=== PATIENT | female | born 1955 | race Caucasian/White ===

== ENCOUNTER 2025-05-11 16:21 | Inpatient (IN) | payer MEDICARE, SELFPAY ==
--- OUTSIDE RECORDS SUMMARY | 2025-05-04 09:55 | XMS_ITS | Encounter Summary ---
Author Organization [facility] Address [address] [place] [address] Care Team Providers Care Spray Technician Name Role Phone Uziel Ford MD Unavailable [phone] Rowdy Sandra DO Primary Care Provider [phone] Reason for Referral * (Routine) - New Request Specialty Diagnoses / Procedures Referred By Meli jernigan Referred To Contact Procedures OT Evbrenda and Fredis Sommer MD [address] [place] [address] Phone: tel: fax: Referral ID Status Reason Start Date Expiration Date V isits Requested Visits Authorized [id number] New Request 05/09/2025 05/09/2026 1 1 * (Routine) - New Request Specialty Diagnoses / Procedures Referred By Meli jernigan Referred To Contact Procedures PT Fredis Leiva MD [address] [place] [address] Phone: tel: fax: Referral ID Status Reason Start Date Expiration Date V isits Requested Visits Authorized [id number] New Request 05/09/2025 05/09/2026 1 1 * Imaging (Emergency) - New Request Specialty Diagnoses / Procedures Referred By Contac t Referred To Contact RADIOLOGY Procedures CT ABD+PEL W IV CON ONLY Lucero Russ MD [address] [place] [address] Phone: tel: fax: Referral ID Status Reason Start Date Expiration Date V isits Requested Visits Authorized [id number] New Request 05/04/2025 05/04/2026 1 1 Reason for Visit * Reason Comments Abdominal Pain * Auth/Cert (Routine) Specialty Diagnoses / Procedures Referred By Contac t Referred To Contact Diagnoses Partial small bowel obstruction (CMS/HCC HHS/HCC) Small bowel obstruction, partial (CMS/HCC HHS/HCC) Procedures NONE Fredis Navarro MD [address] [place] [address] Phone: tel: fax: Referral ID Status Reason Start Date Expiration Date Visits Re quested Visits Authorized [id number] 1 1 Encounter Details Date Type Department Care Team (Latest Contact Info) Description 05/04/2025 9:55 AM CDT - 05/11/2025 3:02 PM CDT Hospital Encounter [address] [address] Lucero Russ MD [address] [place], [place] [id number] Fredis Navarro MD [address] [place], [place] [address] Mumtaz Lim MD [address] [place] [address] Abdominal Pain Discharge Disposition: Swing Bed Social History Tobacco Use Types Packs/Day Years Used Date Smoking Tobacco: Former Cigarettes 0.5 50 1 09/02/1968 - 07/03/2019 Smokeless Tobacco: Never Alcohol Use Standard Drinks/Week Comments No 0 (1 standard drink = 0.6 oz pure alcohol) history of alcohol use and abuse- quit in april of 2019 (would have a pint of liquor per day) [facility] Utilities Answer Date Recorded In the past 12 months has e [employer], gas, oil, or water [employer] threatened to shut off services in your home? No 05/04/2025 Humiliation, Afraid, Rape, and Kick questionnair e Answer Date Recorded Within the last year, have y ou been afraid of your partner or ex-partner? No 05/04/2025 Within the last year, have y ou been humiliated or emotionally abused in other ways by your partner or ex-partner? No Within the last year, have y ou been kicked, hit, slapped, or otherwise physically hurt by your partner or ex-partner? No 05/04/2025 Within the last year, have y ou been raped or forced to have any kind of sexual activity by your partner or ex-partner? No 05/04/2025 AUDIT-C Answer Date Recorded Frequency of Alcohol Consumption Never 07/30/2018 Average Number of Drinks Not on file 018 Frequency of Binge Drinking Not on file 07/18 Overall Financial Resource Strain (CARDIA) Answe r Date Recorded How hard is it for you to pa y for the very basics like food, housing, medical care, and heating? Not hard at all 05/04/2025 Hunger Vital Sign Answer Date Recorded Within the past 12 months, y ou worried that your food would run out before you got the money to buy more. Never true 05/04/20 25 Within the past 12 months, t he food you bought just didn't last and you didn't have money to get more. Never true 05/04/2025 PRAPARE - Transportation Answer Date Re corded In the past 12 months, has l ack of transportation kept you from medical appointments or from getting medications? Yes 04/18 In the past 12 months, has l ack of transportation kept you from meetings, work, or from getting things needed for daily living? Yes 05/04/2025 Housing Stability Vital Sign Answer Sina e Recorded In the last 12 months, was t here a time when you were not able to pay the mortgage or rent on time? No 08/11/2023 In the last 12 months, how many places have you lived? 1 08/11/2023 In the last 12 months, was t here a time when you did not have a steady place to sleep or slept in a chcf (including now)? No 08/11/2023 Housing Stability Vital Sign Answer Sina e Recorded In the last 12 months, was t here a time when you were not able to pay the mortgage or rent on time? No 05/04/2025 In the past 12 months, how m any times have you moved where you were living? 0 05/04/2025 At any time in the past 12 m [facility], were you homeless or living in a chcf (including now)? 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 Sexual Orientation Not on file Occupation Industry Job Start Date Job End Date disabled Not on file Not on file Not on file documented as of this encounter Last Filed Vital Signs Vital Sign Reading Time Taken Comments Blood Pressure 141/80 05/11/2025 11:18 AM CDT Pulse 80 05/11/2025 11:18 AM CDT Temperature 37.1 C (98.8 F) 05/11/2025 11:18 AM CDT Respiratory Rate 18 05/10/2025 10:02 PM CDT Oxygen Saturation 100% 05/11/2025 11:18 AM CDT Inhaled Oxygen Concentration - - Weight 60.9 kg (134 lb 4.2 oz) 05/04/2025 9:57 A M CDT Height 165.1 cm (5' 5) 05/04/2025 9:57 AM CDT Body Mass Index 22.34 05/04/2025 9:57 AM CDT documented in this encounter Functional Status * Question Answer Date of Assessment Author Status Do you have serious difficulty walking or climbing stairs? No 05/04/2025 3:53 PM CDT Leigh Ann Fairchild RN Activ e * Question Answer Date of Assessment Author Status Do you have difficulty dressing or bathing? No 05/04/2025 3:53 PM CDT Leigh Ann Fairchild RN A ctive Because of a physical, mental, or emotional condition, do you have difficulty doing errands alone such as visiting a doctor's office or shopping? No 05/04/2025 3:53 PM CDT Leigh Ann Fairchild RN Active * Are you deaf or do you have serious difficulty hearing Answer Date of Assessment Author Status No 05/04/2025 3:53 PM CDT Leigh Ann Fairchild RN Active * Are you blind or do you have serious difficulty seeing, even when wearing glasses? Answer Date of Assessment Author Status No 05/04/2025 3:53 PM LALITHAT Leigh Ann Fairchild RN Active * Do you have serious difficulty walking or climbing stairs? Answer Date of Assessment Author Status No 05/04/2025 3:53 PM LALITHAT Leigh Ann Fairchild RN Active * Do you have difficulty dressing or bathing? Answer Date of Assessment Author Status No 05/04/2025 3:53 PM CDT Leigh Ann Fairchild RN Active * Because of a physical, mental, or emotional condition, do you have difficulty doing errands alone such as visiting a doctor's office or shopping? Answer Date of Assessment Author Status No 05/04/2025 3:53 PM CDT Leigh Ann Fairchild RN Active * Question Answer Date of Assessment Author Status Are you deaf or do you have serious difficulty hearing No 05/04/2025 3:53 PM LALITHAT Leigh Ann Fairchild RN Active Are you blind or do you have serious difficulty seeing, even when wearing glasses? No 05/04/2025 3:53 PM CDT Leigh Ann Fairchild RN Active * Calculated C-SSRS Risk Score (Lifetime/Recent) Answer Date of Assessment Author Status No Risk Indicated 05/04/2025 9:59 AM CDT uJlia Sosa, Nurse Caputo II Active * [place] Suicide Severity Rating Scale (Screener/Recent Self-Report) Question Answer Date of Assessment Author Status 1. Wish to be (Past 1 Month) No 05/04/2025 9:59 AM CDT SheilaJulia, Nurs e Sea Captain II Active 2. Non-Specific Active Suicidal Thoughts (Past 1 Month) No 05/04/2025 9:59 AM CDT Julia Sosa, Nurs e Sea Captain II Active 6. Suicidal Behavior (Lifetime) No 05/04/2025 9:59 AM CDT Julia Sosa, Nurs e Sea Captain II Active documented as of this encounter Mental Status * Question Answer Entry Date Author Status Because of a physical, mental, or emotional condition, do you have serious difficulty concentrating, remembering, or making decisions? No 05/04/2025 3:53 PM CDT Leigh Ann Fairchild RN A ctive * Because of a physical, mental, or emotional condition, do you have serious difficulty concentrating, remembering, or making decisions? Answer Entry Date Author Status No 05/04/2025 3:53 PM CDT Leigh Ann Fairchild RN Active documented in this encounter Discharge Summaries * Mumtaz Lim MD - 05/11/2025 2:28 PM CDT Images from the original note were not included. Hospitalist Discharge Summary Patient ID: Leila Adorno [id number] 70-year-old 1955 Admit date: 05/04/2025 Expected Discharge Date: 05/11/2025 Primary care Physician: ROWDY SANDRA DO Admitting Physician: Fredis Navarro MD Discharge Physician: MUMTAZ LIM MD Admission Diagnoses: Partial small bowel obstruction ([facility]/HCC HHS/HCC) [K56.600] Small bowel obstruction, partial (CMS/HCC HHS/HCC) [K56.600] Discharge Diagnoses: Recurrent partial small bowel obstruction Parastomal hernia Chronic hypoxic respiratory failure COPD Hypertension Past Medical History Past Medical History[1] Brief Hospital Course: 70-year-old female with PMH of bowel obstruction s/p sigmoid colectomy and end colostomy (2018), recurrent partial bowel obstruction, HTN, CAD, COPD on 3 L supplemental oxygen, anxiety, depression, RLS, hypothyroidism, and chronic anemia, presented to ED via EMS with progressively worsening left lower quadrant abdominal pain and decreased colostomy output. CT abdomen/pelvis with interval progression of multifocal abdominal wall hernias, with 1 ventral abdominal hernia containing new loop of small bowel with no evidence of high-grade obstruction. PETER General Surgery was consulted. Surgery recommended conservative management. Her symptoms improved, tolerating diet well. Appreciated. Therapy recommended patient to be discharged to the swing bed, case management involved discharge planning. Patient tolerating diet prior to discharge Problem Based course: 1. Recurrent partial small bowel obstruction, partially reducible parastomal hernia - PETER General Surgery on consult, appreciate recommendations - Surgical intervention deferred to surgery. colostomy bag with stool. No acute surgical intervention required at this time. Lactic acid within normal range. Advance diet, tolerating well Continue analgesia 2. Advanced COPD, chronic hypoxic respiratory failure - 3L home oxygen at baseline, continue oxygen as needed to maintain SpO2 88-92% - DuoNebs as needed 3. HTN, anxiety, RLS, hypothyroidism, chronic microcytic anemia - Chronic, stable, add complexity to case Continue home regimen 4. Weakness Therapy recommending swing bed placement Consults: general surgery Procedures/Significant Diagnostic Studies: XR ABD KUB Final Result by User, [id number] (05/07 719) [place] [address]49 1 VIEW(s) OF THE ABDOMEN History: Obstruction Comparison:February 20, 2020 A single view of the abdomen demonstrates a grossly normal bowel gas pattern. No pathologic intra-abdominal calcifications are seen. A nonspecific catheter overlies the left lower quadrant of the abdomen. There is no indication of free intraperitoneal air IMPRESSION: No acute findings Ordered By: IQRA DE JESUS Interpreted By: David Delcid MD, 05/07/2025 7:17 AM XR CHEST PORTABLE Final Result by User, [id number] (05/05 2217) [address] [address] Examination: Chest x-ray 1 view Exam Date/Time: 05/05/2025 7:03 PM REASON FOR EXAM: 70 years-old Female with Confirmation of Gastric Tube Placement. Comparison: Chest x-ray 10/27/2024, CT chest, abdomen pelvis 12/03/2024 Technique: Single AP view of the chest was obtained. Findings: Enteric tube terminates in the region of the stomach. Heart size is within normal limits. Lungs are clear. There is no pleural effusion or pneumothorax. Dilated loops of bowel in the upper abdomen. No acute osseous lesions are seen. IMPRESSION: 1. Enteric tube terminates in the region of the stomach. 2. Nonspecific, dilated loops of bowel in the upper abdomen. 3. No acute cardiopulmonary findings. Referred By: Interpreted By: Rio Lance MD, 05/05/2025 10:[address] ABD+PEL W IV CON ONLY Final Result by User, [id number] (05/04 1205) [address] [address] EXAMINATION: CT ABDOMEN/PELVIS WITH CONTRAST INDICATION: Abdominal pain. Colostomy. Patient states pain is at her hernia site. COMPARISON: CT chest, abdomen, and pelvis with contrast on 12/03/2024 TECHNIQUE: Computed tomography of the abdomen, and pelvis was performed after administration of intravenous contrast, 100 of Isovue 370, without immediate complication, according to routine protocol. Radiation dose reduction technique(s) were used FINDINGS: Lower Chest: Scattered pulmonary cysts or emphysematous changes in the lung bases. There are also areas of subsegmental atelectasis. No cardiomegaly or pericardial effusion. Coronary artery calcification. Upper abdominal organs: The liver and spleen are within normal limits. There is mild prominence of the proximal pancreatic duct measuring up to about 4 mm, largely unchanged from November of this year and likely within normal limits for patient. No biliary duct dilatation. No definite cholelithiasis. The adrenal glands appear to be within normal limits. There is a large exophytic simple cyst arising from the superior pole the right kidney. There is also a simple cyst in the inferior pole the left kidney. Tiny stable hemorrhagic cyst of the left kidney. No specific imaging follow-up is recommended based on consensus guidelines. Vascular: The abdominal aorta is normal in caliber. Lymph nodes: No retroperitoneal, mesenteric, or inguinal lymphadenopathy. Gastrointestinal: Since November of this year there has been a significant interval increase in size of the patient's multifocal abdominal wall hernias. Small abdominal wall hernia anteriorly arising near the tip of the liver containing only fat appears stable (series 2 image 55). Directly below this location and another anterior abdominal wall hernia has increased in size from the prior examination and now has a single loop of small bowel (image 69). No evidence of obstruction or bowel wall thickening. No adjacent inflammatory stranding. The patient's parastomal hernia (image 92 is grade which also likely has a lateral ventricle (Spigelian component, image 81) has also increased in size from the prior examination with larger and multiple loops of bowel in the hernia sac. This appears to have both small bowel and large bowel. There is no evidence of obstruction at this time, bowel wall thickening, or fluid in the hernia sacs. There is notable fecalization of small bowel material suggestive of decreased transit times and low-grade/partial obstruction cannot be entirely excluded. The rectal stump appears intact and unremarkable. The appendix is not well-visualized though there are no secondary signs of appendicitis. Miscellaneous: No free intraperitoneal air or ascites. Pelvis: No free pelvic fluid. The urinary bladder is normal. The uterus is surgically absent. No evidence of an adnexal mass. MSK: Stable L3 compression fracture. Mild degenerative changes of the lumbar spine. IMPRESSION: 1. Interval progression of the patient's multifocal abdominal wall hernias, as described above. 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 One of the patient's ventral abdominal wall hernias also has a new loop of small bowel within. There is no evidence of high-grade obstruction at this time, bowel wall thickening, or fluid in the hernia sacs. There is notable fecalization of small bowel material consistent with decreased transit times and low-grade/partial obstruction cannot be entirely excluded. 2. Other chronic and nonemergent findings as above. Referred By: Interpreted By: Mike Mirza MD, 05/04/2025 11:46 AM Lab Results Component Value Date CHOL 175 08/09/2023 TRI 58 08/09/2023 HDL 55 08/09/2023 LDL 108 08/09/2023 NA 140 05/11/2025 K 3.9 05/11/2025 CL 104 05/11/2025 CO2 33.2 (H) 05/11/2025 BUN 10 05/11/2025 CR 0.49 (L) 05/11/2025 CA 8.3 (L) 05/11/2025 GLU 95 05/11/2025 AGAP 2.8 05/11/2025 TP 5.3 (L) 05/11/2025 ALB 2.8 (L) 05/11/2025 AST 10 (L) 05/11/2025 ALT 13 05/11/2025 WBC 6.83 05/11/2025 HGB 9.3 (L) 05/11/2025 PLT 198 05/11/2025 HGBA1C 4.9 08/09/2023 TSH 9.140 (H) 07/11/2024 INR Date Value Ref Range Status 08/08/2023 1.1 (H) 0.8 - 1.0 Final Discharged Condition: good Code Status: Full Code Discharge Exam: Patient was seen and examined on day of discharge, vitals were stable. Disposition: discharged to senior care facility Patient Instructions: Current Discharge Medication List START taking these medications Details polyethylene glycol (GLYCOLAX) packet Take 240 mLs (17 g total) by mouth daily for 30 days. Dissolve powder in 240 mL water Qty: 30 packet, Refills: 0 CONTINUE these medications which have NOT CHANGED Details albuterol sulfate HFA 108 (90 Base) MCG/ACT inhaler Inhale 2 puffs into the lungs every 6 (six) hours as needed for Wheezing. alendronate (FOSAMAX) 70 MG tablet Take 1 tablet (70 mg total) by mouth every 7 days. Pt takes every friday buprenorphine-naloxone (SUBOXONE) 8-[address] 1 Film inside cheek 2 (two) times daily. cloNIDine (CATAPRES) 0.2 MG tablet Take 1 tablet (0.2 mg total) by mouth 2 (two) times daily. ENULOSE 10 GM/15ML solution Take 15 mLs (10 g total) by mouth daily. escitalopram (LEXAPRO) 10 MG tablet Take 1 tablet (10 mg total) by mouth daily. hydrOXYzine (ATARAX) 25 MG tablet Take 1 tablet (25 mg total) by mouth 3 (three) times daily as needed. ipratropium-albuterol (COMBIVENT RESPIMAT) 20-100 MCG/ACT inhaler Inhale 1 puff into the lungs 4 (four) times daily. Please provide assembled. levothyroxine (SYNTHROID) 125 MCG tablet Take 1 tablet (125 mcg total) by mouth every morning. lisinopril-hydroCHLOROthiazide (ZESTORETIC) 20-12.5 MG tablet Take 1 tablet by mouth daily. magnesium hydroxide (MILK OF MAGNESIA) 400 MG/5ML suspension Take 30 mLs by mouth daily as needed. montelukast (SINGULAIR) 10 MG tablet Take 1 tablet (10 mg total) by mouth daily. multi vitamin/minerals tablet Take 1 tablet by mouth daily. ondansetron (ZOFRAN) 4 MG tablet Take 1 tablet (4 mg total) by mouth every 8 (eight) hours as needed. pantoprazole EC (PROTONIX) 40 MG tablet Take 1 tablet (40 mg total) by mouth daily. prazosin (MINIPRESS) 2 MG capsule Take 1 capsule (2 mg total) by mouth 3 (three) times daily. rOPINIRole (REQUIP) 0.5 MG tablet Take 1 tablet (0.5 mg total) by mouth nightly at bedtime. sucralfate (CARAFATE) 1 GM/10ML suspension Take 10 mLs (1 g total) by mouth 3 (three) times daily before meals. Activity & DME Activity as tolerated Diet Diet cardiac Wound Care: as directed Follow-[place]: [place] [address] [facility] [address] Follow up in 1 week(s) WITH CBC/BMP Oliver Rodriguez [facility] [address] [facility] [address] Follow up in 2 week(s) Total time spent on discharge was 31 minutes. Thank you for choosing [facility]. Please call [phone] if you have any questions or concerns. Signed: MUMTAZ LIM MD 05/11/2025 2:28 PM [1] Past Medical History: Diagnosis Date Addiction to drug ([facility]) Alcohol abuse 05/22/2019 By medical records history. Anxiety Arthritis Ascending aortic aneurysm Asthma ([facility]) CAD (coronary artery disease) COPD (chronic obstructive pulmonary disease) ([facility]) Depression Encounter for preventive health examination 09/27/2013 Encounter for rehabilitation 06/15/2018 Encounter for screening colonoscopy 06/15/2018 Fatty liver Hypertension Hypothyroidism Lung disease Migraines MVP (mitral valve prolapse) Neuropathy PTSD (post-traumatic stress disorder) Sleep apnea no CPAP documented in this encounter Discharge Instructions * Discharge Instructions* Leigh Ann Fairchild RN - 05/10/2025 10:21 AM CDT RETURN TO ED IF WORSENING SYMPTOMS * Attachments The following attachments cannot be sent through Care Everywhere. * Buprenorphine and Naloxone, ADULT (Eritrean) * Mechanical Bowel Obstruction Discharge Instructions (Eritrean) documented in this encounter Medications at Time of Discharge albuterol sulfate HFA 108 (90 Base) MCG/ACT inhaler Inhale 2 puffs into the lungs every 6 (six) hours as needed for Wheezing. alendronate (FOSAMAX) 70 MG tablet Take 1 tablet (70 mg total) by mouth every 7 days. Pt takes every friday01/12/2025 buprenorphine-na loxone (SUBOXONE) 8-[address] 1 Film inside cheek 2 (two) times daily. cloNIDine (CATAPRES) 0.2 MG tablet Take 1 tablet (0.2 mg total) by mouth 2 (two) times daily. ENULOSE 10 GM/15ML solution Take 15 mLs (10 g total) by mouth daily. 02/08/2025 escitalopram (LEXAPRO) 10 MG tablet Take 1 tablet (10 mg total) by mouth daily. hydrOXYzine (ATARAX) 25 MG tablet Take 1 tablet (25 mg total) by mouth 3 (three) times daily as needed. 03/11/2025 ipratropium-albu terol (COMBIVENT RESPIMAT) 20-100 MCG/ACT inhaler Inhale 1 puff into the lungs 4 (four) times daily. Please provide assembled. levothyroxine (SYNTHROID) 125 MCG tablet Take 1 tablet (125 mcg total) by mouth every morning. lisinopril-hydro CHLOROthiazide (ZESTORETIC) 20-12.5 MG tablet Take 1 tablet by mouth daily. magnesium hydroxide (MILK OF MAGNESIA) 400 MG/5ML suspension Take 30 mLs by mouth daily as needed. 03/11/2025 montelukast (SINGULAIR) 10 MG tablet Take 1 tablet (10 mg total) by mouth daily. 03/11/2025 multi vitamin/minerals tablet Take 1 tablet by mouth daily. ondansetron (ZOFRAN) 4 MG tablet Take 1 tablet (4 mg total) by mouth every 8 (eight) hours as needed. 04/22/2025 pantoprazole EC (PROTONIX) 40 MG tablet Take 1 tablet (40 mg total) by mouth daily. 03/11/2025 polyethylene glycol (GLYCOLAX) packet Take 240 mLs (17 g total) by mouth daily for 30 days. Dissolve powder in 240 mL water 30 packet 05/11/2025 06/10/2025 prazosin (MINIPRESS) 2 MG capsule Take 1 capsule (2 mg total) by mouth 3 (three) times daily. rOPINIRole (REQUIP) 0.5 MG tablet Take 1 tablet (0.5 mg total) by mouth nightly at bedtime. 03/11/2025 sucralfate (CARAFATE) 1 GM/10ML suspension Take 10 mLs (1 g total) by mouth 3 (three) times daily before meals. 03/11/2025 documented as of this encounter Progress Notes * Biju Conrad RN - 05/11/2025 2:00 PM CDT Facility: [facility] N2N: [phone] Fax orders:[phone] Facility Pharmacy:hospital pharm Transport:RST @[facility] Updated:updated Unit RN Updated:updated * Ondina Mckinley Head Of Operation And Logistics - 05/11/2025 11:50 AM CDT Swing Bed admission has been approved. Accepting facility: [facility] - swing bed Name of Person calling: [employer] Auth Number: [id number] Number of Days Approved: 7 (05/11 - 05/17/25) Next Review Date: 05/17/25 * Elizabeth Apodacaician - 05/11/2025 11:29 AM CDT Contacted by Biju Kwok to initiate Swing Bed authorization. Accepting facility: [facility] swing bed Initiated and submitted clinical for Swing Bed Authorization via [employer] Pending Auth# [id number] Requested the determination be called directly to Biju Kwok Awaiting determination for Swing Bed admission. * Florentin Aguilar LPN - 05/11/2025 11:14 AM CDT Problem: Activity Intolerance Goal: Improved activity tolerance Outcome: Progressing * Biuj Conrad RN - 05/11/2025 9:59 AM CDT Complex care conference today with hospitalist, charge nurse, pharmacist, and RNCM. Patient continues to require inpatient care for placement and insurance auth. At this time, the working discharge plan is sbu placement. Finalization of disposition is pending acceptance and auth completed. RNCM will continue to assess for needs and confirm the discharge plan as inpatient care progresses. [address] [place] [address] has accepted and auth started. Pt will take own ostomy supplies with her. * Graciela Farley RN - 05/10/2025 6:52 PM CDT Still requiring pain medication and weak when up. Requesting to go to a rehab unit. * Mumtaz Lim MD - 05/10/2025 4:25 PM CDT Images from the original note were not included. Hospitalist Daily Progress Note Chief Complain: Abdominal pain ASSESSMENT /PLAN: Leila Adorno is a 70-year-old female with PMH of bowel obstruction s/p sigmoid colectomy andend colostomy (2019), recurrent partial bowel obstruction, HTN, CAD, COPD on 3 L supplemental oxygen, anxiety, depression, RLS, hypothyroidism, and chronic anemia, presented to ED via EMS with progressively worsening left lower quadrant abdominal pain and decreased colostomy output. CT abdomen/pelvis with interval progression of multifocal abdominal wall hernias, with 1 ventral abdominal hernia containing new loop of small bowel with no evidence of high-grade obstruction. [facility] General Surgery was consulted from the ED. Hospitalist contacted for admission. In ED, patient received 1 L bolus NS, 4 mg IV Zofran, 4 mg IV morphine, 0.5 mg IV hydromorphone, and contrast for CT. 1. Recurrent partial small bowel obstruction, partially reducible parastomal hernia - PETER General Surgery on consult, appreciate recommendations - Surgical intervention deferred to surgery. colostomy bag with stool. No acute surgical intervention required at this time. Lactic acid within normal range. Advance diet, tolerating well Continue lisinopril analgesia avoid narcotics as much as possible 2. Advanced COPD, chronic hypoxic respiratory failure - 3L home oxygen at baseline, continue oxygen as needed to maintain SpO2 88-92% - DuoNebs as needed 3. HTN, anxiety, RLS, hypothyroidism, chronic microcytic anemia - Chronic, stable, add complexity to case Continue home regimen 4. Weakness - PT/OT eval Body mass index is 22.34 kg/m??. DVT Prophylaxis: Subcu enoxaparin Code Status: Full Code Barriers to discharge- Waiting on Placement/Auth. Therapy recommending swing bed. Case management will discharge planning discharge once placement secured SUBJECTIVE Patient seen and examined. Patient denies any complaints of nausea, vomiting tolerating diet. Patient is anxious, concerned about recurrence of her symptoms in the near future OBJECTIVE Blood pressure (!) 159/85, pulse 80, temperature 98.4 ??F (36.9 ??C), temperature source Oral, resp. rate 20, height 1.651 m (5' 5), weight 60.9 kg (134 lb 4.2 oz), SpO2 100%. Wt Readings from Last 3 Encounters: 09/17/25 60.9 kg (134 lb 4.2 oz) 12/03/24 57.2 kg (126 lb) 10/27/24 56.2 kg (124 lb) Review of Systems All other systems reviewed and are negative. Physical Exam Constitutional: Appearance: She is well-developed. HENT: Head: Normocephalic and atraumatic. Eyes: Pupils: Pupils are equal, round, and reactive to light. Cardiovascular: Rate and Rhythm: Normal rate and regular rhythm. Heart sounds: No murmur heard. No friction rub. Pulmonary: Effort: No respiratory distress. Breath sounds: No wheezing or rales. Chest: Chest wall: No tenderness. Abdominal: General: Bowel sounds are normal. Palpations: Abdomen is soft. Tenderness: There is no abdominal tenderness. There is no guarding or rebound. Comments: Ostomy present Musculoskeletal: General: Normal range of motion. Cervical back: Normal range of motion and neck supple. Skin: General: Skin is warm and dry. Findings: No rash. Neurological: Mental Status: She is alert and oriented to person, place, and time. LABS: Recent Labs 05/08/25 0555 05/09/25 0511 05/10/25 0537 WBC 5.24 6.92 7.88 HGB 10.1* 10.0* 8.9* HCT 31.8* 30.9* 28.0* MCV 93.8 93.4 96.6 PLT 262 286 205 RBC 3.39* 3.31* 2.90* Recent Labs 05/08/25 0555 05/09/25 0511 05/10/25 0537 CO2 33.0* 32.8* 34.1* CL 105 107 107 GLU 110* 84 95 K 3.3* 3.7 3.8 NA 142 142 143 BUN 4* 5* 11 Intake/Output Summary (Last 24 hours) at 05/10/2025 1625 Last data filed at 05/10/2025 1000 Gross per 24 hour Intake 250 ml Output -- Net 250 ml Microbiology Results (last 14 days) Procedure Component Value Units Date/Time Gastric PH [[id number]] Order Status: Sent Lab Status: No result Specimen: GASTRIC FLUID CULTURE URINE [[id number]] Collected: 05/04/25 1013 Order Status: Completed Lab Status: Final result Updated: 05/05/25 1201 Specimen: URINE, CLEAN CATCH SPEC DESCRIPTION URINE CLEAN CATCH SPECIAL REQUESTS NO SPECIAL REQUEST CULTURE RESULT NO GROWTH (< OR = 1,000 CFU/ML) Radiology MEDICATIONS Scheduled medications citalopram 40 mg Oral Daily cloNIDine 0.2 mg Oral BID enoxaparin 40 mg Subcutaneous Nightly (enoxaparin) levothyroxine 125 mcg Oral QAM normal saline 3-10 mL Intravenous Q8H pantoprazole 40 mg Intravenous Daily polyethylene glycol 1 packet Oral Daily rOPINIRole 0.5 mg Oral Nightly at bedtime Infusion PRN albuterol sulfate HFA, benzocaine 20 %, glucose, dextrose 10 % bolus, glucagon, hydrALAZINE, HYDROcodone-acetaminophen, influenza, ipratropium-albuterol, ketorolac, LORazepam, naLOXone, normal saline, ondansetron, saline enema adult MUMTAZ LIM MD 4:25 PM 05/10/2025 * Mallory Ge RD - 05/10/2025 4:14 PM CDT CLINICAL DIETITIAN ASSESSMENT NUTRITION ASSESSMENT Past Medical History[1] Initial History (05/10/2025): Remote Registered Dietitian (LYLA) completing an initial assessment secondary to low BMI. Patient is a 70-year-old female admitted secondary to Partial small bowel obstruction (CMS/HCC HHS/HCC) [K56.600] Small bowel obstruction, partial (CMS/HCC HHS/HCC) [K56.600]. Per H&P- pt presented with progressively worsening left lower quadrant abdominal pain and decreased colostomy output. Admitted with recurrent partial SBO, irreducible hernia. No acute surgical intervention planned, pt's diet has beenadvanced and surgery team signed off. Weight history (05/10/2025): Weight change noted in the last year, however pt currently stable at the same weight as last year. Wt Readings from Last 8 Encounters: 05/04/25 60.9 kg (134 lb 4.2 oz) 12/03/24 57.2 kg (126 lb) 10/27/24 56.2 kg (124 lb) 07/12/24 56.3 kg (124 lb 1.9 oz) 07/10/24 55.3 kg (122 lb) 05/01/24 61.1 kg (134 lb 11.2 oz) 01/05/24 59 kg (130 lb) 08/21/23 67 kg (147 lb 11.3 oz) Diet history (05/10/2025): RD working remotely. Unable to reach pt at time of assessment via phone call attempts, will re-try as able. Diet has been advanced to solids since 05/08, ordering adequate food at meal times, 100% PO intake when documented in dietary intake by nursing. No nutrition concernsat this time. Food allergies/intolerances: NKFA per EHR Cultural/Hoahaoism food preferences: None reported in EHR Food Insecurity: No Food Insecurity (05/04/2025) Hunger Vital Sign Worried About Running Out of Food in the Last Year: Never true Ran Out of Food in the Last Year: Never true Reviewed. Cardiorespiratory: on nasal cannula Neuro: WDL per EHR Edema: no edema noted per EHR GI: abdomen soft, non-tender, and non-distended with positive bowel sounds per talent partner; last BM documented on 05/09 (colostomy) Chewing/swallowing problems: None reported Skin: no nutrition-related concerns noted at this time Nutrition-focused physical findings: Unable to complete a physical exam at this time due to RD working remotely. Labs: Reviewed. No nutrition-related concerns requiring new intervention at this time. Recent Labs Lab 05/08/25 0612 05/08/25 2354 05/09/25 0540 05/09/25 1157 05/09/25 1416 05/10/25 0001 05/10/25 0603 GLUCOSEPOC 107 103 106 186* 112* 104 102 Recent Labs Lab 05/07/25 0459 05/08/25 0555 05/09/25 0511 05/10/25 0537 NA 139 142 142 143 K 3.0* 3.3* 3.7 3.8 MAGNESIUM 1.4* -- -- -- BUN 3* 4* 5* 11 CR 0.35* 0.32* 0.38* 0.47* GFREST >90 >90 >90 >90 GLU 121* 110* 84 95 HGB A1C Date Value Ref Range Status 08/09/2023 4.9 <5.7 % Final 12/15/2022 5.2 <5.7 % Final Meds: Reviewed. No nutrition-related concerns requiring intervention at this time. citalopram 40 mg Oral Daily cloNIDine 0.2 mg Oral BID enoxaparin 40 mg Subcutaneous Nightly (enoxaparin) levothyroxine 125 mcg Oral QAM normal saline 3-10 mL Intravenous Q8H pantoprazole 40 mg Intravenous Daily polyethylene glycol 1 packet Oral Daily rOPINIRole 0.5 mg Oral Nightly at bedtime Anthropometrics: Admission weight: 60.9 kg (Date: 05/10; Method: Bed) Last 5 Recorded Weights 05/04/25 0957 Weight: 60.9 kg (134 lb 4.2 oz) Weight status: No new weight since admission Height: 165.1 cm Actual Body Weight (ABW): 60.9 kg [place]it Body Weight (IBW): 56.8 kg (ABW is 107% of IBW) Dosing Weight (DW): 60.9 kg Body Mass Index (BMI): 22.34 kg/m?? (Underweight for age) Estimated Nutrient Needs: Calories: 9598-6959 kcal/day based on 25-30 kcal/kg, using ABW Protein: 73 gm/day based on 1.2 gm/kg, using ABW Fluid: 1500 mL/day based on minimum intake recommendation for older adults Current diet order: Diet general Appropriate Diet cardiac Current diet appropriate? Yes Current intake sufficient to meet nutritional needs? Yes; PO intake of meals has not been consistently reported in EHR. However, per review of [employer], patient has been ordering an average of 2354 kcal/day (over 100% of estimated needs) and 72 gm/day protein (99% of estimated needs) over the past 3 days. Fluid intake appears adequate for hydration. Pain affecting PO intake? N/A Nutrition Education: unable to assess education needs at this time NUTRITION DIAGNOSIS No acute nutrition diagnosis identified at this time. RD will continue to rescreen per clinical nutrition policy and will remain available for consult. Plan: Continue to provide basic nutrition services Discharge nutrition plan: Discharge needs assessed. Will provide/update discharge instructions as needed. MALLORY GE RD, LDN [1] Past Medical History: Diagnosis Date Addiction to drug ([facility]) Alcohol abuse 05/22/2019 By medical records history. Anxiety Arthritis Ascending aortic aneurysm Asthma ([facility]) CAD (coronary artery disease) COPD (chronic obstructive pulmonary disease) ([facility]) Depression Encounter for preventive health examination 09/27/2013 Encounter for rehabilitation 06/15/2018 Encounter for screening colonoscopy 06/15/2018 Fatty liver Hypertension Hypothyroidism Lung disease Migraines MVP (mitral valve prolapse) Neuropathy PTSD (post-traumatic stress disorder) Sleep apnea no CPAP * Kari Knight, PT - 05/10/2025 2:11 PM CDTSummary: PT Eval PT Initial Evaluation Discharge Recommendation: Swing bed unit DME equipment recommendation: Patient owns a walker - recommend use of device at all times Activity Recommendation for management professional: Up with CGA and 2 wh/walker; ambulate QID; up to chair for meals 05/10/25 1411 Therapy Visit Ordering Provider MD Melanie PT Evaluation Completed on 05/10/25 Subjective RN approved therapy session. Patient was in bed in room 1120A upon entering. Patient wasagreeable to therapy evaluations and willing to participate with mobility. Patient reports weaknessand fatigue, unsure if she can return home, but open to rehab placement at a swing bed if needed. Reason for admission Patient presented to ED with c/o progressively worsening LLQ abdominal pain, decreased colostomy output, elevated BP. Patient was admitted on with recurrent partial SBO, partially reducible parastomal hernia, partially reducible epigastric pain. PMH (including, but not limited to): bowel obstruction, sigmoid colectomy, end colostomy, HTN, CAD, COPD on 3L O2, anxiety/depression, RLS, hypothyroidism, anemia.......Orders: Eval and Treat........Activity: as tolerated Verified Two Patient Identifiers Yes Patient consents to therapy Yes Acute Inpatient PT Time Calculation PT Start Time 1349 PT Stop Time 1411 PT Time Calculation (min) 22 min Precautions General Precautions Bed Alarm;Chair Alarm;Fall Risk;Supplemental oxygen Skin Integrity Bruising to L hand (present prior to admit - hit hand on her bedpost a few days before admit) Other 3L O2; telemetry; colostomy; LUE IV access Prior Function PLOF Comments Patient lives with her son and his fiance in a 2 story home/duplex with 1 steps to enter, with handrail(s). Bathroom has a walk-in shower (no seat or grab bar), with standard toilet seat and vanity nearby for support. Patient owns a 2 wh/walker and commode. Patient uses the walker occasionally, states she uses the commode during the day when her son isn't home (so she will be safer, then ambulating to/from bathroom). Prior to admit patient was functionally independent with mobility. Patient was independent with ADL's and son and his fiance completed most IADL's. Patient reports no history of falls. Patient has assistance from her caregiver who comes 2 days/week for 2 hrs/day, to assist with any IADL's needed. Patient's son and fiance do work days, but can help in the evenings. Pain Pain Yes Pain Score 0-10 Scale Pain Level 9 Location hernia pain Interventions Re-direction Activity Tolerance Endurance Quality Fair Limiting Factors to Endurance Acute deconditioning;Fatigue;Pain;Weakness Activity Tolerance Comments Patient is limited by acute on chronic deconditioning, generalized weakness, unsteady balance, fatigue and pain, impairing activity tolerance and independence with mobility. Patient reports she typically only ambulates household distances, mostly using a walker, and often only when someone is home. Vision - Basic Assessment Current Vision Wears glasses all the time Vision - Complex Assessment Acuity Able to read clock/calendar on wall without difficulty;Able to read employee name badge without difficulty Additional Comments Patient reports no acute visual changes this admit. Cognition Overall Cognitive Status WFL Arousal/Alertness Appropriate responses to stimuli Attention Span Appears intact Memory Appears intact Orientation Level Oriented X4 Following Commands Follows multistep commands without difficulty Safety Judgment Good awareness of safety precautions Awareness of Errors Good awareness of errors made Deficits Fully aware of deficits Problem Solving Able to problem solve independently Comments Patient was alert, oriented, able to follow all commands. Patient demonstrates adequate safety with mobility, and compensates well throughout session. Patient is aware of her deficits, able to perform appropriate activity/rest techniques, stated understanding of functional deficits and incr eased fall risk concerns. Motor Planning Appears intact Perseveration Not present Initiation Appears intact Sensation Light Touch No apparent deficits Additional Comments Pt. reports mild numbness in bilateral fingertips at baseline, but gross light touch sensation intact Proprioception Proprioception No apparent deficits Overall Extremity Assessment Lower Extremity Gross AROM: WFL's......Gross MMT: 11/20 Bed Mobility Supine to Sit SBA/supervision Other (Comment) Exited bed towards L side TRANSFERS Sit to Stand Contact guard assist (2 wh/walker) Bed to Chair Contact guard assist (Patient exhibited LE shakiness throughout standpivot transfer, CGA provided for safety (no use of walker for this transfer)) Gait Gait Assistance Contact guard assist Assistive Device 2 Wheeled walker Distance Ambulated (ft) 90 ft Other (Comment) Patient ambulated hallway distance with 2 wh/walker, CGA throughout for safety. Patient presents with decreased gait speed, step length and foot clearance. Patient limited with distance due to LE weakness/fatigue, mild SOB and decreased endurance. Balance Sitting - Static Independent Sitting - Dynamic Independent Standing - Static SBA;Support of both upper extremities (2 wh/walker) Standing - Dynamic CGA;Support of both upper extremities (2 wh/walker) Other (Comment) No overt loss of balance or LE buckling in standing, but increased fall risk due toLE weakness, quick fatigue, required use of 2 wh/walker and CGA at all times for safety. Assessment Personal Factors/Comorbidities Impacting Care 3-4 personal factors/comorbidities Examination of Body Systems High (at least 4 Elements) Objectives of Body Systems Impaired bed mobility;Impaired transfers;Impaired ambulation;Impaired balance;Impaired stair negotiation;Decreased ADL status;Impaired respiratory function;Decreased LE strength;Decreased endurance;Decreased high-level ADLs;Pain with mobility Clinical Presentation of Patient Evolving and changing characteristics Complexity Level of Evaluation Moderate Prognosis Good PT Assess/Eval Other (Comment) Patient is a pleasant 70-year-old y/o female who was admitted with recurrent partial SBO and hernia. Patient was functionally independent at baseline, but deconditionedwith declining activity tolerance and strength, using a walker. Patient was scheduling HH therapy services to assess this week prior to admit. Patient currently presents with generalized weakness, fatigue, continued pain, unsteady balance and acute on chronic deconditioning compared to baseline mobility, resulting in functional mobility impairments, decreased independence, increased fall risk andsafety concerns. Patient required CGA for transfers and ambulation, only tolerance short gait distance trial of 90ft prior to LE weakness and fatigue. Patient noted to have LE shakiness throughout, instability in standing, SOB and increased need for activity/rest routines. Patient may benefit from continued physical therapy services during admit, and would recommend swing bed placement upon discharge to address the above deficits in strength, balance, gait and overall mobility. Patient/Family Training Other (Comment) Patient was educated on bed mobility, transfers, gait, use of walker, balance training, fall prevention, activity/rest routines, as well as therapy plan and discharge recommendations,importance of continued mobility throughout admit, getting up to chair daily and ambulating with nursing staff as appropriate. Discharge Recommendation PT Recommendation Swing bed unit PT Equipment Recommended 2 Wheeled walker Barriers to Community Discharge Lack of caregiver;Stairs (Patient has limited assistance available during the day) Plan PT Treatments/Interventions Gait Training;Therapeutic Exercises;Therapeutic Activities;Neuromuscular re-education;Patient/family training PT Frequency 5 times/week PT - Next Appointment 05/10/25 If this is the last treatment note,it will serve as the discharge summary Yes End of Session End of Session Safety Call light within reach;Nursing aware of session;Transfer status education;Chair alarm set/activated The below POC to be followed until 05/24/25 at that time POC will be re-assessed to ensure patient is making appropriate progression. Pt. will be able to perform supine to/from sitting at EOB with Independent to improve mobility. Pt. will be able to perform sit to/from standing with Modified Stigler using wheeled walker toimprove independence. Pt. will be able to ambulate 200-300 feet with Modified Stigler using wheeled walker to help improve strength and functional independence. Pt. will be able to maintain static sitting balance for less than 5 minutes with Independent to improve independence. Pt. will be able to maintain dynamic sitting balance on soft surface with Independent to improve functional mobility. Pt. will be able to maintain static standing balance less than 5 minutes with Modified Independenceusing wheeled walker to improve independence. Pt. will be able to maintain dynamic standing balance during side-stepping L/R and marching with Modified Stigler using wheeled walker to improve functional mobility. Pt. will be able to ascend/descend 3 steps with Modified Stigler using handrail(s) to increasestrength and to safely access home at D/C. Education: Primary Learners Name: Leila Adorno Primary Language of learner: Eritre[place] Patient was educated on transfers ADLs balance bed mobility equipment therapy plan gait safety energy conservation. Education was completed one to one verbal hands-on this date. Preference of learning new concepts one to one verbal hands-on Barriers to education this date were fatigue. Response to education this date verbalized understanding asks questions demos with verbal cues needs follow up needs assistance. 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 Pt now demonstrates with weakness, decreased endurance, decreased balance, and decreased activity tolerance impacting her ability to complete ADLs and functional mobility at baseline. Pt would benefit from continued inpt OT in order to address theabove stated deficits. At this time, recommending Pt go to short term rehab prior to returning home. 05/10/25 1416 Therapy Visit OT Received On 05/10/25 OT Evaluation Completed on 05/10/25 Reason for admission Patient presented to ED with c/o progressively worsening LLQ abdominal pain, decreased colostomy output, elevated BP. Patient was admitted on with recurrent partial SBO, partially reducible parastomal hernia, partially reducible epigastric pain. PMH (including, but not limited to): bowel obstruction, sigmoid colectomy, end colostomy, HTN, CAD, COPD on 3L O2, anxiety/depression, RLS, hypothyroidism, anemia.......Orders: Eval and Treat........Activity: as tolerated Ordering Provider MD Melanie Verified Two Patient Identifiers Yes Patient consents to therapy Yes Acute Inpatient OT Time Calculation OT Start Time 1348 OT Stop Time 1411 OT Time Calculation (min) 23 min Precautions General Precautions Bed Alarm;Chair Alarm;Fall Risk;Supplemental oxygen Skin Integrity Bruising to L hand (present prior to admit - hit hand on her bedpost a few days before admit) Other 3L O2; telemetry; colostomy; LUE IV access Subjective Subjective RN ok'd session. Pt reports she does not feel like she can return home and still feels weak. Prior Function PLOF Comments Patient lives with her son and his fiance in a 2 story home/duplex with 1 steps to enter, with handrail(s). Bathroom has a walk-in shower (no seat or grab bar), with standard toilet seat and vanity nearby for support. Patient owns a 2 wh/walker and commode. Patient uses the walker occasionally, states she uses the commode during the day when her son isn't home (so she will be safer, then ambulating to/from bathroom). Prior to admit patient was functionally independent with mobility. Patient was independent with ADL's and son and his fiance completed most IADL's. Patient reports no history of falls. Patient has assistance from her caregiver who comes 2 days/week for 2 hrs/day, to assist with any IADL's needed. Patient's son and fiance do work days, but can help in the evenings. Pain Pain Yes Pain Score 0-10 Scale Pain Level 9 Location hernia pain Interventions Re-direction;Re-positioning Objective Objective Pt received for OT session supinei n bed. Activity Tolerance Limiting Factors to Endurance Acute deconditioning;Fatigue;Pain;Weakness Vision - Basic Assessment Current Vision Wears glasses all the time Vision - Complex Assessment Acuity Able to read clock/calendar on wall without difficulty;Able to read employee name badge without difficulty Additional Comments Patient reports no acute visual changes this admit. Cognition Overall Cognitive Status WFL Arousal/Alertness Appropriate responses to stimuli Attention Span Appears intact Memory Appears intact Orientation Level Oriented X4 Following Commands Follows multistep commands without difficulty Safety Judgment Good awareness of safety precautions Awareness of Errors Assistance required to identify errors made Deficits Fully aware of deficits Problem Solving Able to problem solve independently Comments Min verbal cues for walker safety and proper body positioning. Appears aware of her current deficits. Overall Extremity Assessment Upper Extremity Husam UE AROM: WFL; MMT: 4+/5 Hand Function Hand Dominance Right Gross Grasp Right;Functional;Left;Impaired Coordination Impaired Hand Comment Pt with Lt hand bruising (injury a few days prior to coming to the hospital) and difficulty grasping with fine motor coordination tasks. Pt with difficulty flexing her Lt 2nd digit at the MCP, PIP, and DIP. MD notified in room. Sensation Light Touch No apparent deficits Additional Comments Pt. reports mild numbness in bilateral fingertips at baseline, but gross light touch sensation intact ADL Grooming Assistance CGA;Standing at sink Grooming Deficit Wash/dry hands;Standing with assistive device LE Dressing Assistance Stand by;Sitting in chair LE Dressing Deficit Don/doff R sock;Don/doff L sock Toileting Assistance CGA Toileting Deficit Clothing management up;Clothing management down;Perineal hygiene Toileting Comment CGA for gown management, SBA for kevin-area hygeine while seated Bed Mobility Supine to Sit SBA/supervision Other (Comment) HOB elevated Functional Transfers Sit to Stand Contact guard assist Bed to Chair Contact guard assist Toilet Transfers CGA;Grab bars Functional Mobility Pt performed functional transfers/mobility in room and hallway mocking short household distances using 2WW with CGA. Min verbal cues for walker safety and proper body positioning.Pt fatigues quickly and demonstrates Husam LE shakiness with mobility. Balance Sitting - Static Independent Sitting - Dynamic Independent Standing - Static SBA;Support of both upper extremities Standing - Dynamic CGA;Support of both upper extremities Other (Comment) No specific LOB, generally unsteady with quick fatigue. Assessment Occupational Profile and History Complexity Moderate (Expanded) Performance Skills Deficits Bathing/showering;Dressing;Functional mobility;Personal hygiene and grooming;Toileting Performance Deficit Level Moderate (3-5 deficits) Clinical Decision Making Moderate (min/mod modifications) Complexity Level of Evaluation Moderate Prognosis Good Discharge Recommendation OT Recommendation Swing bed unit Barriers to Community Discharge Lack of caregiver;Stairs (Patient has limited assistance available during the day) Plan OT Treatment/Intervention Self-care training;Therapeutic exercises;Therapeutic activities;Patient/family training;Functional activity;Safety OT Frequency 5 times/week OT - Next Appointment 05/10/25 If this is the last treatment note, it will serve as the discharge summary Yes End of Session End of Session Safety Chair alarm set/activated;Call light within reach;Nursing aware of session;Transfer status education The below POC to be followed until 05/24/25 at that time POC will be re-assessed to ensure patient is making appropriate progression. Pt will complete dressing with Modified Stigler sitting EOB or in chair to increase safety andindependence with ADLs. Pt will complete all grooming and self-feeding with Independent to increased safety and independence with ADLs. Pt will complete ADLs at sink with Modified Stigler to increase independence with ADLs. Pt will complete toileting hygiene and clothing management with Modified Stigler to increase safety and independence with ADLs. Pt to complete bathing with Modified Stigler seated in chair/EOB to increase independence withADLs. Pt will complete bed mobility with Independent with HOB flat to increase safety and independence with functional transfers. Pt will complete transfers all surfaces to/from all surfaces with Modified Stigler using wheeled walker to increase functional mobility and transfers. Pt will participate within skilled therapy services for 20-30 minutes with 2 rest breaks to increase independence with ADLs and functional transfers. Pt will increase dynamic standing balance standing at sink/dressing completing ADLs with Modified Stigler with wheeled walker for 20-30 minutes to increase safety and independence with ADLs and functional transfers. Pt to increase Husam UE MMT 5/5 to increase strength, safety and independence with ADLs and functional transfers. Pt will increase fine/gross motor coordination of Lt UE with completion of ADLS and motor control activities to increase safety and independence with ADLs and functional motor tasks. Education: Primary Learners Name: eLila Adorno Primary Language of learner: [place] Patient was educated on precautions transfers ADLs balance bed mobility equipment therapy plan safety. Education was completed one to one verbal hands-on this date. Preference of learning new concepts one to one verbal hands-on Barriers to education this date were fatigue emotional. Response to education this date verbalized understanding needs reinforcement needs follow up needs assistance. * Biju Conrad RN - 05/10/2025 10:50 AM CDT 05/10/25 1050 Forms Reinforcement Important Message from Medicare (Subsequent IMM) Signed Copy delivered * Biju Conrad RN - 05/10/2025 10:04 AM CDT 05/10/25 1004 Interdisciplinary Group Conference Team Members Present Physician;Case/Care management;Nursing Physician present for group conference Rangu Patient Current Status Paient current status Inpatient Barriers to Discharge Inpatient Review Barriers to Discharge Inpatient No Barrier- Medical Milestone in Process;Pending Therapy PT/OT (on protonix) Type of Consult Delay Surgery Patient expects to be discharged to Patient expects to be discharged to: Home with home health care ([facility]) Discharge needs Insurance Authorization needed No Does the patient need discharge transport arranged? Yes Type of transportation needed? Uber Has discharge transport been arranged? No IV Infusion at discharge No DME Needed at Discharge No 0720 met with patient no new needs still c/o being weak * Fredis Navarro MD - 05/09/2025 2:02 PM CDT Images from the original note were not included. Progress note CC:-Abdominal pain ASSESSMENT /PLAN Leila Adorno is a 70-year-old female with PMH of bowel obstruction s/p sigmoid colectomy andend colostomy (2019), recurrent partial bowel obstruction, HTN, CAD, COPD on 3 L supplemental oxygen, anxiety, depression, RLS, hypothyroidism, and chronic anemia, presented to ED via EMS with progressively worsening left lower quadrant abdominal pain and decreased colostomy output. CT abdomen/pelvis with interval progression of multifocal abdominal wall hernias, with 1 ventral abdominal hernia containing new loop of small bowel with no evidence of high-grade obstruction. [facility] General Surgery was consulted from the ED. Hospitalist contacted for admission. In ED, patient received 1 L bolus NS, 4 mg IV Zofran, 4 mg IV morphine, 0.5 mg IV hydromorphone, and contrast for CT. 1. Recurrent partial small bowel obstruction, partially reducible parastomal hernia - [facility] General Surgery on consult, appreciate recommendations - Surgical intervention deferred to surgery. - Tolerating clear liquid. Colostomy bag with stool. No acute surgical intervention required at this time. Lactic acid within normal range. - Continue with IV Toradol as needed monitor renal function. Avoid IV narcotics as able - VS every 4 hours 2. Advanced COPD, chronic hypoxic respiratory failure - 3L home oxygen at baseline, continue oxygen as needed to maintain SpO2 88-92% - DuoNebs as needed 3. HTN, anxiety, RLS, hypothyroidism, chronic microcytic anemia - Chronic, stable, add complexity to case - Added IV Ativan and IV hydralazine as needed given n.p.o. status - Resume home meds as able 4. Weakness - PT/OT eval SUBJECTIVE Patient seen and examined. Continues to complain of abdominal pain but states that it is better. Colostomy tube with stool. Reports feeling weak since admitted to the hospital. Has not been evaluatedby therapy yet. OBJECTIVE Wt Readings from Last 3 Encounters: 05/04/25 60.9 kg (134 lb 4.2 oz) 12/03/24 57.2 kg (126 lb) 10/27/24 56.2 kg (124 lb) Temp: 98.4 ??F (36.9 ??C) BP Readings from Last 3 Encounters: 05/09/25 (!) 145/83 12/04/24 (!) 151/86 10/27/24 99/70 Pulse Readings from Last 3 Encounters: 05/09/25 (!) 104 12/03/24 85 10/27/24 69 Review of Systems Gastrointestinal: Positive for abdominal pain. All other systems reviewed and are negative. PHYSICAL EXAMINATION: Physical Exam Constitutional: Appearance: Normal appearance. HENT: Head: Normocephalic and atraumatic. Right Ear: External ear normal. Left Ear: External ear normal. Mouth/Throat: Mouth: Mucous membranes are moist. Eyes: Extraocular Movements: Extraocular movements intact. Cardiovascular: Rate and Rhythm: Normal rate and regular rhythm. Pulmonary: Effort: Pulmonary effort is normal. Breath sounds: Normal breath sounds. Abdominal: General: Abdomen is flat. Palpations: Abdomen is soft. Tenderness: There is abdominal tenderness. Comments: Colostomy present, parastomal hernia Neurological: Mental Status: She is alert. LABS: Recent Labs 05/07/25 0459 05/08/25 0555 05/09/25 0511 WBC 5.17 5.24 6.92 HGB 10.2* 10.1* 10.0* HCT 32.0* 31.8* 30.9* MCV 92.8 93.8 93.4 PLT 250 262 286 RBC 3.45* 3.39* 3.31* Recent Labs 05/07/25 0459 05/08/25 0555 05/09/25 0511 CO2 33.0* 33.0* 32.8* CL 102 105 107 GLU 121* 110* 84 K 3.0* 3.3* 3.7 NA 139 142 142 BUN 3* 4* 5* Intake/Output Summary (Last 24 hours) at 05/09/2025 1402 Last data filed at 05/09/2025 1000 Gross per 24 hour Intake 6544 ml Output 250 ml Net 6294 ml Microbiology Results (last 14 days) Procedure Component Value Units Date/Time Gastric PH [[id number]] Order Status: Sent Lab Status: No result Specimen: GASTRIC FLUID CULTURE URINE [[id number]] Collected: 05/04/25 1013 Order Status: Completed Lab Status: Final result Updated: 05/05/25 1201 Specimen: URINE, CLEAN CATCH SPEC DESCRIPTION URINE CLEAN CATCH SPECIAL REQUESTS NO SPECIAL REQUEST CULTURE RESULT NO GROWTH (< OR = 1,000 CFU/ML) Radiology MEDICATIONS Scheduled medications citalopram 40 mg Oral Daily cloNIDine 0.2 mg Oral BID enoxaparin 40 mg Subcutaneous Nightly (enoxaparin) levothyroxine 125 mcg Oral QAM normal saline 3-10 mL Intravenous Q8H pantoprazole 40 mg Intravenous Daily polyethylene glycol 1 packet Oral Daily rOPINIRole 0.5 mg Oral Nightly at bedtime Infusion PRN albuterol sulfate HFA, benzocaine 20 %, glucose, dextrose 10 % bolus, glucagon, hydrALAZINE, HYDROcodone-acetaminophen, influenza, ipratropium-albuterol, ketorolac, LORazepam, naLOXone, normal saline, ondansetron, saline enema adult Fredis Navarro MD 2:02 PM 05/09/2025 * Biju Conrad RN - 05/09/2025 9:10 AM CDT 05/09/25 0910 Interdisciplinary Group Conference Team Members Present Physician;Case/Care management;Nursing Physician present for group conference Melanie Patient Current Status Paient current status Inpatient Barriers to Discharge Inpatient Review Barriers to Discharge Inpatient No Barrier- Medical Milestone in Process Type of Consult Delay Surgery Patient expects to be discharged to Patient expects to be discharged to: Home or Self care no new needs Discharge needs Insurance Authorization needed No Does the patient need discharge transport arranged? Yes Type of transportation needed? Uber Has discharge transport been arranged? No IV Infusion at discharge No DME Needed at Discharge No 0728 met with patient states she is still not feeling good * Adali Trinidad MD - 05/08/2025 8:54 PM CDT HOME MEDS NEEDS TO BE RESUMED IN MORNING * Fredis Navarro MD - 05/08/2025 2:07 PM CDT Images from the original note were not included. Progress note CC:-Abdominal pain ASSESSMENT /PLAN Leila Adorno is a 70-year-old female with PMH of bowel obstruction s/p sigmoid colectomy andend colostomy (2019), recurrent partial bowel obstruction, HTN, CAD, COPD on 3 L supplemental oxygen, anxiety, depression, RLS, hypothyroidism, and chronic anemia, presented to ED via EMS with progressively worsening left lower quadrant abdominal pain and decreased colostomy output. CT abdomen/pelvis with interval progression of multifocal abdominal wall hernias, with 1 ventral abdominal hernia containing new loop of small bowel with no evidence of high-grade obstruction. [facility] General Surgery was consulted from the ED. Hospitalist contacted for admission. In ED, patient received 1 L bolus NS, 4 mg IV Zofran, 4 mg IV morphine, 0.5 mg IV hydromorphone, and contrast for CT. 1. Recurrent partial small bowel obstruction, partially reducible parastomal hernia - [facility] General Surgery on consult, appreciate recommendations - Surgical intervention deferred to surgery. - Tolerating clear liquid. Colostomy bag with stool. No acute surgical intervention required at this time. Lactic acid within normal range. - Continue with IV morphine 4 mg every 3 hours as needed. Added IV Toradol as needed monitor renal function. - VS every 4 hours 2. Advanced COPD, chronic hypoxic respiratory failure - 3L home oxygen at baseline, continue oxygen as needed to maintain SpO2 88-92% - DuoNebs as needed 3. HTN, anxiety, RLS, hypothyroidism, chronic microcytic anemia - Chronic, stable, add complexity to case - Added IV Ativan and IV hydralazine as needed given n.p.o. status - Resume home meds as able SUBJECTIVE Patient seen and examined. Reports improvement in abdominal pain. Denies any nausea or vomiting. Istolerating clear liquid. OBJECTIVE Wt Readings from Last 3 Encounters: 05/04/25 60.9 kg (134 lb 4.2 oz) 12/03/24 57.2 kg (126 lb) 10/27/24 56.2 kg (124 lb) Temp: 97.7 ??F (36.5 ??C) BP Readings from Last 3 Encounters: 05/08/25 (!) 156/88 12/04/24 (!) 151/86 10/27/24 99/70 Pulse Readings from Last 3 Encounters: 05/08/25 91 12/03/24 85 10/27/24 69 Review of Systems Gastrointestinal: Positive for abdominal pain. All other systems reviewed and are negative. PHYSICAL EXAMINATION: Physical Exam Constitutional: Appearance: Normal appearance. HENT: Head: Normocephalic and atraumatic. Right Ear: External ear normal. Left Ear: External ear normal. Mouth/Throat: Mouth: Mucous membranes are moist. Eyes: Extraocular Movements: Extraocular movements intact. Cardiovascular: Rate and Rhythm: Normal rate and regular rhythm. Pulmonary: Effort: Pulmonary effort is normal. Breath sounds: Normal breath sounds. Abdominal: General: Abdomen is flat. Palpations: Abdomen is soft. Tenderness: There is abdominal tenderness. Comments: Colostomy present, parastomal hernia Neurological: Mental Status: She is alert. LABS: Recent Labs 05/06/25 0513 05/07/25 0459 05/08/25 0555 WBC 4.97 5.17 5.24 HGB 9.7* 10.2* 10.1* HCT 30.6* 32.0* 31.8* MCV 93.3 92.8 93.8 PLT 283 250 262 RBC 3.28* 3.45* 3.39* Recent Labs 05/07/2545805/08/25 0555 CO2 33.0* 33.0* CL 102 105 GLU 121* 110* K 3.0* 3.3* NA 139 142 BUN 3* 4* Intake/Output Summary (Last 24 hours) at 05/08/2025 1407 Last data filed at 05/08/2025 0049 Gross per 24 hour Intake 994.58 ml Output -- Net 994.58 ml Microbiology Results (last 14 days) Procedure Component Value Units Date/Time Gastric PH [[id number]] Order Status: Sent Lab Status: No result Specimen: GASTRIC FLUID CULTURE URINE [[id number]] Collected: 05/04/25 1013 Order Status: Completed Lab Status: Final result Updated: 05/05/25 1201 Specimen: URINE, CLEAN CATCH SPEC DESCRIPTION URINE CLEAN CATCH SPECIAL REQUESTS NO SPECIAL REQUEST CULTURE RESULT NO GROWTH (< OR = 1,000 CFU/ML) Radiology MEDICATIONS Scheduled medications enoxaparin 40 mg Subcutaneous Nightly (enoxaparin) normal saline 3-10 mL Intravenous Q8H pantoprazole 40 mg Intravenous Daily polyethylene glycol 1 packet Oral Daily Infusion Dextrose 5 % and 0.45 % NaCl with KCl 20 mEq 100 mL/hr at 05/08/25 0908 PRN benzocaine 20 %, tylqvxxmph-wucvehvhxruie-hhvykjzg, glucose, dextrose 10 % bolus, glucagon, hydrALAZINE, influenza, ipratropium-albuterol, ketorolac, LORazepam, morphine, naLOXone, normal saline, ondansetron, saline enema adult Fredis Navarro MD 2:07 PM 05/08/2025 * Danielle Oviedo RN - 05/08/2025 12:09 AM CDT Problem: Reduced risk for falls/injury Goal: Reduced Risk for Falls/Injury Outcome: Progressing Goal: Reduced Risk of Confusion (Acute vs Chronic) Outcome: Progressing Goal: Reduced Risk of Symptomatic Depression Outcome: Progressing Goal: Reduced Risk of Altered Elimination Outcome: Progressing Goal: Reduced Risk of Dizziness/Vertigo/Balance Outcome: Progressing Goal: Reduced Risk of Polypharmacy Outcome: Progressing Problem: Discharge Planning Goal: Knowledge of discharge instructions Outcome: Progressing Problem: Pain control/comfort Goal: Promote pain control/comfort Outcome: Progressing Problem: Skin integrity, Impaired-wound Goal: Absence of new skin breakdown Outcome: Progressing Goal: Evidence of wound healing Outcome: Progressing Problem: Skin integrity, Impaired-pressure injury/ulcer Goal: Absence of new skin breakdown Outcome: Progressing Goal: Evidence of pressure injury/ulcer healing Outcome: Progressing Problem: Skin integrity, at risk Goal: Absence of new skin breakdown Outcome: Progressing Problem: Moisture associated skin impairment Goal: Reduce moisture exposure Outcome: Progressing Goal: Evidence of wound healing Outcome: Progressing Goal: Evidence of pressure injury/ulcer healing Outcome: Progressing Goal: Absence of new skin breakdown Outcome: Progressing Problem: Pain Goal: Patient's pain/discomfort is manageable Description: Assess and monitor patient's pain using appropriate pain scale. Collaborate with interdisciplinary team and initiate plan and interventions as ordered. Re-assess patient's pain level 30 - 60 minutes after pain management intervention. Outcome: Progressing Problem: Safety Goal: Patient will be injury free during hospitalization Description: Assess and monitor vitals signs, neurological status including level of consciousness and orientation. Assess patient's risk for falls and implement fall prevention plan of care and interventions per hospital policy.Ensure arm band on, uncluttered walking paths in room, adequate room li ghting, call light and overbed table within reach, bed in low position, wheels locked, side rails up per policy, and non-skid footwear provided. Outcome: Progressing Problem: Daily Care Goal: Daily care needs are met Description: Assess and monitor ability to perform self care and identify potential discharge needs. Outcome: Progressing Problem: Psychosocial Needs Goal: Demonstrates ability to cope with hospitalization/illness Description: Assess and monitor patients ability to cope with his/her illness. Outcome: Progressing Goal: Collaborate with patient/family/caregiver to identify patient specific goals for this hospitalization Outcome: Progressing Problem: Discharge Barriers Goal: Patient's discharge needs are met Description: Collaborate with interdisciplinary team and initiate plans and interventions as needed. Outcome: Progressing Problem: Pain - Acute Goal: Achieve acceptable pain level Outcome: Progressing * Fredis Navarro MD - 05/07/2025 10:43 AM CDT Images from the original note were not included. Progress note CC:-Abdominal pain ASSESSMENT /PLAN Leila Adorno is a 70-year-old female with PMH of bowel obstruction s/p sigmoid colectomy andend colostomy (2019), recurrent partial bowel obstruction, HTN, CAD, COPD on 3 L supplemental oxygen, anxiety, depression, RLS, hypothyroidism, and chronic anemia, presented to ED via EMS with progressively worsening left lower quadrant abdominal pain and decreased colostomy output. CT abdomen/pelvis with interval progression of multifocal abdominal wall hernias, with 1 ventral abdominal hernia containing new loop of small bowel with no evidence of high-grade obstruction. [facility] General Surgery was consulted from the ED. Hospitalist contacted for admission. In ED, patient received 1 L bolus NS, 4 mg IV Zofran, 4 mg IV morphine, 0.5 mg IV hydromorphone, and contrast for CT. 1. Recurrent partial small bowel obstruction, partially reducible parastomal hernia - [facility] General Surgery on consult, appreciate recommendations - Surgical intervention deferred to surgery. - Noted clearance for starting clear liquid diet and p.o. bowel regimen. No acute surgical intervention required at this time. Lactic acid within normal range. - Continue with IV morphine 4 mg every 3 hours as needed. Added IV Toradol as needed monitor renal function. - VS every 4 hours 2. Advanced COPD, chronic hypoxic respiratory failure - 3L home oxygen at baseline, continue oxygen as needed to maintain SpO2 88-92% - DuoNebs as needed 3. HTN, anxiety, RLS, hypothyroidism, chronic microcytic anemia - Chronic, stable, add complexity to case - Added IV Ativan and IV hydralazine as needed given n.p.o. status - Resume home meds as able SUBJECTIVE Patient seen and examined. Continued complain of severe pain. Also reports being nauseated. Colostomy bag empty OBJECTIVE Wt Readings from Last 3 Encounters: 05/04/25 60.9 kg (134 lb 4.2 oz) 12/03/24 57.2 kg (126 lb) 10/27/24 56.2 kg (124 lb) Temp: 98.2 ??F (36.8 ??C) BP Readings from Last 3 Encounters: 05/07/25 (!) 159/91 12/04/24 (!) 151/86 10/27/24 99/70 Pulse Readings from Last 3 Encounters: 05/07/25 (!) 113 12/03/24 85 10/27/24 69 Review of Systems Gastrointestinal: Positive for abdominal pain and nausea. All other systems reviewed and are negative. PHYSICAL EXAMINATION: Physical Exam Constitutional: Appearance: Normal appearance. HENT: Head: Normocephalic and atraumatic. Right Ear: External ear normal. Left Ear: External ear normal. Mouth/Throat: Mouth: Mucous membranes are moist. Eyes: Extraocular Movements: Extraocular movements intact. Cardiovascular: Rate and Rhythm: Normal rate and regular rhythm. Pulmonary: Effort: Pulmonary effort is normal. Breath sounds: Normal breath sounds. Abdominal: General: Abdomen is flat. Palpations: Abdomen is soft. Tenderness: There is abdominal tenderness. Comments: Colostomy present, parastomal hernia Neurological: Mental Status: She is alert. LABS: Recent Labs 05/05/25 0512 05/06/25 0513 05/07/25 0459 WBC 4.42 4.97 5.17 HGB 10.6* 9.7* 10.2* HCT 33.3* 30.6* 32.0* MCV 94.6 93.3 92.8 PLT 267 283 250 RBC 3.52* 3.28* 3.45* Recent Labs 05/05/25 0512 05/07/25 0459 CO2 31.4 33.0* CL 102 102 GLU 97 121* K 3.4* 3.0* NA 140 139 BUN 5* 3* Intake/Output Summary (Last 24 hours) at 05/07/2025 1043 Last data filed at 05/07/2025 0201 Gross per 24 hour Intake 0 ml Output 300 ml Net -300 ml Microbiology Results (last 14 days) Procedure Component Value Units Date/Time Gastric PH [[id number]] Order Status: Sent Lab Status: No result Specimen: GASTRIC FLUID CULTURE URINE [[id number]] Collected: 05/04/25 1013 Order Status: Completed Lab Status: Final result Updated: 05/05/25 1201 Specimen: URINE, CLEAN CATCH SPEC DESCRIPTION URINE CLEAN CATCH SPECIAL REQUESTS NO SPECIAL REQUEST CULTURE RESULT NO GROWTH (< OR = 1,000 CFU/ML) Radiology MEDICATIONS Scheduled medications enoxaparin 40 mg Subcutaneous Nightly (enoxaparin) normal saline 3-10 mL Intravenous Q8H pantoprazole 40 mg Intravenous Daily potassium chloride 40 mEq Intravenous Once Infusion dextrose 5% lactated ringers 100 mL/hr at 05/07/25 0541 PRN benzocaine 20 %, teigmtxfbr-eyoudjnvlpikg-czkuhnnx, glucose, dextrose 10 % bolus, glucagon, hydrALAZINE, influenza, ipratropium-albuterol, ketorolac, LORazepam, morphine, naLOXone, normal saline, ondansetron, saline enema adult Fredis Navarro MD 10:43 AM 05/07/2025 * Ministerio Cabrales RN - 05/06/2025 10:00 PM CDT Problem: Reduced risk for falls/injury Goal: Reduced Risk for Falls/Injury Outcome: Progressing Problem: Pain control/comfort Goal: Promote pain control/comfort Outcome: Progressing Problem: Skin integrity, Impaired-wound Goal: Absence of new skin breakdown Outcome: Progressing Problem: Skin integrity, Impaired-pressure injury/ulcer Goal: Absence of new skin breakdown Outcome: Progressing Problem: Safety Goal: Patient will be injury free during hospitalization Description: Assess and monitor vitals signs, neurological status including level of consciousness and orientation. Assess patient's risk for falls and implement fall prevention plan of care and interventions per hospital policy.Ensure arm band on, uncluttered walking paths in room, adequate room li ghting, call light and overbed table within reach, bed in low position, wheels locked, side rails up per policy, and non-skid footwear provided. Outcome: Progressing Problem: Daily Care Goal: Daily care needs are met Description: Assess and monitor ability to perform self care and identify potential discharge needs. Outcome: Progressing Problem: Psychosocial Needs Goal: Demonstrates ability to cope with hospitalization/illness Description: Assess and monitor patients ability to cope with his/her illness. Outcome: Progressing Problem: Pain - Acute Goal: Achieve acceptable pain level Outcome: Progressing * Fredis Navarro MD - 05/06/2025 2:59 PM CDT Images from the original note were not included. Progress note CC:-Abdominal pain ASSESSMENT /PLAN Leila Adorno is a 70-year-old female with PMH of bowel obstruction s/p sigmoid colectomy andend colostomy (2019), recurrent partial bowel obstruction, HTN, CAD, COPD on 3 L supplemental oxygen, anxiety, depression, RLS, hypothyroidism, and chronic anemia, presented to ED via EMS with progressively worsening left lower quadrant abdominal pain and decreased colostomy output. CT abdomen/pelvis with interval progression of multifocal abdominal wall hernias, with 1 ventral abdominal hernia containing new loop of small bowel with no evidence of high-grade obstruction. [facility] General Surgery was consulted from the ED. Hospitalist contacted for admission. In ED, patient received 1 L bolus NS, 4 mg IV Zofran, 4 mg IV morphine, 0.5 mg IV hydromorphone, and contrast for CT. 1. Recurrent partial small bowel obstruction, irreducible hernia - NPO, IV fluids, pain control, antiemetic - [facility] General Surgery on consult, appreciate recommendations --recommending NG to LIS - VS every 4 hours 2. Advanced COPD, chronic hypoxic respiratory failure - 3L home oxygen at baseline, continue oxygen as needed to maintain SpO2 88-92% - DuoNebs as needed 3. HTN, anxiety, RLS, hypothyroidism, chronic microcytic anemia - Chronic, stable, add complexity to case - Added IV Ativan and IV hydralazine as needed given n.p.o. status - Resume home meds as able SUBJECTIVE Patient seen and examined. Continues to complain of abdominal pain. Self removed NG tube overnight.Also has headache denies any blurry vision. Intermittent numbness of the right side of the face OBJECTIVE Wt Readings from Last 3 Encounters: 05/04/25 60.9 kg (134 lb 4.2 oz) 12/03/24 57.2 kg (126 lb) 10/27/24 56.2 kg (124 lb) Temp: 98.6 ??F (37 ??C) BP Readings from Last 3 Encounters: 05/06/25 (!) 172/90 12/04/24 (!) 151/86 10/27/24 99/70 Pulse Readings from Last 3 Encounters: 05/06/25 79 12/03/24 85 10/27/24 69 Review of Systems Gastrointestinal: Positive for abdominal pain and nausea. All other systems reviewed and are negative. PHYSICAL EXAMINATION: Physical Exam Constitutional: Appearance: Normal appearance. HENT: Head: Normocephalic and atraumatic. Right Ear: External ear normal. Left Ear: External ear normal. Mouth/Throat: Mouth: Mucous membranes are moist. Eyes: Extraocular Movements: Extraocular movements intact. Cardiovascular: Rate and Rhythm: Normal rate and regular rhythm. Pulmonary: Effort: Pulmonary effort is normal. Breath sounds: Normal breath sounds. Abdominal: General: Abdomen is flat. Palpations: Abdomen is soft. Tenderness: There is abdominal tenderness. Comments: Colostomy present, parastomal hernia Neurological: Mental Status: She is alert. LABS: Recent Labs 05/04/25 1013 05/05/25 0512 05/06/25 0513 WBC 6.24 4.42 4.97 HGB 11.1* 10.6* 9.7* HCT 34.6* 33.3* 30.6* MCV 92.3 94.6 93.3 PLT 293 267 283 RBC 3.75* 3.52* 3.28* Recent Labs 05/04/25 1013 05/05/25 0512 ALT 20 -- AST 20 -- CO2 31.6 31.4 CL 100 102 GLU 104 97 K 3.6 3.4* NA 137 140 BUN 9 5* Intake/Output Summary (Last 24 hours) at 05/06/2025 1459 Last data filed at 05/06/2025 0810 Gross per 24 hour Intake 3765 ml Output -- Net 3765 ml Microbiology Results (last 14 days) Procedure Component Value Units Date/Time Gastric PH [[id number]] Order Status: Sent Lab Status: No result Specimen: GASTRIC FLUID CULTURE URINE [[id number]] Collected: 05/04/25 1013 Order Status: Completed Lab Status: Final result Updated: 05/05/25 1201 Specimen: URINE, CLEAN CATCH SPEC DESCRIPTION URINE CLEAN CATCH SPECIAL REQUESTS NO SPECIAL REQUEST CULTURE RESULT NO GROWTH (< OR = 1,000 CFU/ML) Radiology MEDICATIONS Scheduled medications enoxaparin 40 mg Subcutaneous Nightly (enoxaparin) ketorolac 15 mg Intravenous Once normal saline 3-10 mL Intravenous Q8H Infusion dextrose 5% lactated ringers 100 mL/hr at 05/06/25 0805 PRN benzocaine 20 %, mwxdbzujgn-qdelehlbykkiz-tcrfothm, glucose, dextrose 10 % bolus, glucagon, hydrALAZINE, influenza, ipratropium-albuterol, LORazepam, morphine, naLOXone, normal saline, ondansetron, saline enema adult Fredis Navarro MD 2:59 PM 05/06/2025 * Biju Conrad RN - 05/06/2025 9:20 AM CDT 05/06/25919 Interdisciplinary Group Conference Team Members Present Physician;Case/Care management;Nursing Physician present for group conference Melanie Patient Current Status Paient current status Inpatient Barriers to Discharge Inpatient Review Barriers to Discharge Inpatient No Barrier- Medical Milestone in Process (on IVF, gasatrograffin enema) Type of Consult Delay Surgery Patient expects to be discharged to Patient expects to be discharged to: Home or Self care no new needs Discharge needs Insurance Authorization needed No Does the patient need discharge transport arranged? Yes Has discharge transport been arranged? No IV Infusion at discharge No DME Needed at Discharge No 0721 met with patient no new needs * Oliver Rodriguez MD - 05/06/2025 8:14 AM CDTSummary: [facility] Progress Note [facility] Surgery Progress Note ID: Leila Adorno is a 70-year-old female : 1955 LOS: 2 ASSESSMENT & PLAN: Leila Adorno is a 70-year-old female with with past medical history significant for sigmoidectomy with end-colostomy ([address] Estrada) who presents for increased abdominal pain and elevatedblood pressure despite medication for the past few days. Labs are unremarkable with no evidence of leukocytosis. CT scan independently reviewed and demonstrated a parastomal hernia containing subcutaneous fat andbowel through a roughly 51 mm defect. An epigastric ventral hernia containing subcutaneous fat and bowel is also seen through an approximately 21 mm defect. No evidence of high-grade bowel obstruction. Fecalization noted in small bowel. 2019 - sigmoidectomy w/ end-colostomy #partially reducible parastomal hernia #recurrent partial small bowel obstruction #partially reducible epigastric ventral hernia - AF, HDS on 3LNC - recommend MMPR - serial abdominal exams - NGT placed yesterday, pulled out overnight. Will consider red rubber with enemas through stoma. - continue IVF - ok for DVT ppx - no acute surgical intervention required at this time - will consider GGC in the coming days - rest of care per primary #COPD #HTN #CAD #anxiety - recommend resuming home meds as able - rest of care per primary Staff: Dr. Rodriguez ======= ATTENDING ATTESTATION ====== I have personally seen and evaluated the patient and reviewed the subjective, objective, laboratory, and radiographic information contained in the chart. I agree with the assessment and plan as documented by the resident except for those items noted below. Red rubber placed by residents. No operative plans. If no n/v, okay to attempts clears if her NGT is out (either by order or accident). See comments from yesterday for additional details and explanations. Seen at: 2024 on 05/05 Oliver Rodriguez MD [facility] General Surgery SUBJECTIVE: NAEON. Ms. Adorno states she is still having some abdominal pain. Reports passing gas through the stoma, low stool output. She reports not remembering how the NG tube came out, doesn't recall pulling it out. OBJECTIVE: Medications: Current Facility-Administered Medications: benzocaine 20 % (HURRICAINE) mouth solution 1 spray, 1 spray, Mouth/Throat, 4x Daily PRN, Fredis Granados MD dzamycmqib-lfiwvefhysdea-xfzrloyz (ESGIC) tablet 1 tablet, 1 tablet, Tube, Q6H PRN, Fredis Navarro MD dextrose (GLUTOSE) 40 % oral gel 37.5-75 g, 15-30 g of dextrose, Oral, PRN, Fredis Navarro MD dextrose 10 % bolus infusion 125-250 mL, 125-250 mL, Intravenous, PRN, Fredis Navarro MD, Stopped at 05/05/252002 dextrose 5 % lactated ringers infusion, , Intravenous, Continuous, Adali Trinidad MD, Last Rate: 100 mL/hr at 05/06/25804, New Bag at 05/06/25804 enoxaparin (LOVENOX) 40 MG/0.4ML syringe 40 mg, 40 mg, Subcutaneous, Nightly (enoxaparin), 40 mg at09/18/25 2008 AND [COMPLETED] Moderate Risk for VTE, , , Once, Girish Dodson NP glucagon injection 1 mg, 1 mg, Intramuscular, Once PRN, Fredis Navarro MD hydrALAZINE (APRESOLINE) injection 10 mg, 10 mg, Intravenous, Q6H PRN, Fredis Navarro MD, 10 mg at 05/05/25 2216 influenza vaccine (FLUZONE) injection 0.5 mL, 0.5 mL, Intramuscular, Prior to discharge, Fredis Navarro MD ipratropium-albuterol (DUONEB) 0.5-2.5 (3) MG/3ML nebulizer solution 3 mL, 3 mL, Nebulization, Q6H PRN, Girish Dodson NP LORazepam (ATIVAN) injection 0.5 mg, 0.5 mg, Intravenous, Q4H PRN, Girish Dodson NP, 0.5 mg at 05/06/25 0625 morphine injection 4 mg, 4 mg, Intravenous, Q4H PRN, Fredis Navarro MD, 4 mg at 05/06/25 0626 naLOXone (NARCAN) injection 0.4 mg, 0.4 mg, Intravenous, PRN, Girish Dodson NP normal saline 0.9 % flush 3-10 mL, 3-10 mL, Intravenous, Q8H, Lucero Russ MD, 10 mL at 05/06/25 0300 normal saline 0.9 % flush 3-10 mL, 3-10 mL, Intravenous, PRN, Lucero Russ MD ondansetron (ZOFRAN) injection 4 mg, 4 mg, Intravenous, Q8H PRN, Girish Dodson NP Scheduled Meds: enoxaparin 40 mg Subcutaneous Nightly (enoxaparin) normal saline 3-10 mL Intravenous Q8H Continuous Infusions: dextrose 5% lactated ringers 100 mL/hr at 05/06/25 0805 PRN Meds: benzocaine 20 %, dsktxwsfxf-cgwcyzwfscxnk-spogkbhb, glucose, dextrose 10 % bolus, glucagon, hydrALAZINE, influenza, ipratropium-albuterol, LORazepam, morphine, naLOXone, normal saline, ondansetron Intake/Output last 3 shifts: I/O last 3 completed shifts: In: 250 [I.V.:250] Out: - Vital signs in the last 24 hours: Vitals: 05/06/25 0742 BP: (!) 172/90 Pulse: 79 Resp: Temp: 98.6 ??F (37 ??C) SpO2: 96% Physical Exam: Vital signs: Temp: [98.2 ??F (36.8 ??C)-98.6 ??F (37 ??C)] 98.6 ??F (37 ??C) Pulse: [79-92] 79 Resp: [16-18] 18 BP: (154-173)/(78-126) 172/90 GEN: Adult female sleeping comfortably in hospital bed, in moderate acute distress. MENTAL STATUS: Alert, cooperative. HEENT: Normocephalic, atraumatic. EOMI. NECK: Trachea midline. No JVD noted. CV: Regular rate, no tachycardia. Adequate peripheral perfusion. RESP: Airway grossly patent. No increased respiratory effort. Chest rise equal bilaterally. ABDOMEN: parastomal hernia and epigastric ventral hernia showing small bulges. Abdomen otherwise, soft, non-distended, appropriately tender. Stoma remains pink and viable with gas and minimal amount of stool present in ostomy bag. MSK: No joint swelling or erythema noted. Moves all 4 extremities. NEURO: AAOx3. CN II-XII grossly intact. SKIN: No rash or skin lesion noted. PSYCH: Cooperative, pleasant. Appropriate mood and affect. Diagnostic data: Recent Labs 05/04/25 1013 05/05/25 0512 05/06/25 0513 WBC 6.24 4.42 4.97 HGB 11.1* 10.6* 9.7* HCT 34.6* 33.3* 30.6* MCV 92.3 94.6 93.3 PLT 293 267 283 RBC 3.75* 3.52* 3.28* Recent Labs Lab 05/04/25 1013 05/05/25 0512 NA 137 140 K 3.6 3.4* CL 100 102 CO2 31.6 31.4 AGAP 5.4 6.6 BUN 9 5* CR 0.68 0.45* GLU 104 97 CA 9.3 9.1 TP 7.3 -- ALB 4.1 -- TBIL 0.3 -- ALKP 56 -- AST 20 -- ALT 20 -- No results for input(s): INR in the last 168 hours. * Kell Jacinto RN - 05/06/2025 3:05 AM CDT Problem: Reduced risk for falls/injury Goal: Reduced Risk for Falls/Injury Outcome: Progressing Goal: Reduced Risk of Confusion (Acute vs Chronic) Outcome: Progressing Goal: Reduced Risk of Symptomatic Depression Outcome: Progressing Goal: Reduced Risk of Altered Elimination Outcome: Progressing Goal: Reduced Risk of Dizziness/Vertigo/Balance Outcome: Progressing Goal: Reduced Risk of Polypharmacy Outcome: Progressing Problem: Discharge Planning Goal: Knowledge of discharge instructions Outcome: Progressing Problem: Pain control/comfort Goal: Promote pain control/comfort Outcome: Progressing Problem: Skin integrity, Impaired-wound Goal: Absence of new skin breakdown Outcome: Progressing Goal: Evidence of wound healing Outcome: Progressing Problem: Skin integrity, Impaired-pressure injury/ulcer Goal: Absence of new skin breakdown Outcome: Progressing Goal: Evidence of pressure injury/ulcer healing Outcome: Progressing Problem: Skin integrity, at risk Goal: Absence of new skin breakdown Outcome: Progressing Problem: Moisture associated skin impairment Goal: Reduce moisture exposure Outcome: Progressing Goal: Evidence of wound healing Outcome: Progressing Goal: Evidence of pressure injury/ulcer healing Outcome: Progressing Goal: Absence of new skin breakdown Outcome: Progressing Problem: Pain Goal: Patient's pain/discomfort is manageable Description: Assess and monitor patient's pain using appropriate pain scale. Collaborate with interdisciplinary team and initiate plan and interventions as ordered. Re-assess patient's pain level 30 - 60 minutes after pain management intervention. Outcome: Progressing Problem: Safety Goal: Patient will be injury free during hospitalization Description: Assess and monitor vitals signs, neurological status including level of consciousness and orientation. Assess patient's risk for falls and implement fall prevention plan of care and interventions per hospital policy.Ensure arm band on, uncluttered walking paths in room, adequate room li ghting, call light and overbed table within reach, bed in low position, wheels locked, side rails up per policy, and non-skid footwear provided. Outcome: Progressing Problem: Daily Care Goal: Daily care needs are met Description: Assess and monitor ability to perform self care and identify potential discharge needs. Outcome: Progressing Problem: Psychosocial Needs Goal: Demonstrates ability to cope with hospitalization/illness Description: Assess and monitor patients ability to cope with his/her illness. Outcome: Progressing Goal: Collaborate with patient/family/caregiver to identify patient specific goals for this hospitalization Outcome: Progressing Problem: Discharge Barriers Goal: Patient's discharge needs are met Description: Collaborate with interdisciplinary team and initiate plans and interventions as needed. Outcome: Progressing * Fredis Navarro MD - 05/05/2025 1:46 PM CDT Images from the original note were not included. Progress note CC:-Abdominal pain ASSESSMENT /PLAN Leila Adorno is a 70-year-old female with PMH of bowel obstruction s/p sigmoid colectomy andend colostomy (2019), recurrent partial bowel obstruction, HTN, CAD, COPD on 3 L supplemental oxygen, anxiety, depression, RLS, hypothyroidism, and chronic anemia, presented to ED via EMS with progressively worsening left lower quadrant abdominal pain and decreased colostomy output. CT abdomen/pelvis with interval progression of multifocal abdominal wall hernias, with 1 ventral abdominal hernia containing new loop of small bowel with no evidence of high-grade obstruction. [facility] General Surgery was consulted from the ED. Hospitalist contacted for admission. In ED, patient received 1 L bolus NS, 4 mg IV Zofran, 4 mg IV morphine, 0.5 mg IV hydromorphone, and contrast for CT. 1. Recurrent partial small bowel obstruction, irreducible hernia - NPO, IV fluids, pain control, antiemetic - [facility] General Surgery on consult, appreciate recommendations --recommending NG to LIS - VS every 4 hours 2. Advanced COPD, chronic hypoxic respiratory failure - 3L home oxygen at baseline, continue oxygen as needed to maintain SpO2 88-92% - DuoNebs as needed 3. HTN, anxiety, RLS, hypothyroidism, chronic microcytic anemia - Chronic, stable, add complexity to case - Added IV Ativan and IV hydralazine as needed given n.p.o. status - Resume home meds as able SUBJECTIVE Patient seen and examined. Continues to complain of abdominal pain. States she is nauseated. Has not vomited. Colostomy bag with mostly empty. OBJECTIVE Wt Readings from Last 3 Encounters: 05/04/25 60.9 kg (134 lb 4.2 oz) 12/03/24 57.2 kg (126 lb) 10/27/24 56.2 kg (124 lb) Temp: 98.4 ??F (36.9 ??C) BP Readings from Last 3 Encounters: 05/05/25 (!) 168/93 12/04/24 (!) 151/86 10/27/24 99/70 Pulse Readings from Last 3 Encounters: 05/04/25 85 12/03/24 85 10/27/24 69 Review of Systems Gastrointestinal: Positive for abdominal pain and nausea. All other systems reviewed and are negative. PHYSICAL EXAMINATION: Physical Exam Constitutional: Appearance: Normal appearance. HENT: Head: Normocephalic and atraumatic. Right Ear: External ear normal. Left Ear: External ear normal. Mouth/Throat: Mouth: Mucous membranes are moist. Eyes: Extraocular Movements: Extraocular movements intact. Cardiovascular: Rate and Rhythm: Normal rate and regular rhythm. Pulmonary: Effort: Pulmonary effort is normal. Breath sounds: Normal breath sounds. Abdominal: General: Abdomen is flat. Palpations: Abdomen is soft. Tenderness: There is abdominal tenderness. Comments: Colostomy present, parastomal hernia Neurological: Mental Status: She is alert. LABS: Recent Labs 05/04/25 1013 05/05/25 0512 WBC 6.24 4.42 HGB 11.1* 10.6* HCT 34.6* 33.3* MCV 92.3 94.6 PLT 293 267 RBC 3.75* 3.52* Recent Labs 05/04/25 1013 05/05/25 0512 ALT 20 -- AST 20 -- CO2 31.6 31.4 CL 100 102 GLU 104 97 K 3.6 3.4* NA 137 140 BUN 9 5* No intake or output data in the 24 hours ending 05/05/25 1346 Microbiology Results (last 14 days) Procedure Component Value Units Date/Time Gastric PH [[id number]] Order Status: Sent Lab Status: No result Specimen: GASTRIC FLUID CULTURE URINE [[id number]] Collected: 05/04/25 1013 Order Status: Completed Lab Status: Final result Updated: 05/05/25 1201 Specimen: URINE, CLEAN CATCH SPEC DESCRIPTION URINE CLEAN CATCH SPECIAL REQUESTS NO SPECIAL REQUEST CULTURE RESULT NO GROWTH (< OR = 1,000 CFU/ML) Radiology MEDICATIONS Scheduled medications enoxaparin 40 mg Subcutaneous Nightly (enoxaparin) normal saline 3-10 mL Intravenous Q8H Infusion sodium chloride 100 mL/hr at 05/05/25 1341 PRN benzocaine 20 %, gsqgtbmvfg-lqzbjjcrctlue-qzyzvrlc, hydrALAZINE, influenza, ipratropium-albuterol, LORazepam, morphine, naLOXone, normal saline, ondansetron Fredis Navarro MD 1:46 PM 05/05/2025 * Joseline Rivera RN - 05/05/2025 11:28 AM CDT 05/05/25 1126 Interdisciplinary Group Conference Team Members Present Case/Care management;Nursing;Physician Physician present for group conference Patient Current Status Paient current status Inpatient Barriers to Discharge Inpatient Review Barriers to Discharge Inpatient No Barrier- Medical Milestone in Process (Surgery following,currently no surgery planned. NPO,IV.) Patient expects to be discharged to Patient expects to be discharged to: Home or Self care no new needs Discharge needs Insurance Authorization needed No Does the patient need discharge transport arranged? No IV Infusion at discharge No DME Needed at Discharge No * Oliver Rodriguez MD - 05/05/2025 10:25 AM CDTSummilagrosy: [facility] Progress Note [facility] Surgery Progress Note ID: Leila Adorno is a 70-year-old female : 1955 LOS: 1 ASSESSMENT & PLAN: Leila Adorno is a 70-year-old female with with past medical history significant for sigmoidectomy with end-colostomy ([address] Estrada) who presents for increased abdominal pain and elevatedblood pressure despite medication for the past few days. Labs are unremarkable with no evidence of leukocytosis. CT scan independently reviewed and demonstrated a parastomal hernia containing subcutaneous fat andbowel through a roughly 51 mm defect. An epigastric ventral hernia containing subcutaneous fat and bowel is also seen through an approximately 21 mm defect. No evidence of high-grade bowel obstruction. Fecalization noted in small bowel. 2019 - sigmoidectomy w/ end-colostomy #partially reducible parastomal hernia #recurrent partial small bowel obstruction #partially reducible epigastric ventral hernia - AF, HDS on 3LNC - recommend MMPR - recommend starting bowel regimen - serial abdominal exams - patient refused NGT yesterday; strongly recommend NGT; continue NPO - continue IVF - ok for DVT ppx - no acute surgical intervention required at this time - will consider GG challenge in the coming days - rest of care per primary #COPD #HTN #CAD #anxiety - recommend resuming home meds as able - rest of care per primary Staff: Dr. Rodriguez ======= ATTENDING ATTESTATION ====== I have personally seen and evaluated the patient and reviewed the subjective, objective, laboratory, and radiographic information contained in the chart. I agree with the assessment and plan as documented by the resident except for those items noted below. NGT in and out. Hernias soft. Gas and stool in appliance. Tortuous colostomy. No plans for surgicalintervention during hospitalization unless convincing evidence of obstruction. Would do gastrograffin challenge if patient would keep NGT in. I doubt the patent's discomfort will be satisfactorally managed at discharge, but that is not an indication for urgent repair of reducible hernias. The complexity and high recurrence risk of combined ventral and parastomal hernia is best served with carefuloutpatient planning and presentation of the case at the advanced hernia center meeting. Seen at: 1131 on 05/05 Oliver Rodriguez MD [facility] General Surgery SUBJECTIVE: NAEON. Ms. Adorno states she is not doing too good this morning. She reports continued abdominal pain. Reports passing flatus through ostomy but no stool. OBJECTIVE: Medications: Current Facility-Administered Medications: benzocaine 20 % (HURRICAINE) mouth solution 1 spray, 1 spray, Mouth/Throat, 4x Daily PRN, Fredis Granados MD pvftpulubk-qzkmckwabawvl-bscxikgr (ESGIC) tablet 1 tablet, 1 tablet, Oral, Q6H PRN, Fredis Navarro MD, 1 tablet at 05/05/25 0846 enoxaparin (LOVENOX) 40 MG/0.4ML syringe 40 mg, 40 mg, Subcutaneous, Nightly (enoxaparin), 40 mg at05/04/255 AND [COMPLETED] Moderate Risk for VTE, , , Once, Girish Dodson NP hydrALAZINE (APRESOLINE) injection 5 mg, 5 mg, Intravenous, Q6H PRN, Girish Dodson NP influenza vaccine (FLUZONE) injection 0.5 mL, 0.5 mL, Intramuscular, Prior to discharge, Fredis Navarro MD ipratropium-albuterol (DUONEB) 0.5-2.5 (3) MG/3ML nebulizer solution 3 mL, 3 mL, Nebulization, Q6H PRN, Girish Dodson NP LORazepam (ATIVAN) injection 0.5 mg, 0.5 mg, Intravenous, Q4H PRN, Girish Dodson NP, 0.5 mg at 05/05/25 0432 morphine injection 4 mg, 4 mg, Intravenous, Q4H PRN, Fredis Navarro MD, 4 mg at 05/05/25 0947 naLOXone (NARCAN) injection 0.4 mg, 0.4 mg, Intravenous, PRN, Girish Dodson NP normal saline 0.9 % flush 3-10 mL, 3-10 mL, Intravenous, Q8H, Lucero Russ MD, 10 mL at 05/05/25 0848 normal saline 0.9 % flush 3-10 mL, 3-10 mL, Intravenous, PRN, Lucero Russ MD ondansetron (ZOFRAN) injection 4 mg, 4 mg, Intravenous, Q8H PRN, Girish Dodson NP potassium chloride 40 mEq in NS 500 mL IVPB, 40 mEq, Intravenous, Once, Fredis Navarro MD, Last Rate: 125 mL/hr at 05/05/25 0847, 40 mEq at 05/05/25 0847 sodium chloride 0.9% infusion, , Intravenous, Continuous, Girish Dodson NP, Last Rate: 100 mL/hrat 05/05/257, New Bag at 05/05/257 Scheduled Meds: enoxaparin 40 mg Subcutaneous Nightly (enoxaparin) normal saline 3-10 mL Intravenous Q8H potassium chloride 40 mEq Intravenous Once Continuous Infusions: sodium chloride 100 mL/hr at 05/05/25 0008 PRN Meds: benzocaine 20 %, ibghuokyju-maniltrglngpl-fkfzndto, hydrALAZINE, influenza, ipratropium-albuterol, LORazepam, morphine, naLOXone, normal saline, ondansetron Intake/Output last 3 shifts: No intake/output data recorded. Vital signs in the last 24 hours: Vitals: 05/05/25 0700 BP: (!) 168/93 Pulse: Resp: 18 Temp: SpO2: Physical Exam: Vital signs: Temp: [98.4 ??F (36.9 ??C)] 98.4 ??F (36.9 ??C) Pulse: [68-85] 85 Resp: [16-20] 18 BP: (156-178)/(75-101) 168/93 GEN: Adult female sleeping in hospital bed, in moderate acute distress. MENTAL STATUS: Alert, cooperative. HEENT: Normocephalic, atraumatic. EOMI. NECK: Trachea midline. No JVD noted. CV: Regular rate, no tachycardia. Adequate peripheral perfusion. RESP: Airway grossly patent. No increased respiratory effort. Chest rise equal bilaterally. ABDOMEN: parastomal hernia and epigastric ventral hernia smaller on appearance compared to yesterday, remains partially reducible. Abdomen otherwise, soft, appropriately tender. Stoma remains pink and viable with gas and small amount of stool present in ostomy bag. MSK: No joint swelling or erythema noted. NEURO: AAOx3. Grossly intact. Moves all 4 extremities. SKIN: No rash or skin lesion noted. PSYCH: Cooperative. Appropriate mood and affect. Diagnostic data: Recent Labs 05/04/25 1013 05/05/25 0512 WBC 6.24 4.42 HGB 11.1* 10.6* HCT 34.6* 33.3* MCV 92.3 94.6 PLT 293 267 RBC 3.75* 3.52* Recent Labs Lab 05/04/25 1013 05/05/25 0512 NA 137 140 K 3.6 3.4* CL 100 102 CO2 31.6 31.4 AGAP 5.4 6.6 BUN 9 5* CR 0.68 0.45* GLU 104 97 CA 9.3 9.1 TP 7.3 -- ALB 4.1 -- TBIL 0.3 -- ALKP 56 -- AST 20 -- ALT 20 -- No results for input(s): INR in the last 168 hours. * Kell Jacinto RN - 05/05/2025 2:56 AM CDT Problem: Reduced risk for falls/injury Goal: Reduced Risk for Falls/Injury Outcome: Progressing Goal: Reduced Risk of Confusion (Acute vs Chronic) Outcome: Progressing Goal: Reduced Risk of Symptomatic Depression Outcome: Progressing Goal: Reduced Risk of Altered Elimination Outcome: Progressing Goal: Reduced Risk of Dizziness/Vertigo/Balance Outcome: Progressing Goal: Reduced Risk of Polypharmacy Outcome: Progressing Problem: Discharge Planning Goal: Knowledge of discharge instructions Outcome: Progressing Problem: Pain control/comfort Goal: Promote pain control/comfort Outcome: Progressing Problem: Skin integrity, Impaired-wound Goal: Absence of new skin breakdown Outcome: Progressing Goal: Evidence of wound healing Outcome: Progressing Problem: Skin integrity, Impaired-pressure injury/ulcer Goal: Absence of new skin breakdown Outcome: Progressing Goal: Evidence of pressure injury/ulcer healing Outcome: Progressing Problem: Skin integrity, at risk Goal: Absence of new skin breakdown Outcome: Progressing Problem: Moisture associated skin impairment Goal: Reduce moisture exposure Outcome: Progressing Goal: Evidence of wound healing Outcome: Progressing Goal: Evidence of pressure injury/ulcer healing Outcome: Progressing Goal: Absence of new skin breakdown Outcome: Progressing Problem: Pain Goal: Patient's pain/discomfort is manageable Description: Assess and monitor patient's pain using appropriate pain scale. Collaborate with interdisciplinary team and initiate plan and interventions as ordered. Re-assess patient's pain level 30 - 60 minutes after pain management intervention. Outcome: Progressing Problem: Safety Goal: Patient will be injury free during hospitalization Description: Assess and monitor vitals signs, neurological status including level of consciousness and orientation. Assess patient's risk for falls and implement fall prevention plan of care and interventions per hospital policy.Ensure arm band on, uncluttered walking paths in room, adequate room li ghting, call light and overbed table within reach, bed in low position, wheels locked, side rails up per policy, and non-skid footwear provided. Outcome: Progressing Problem: Daily Care Goal: Daily care needs are met Description: Assess and monitor ability to perform self care and identify potential discharge needs. Outcome: Progressing Problem: Psychosocial Needs Goal: Demonstrates ability to cope with hospitalization/illness Description: Assess and monitor patients ability to cope with his/her illness. Outcome: Progressing Goal: Collaborate with patient/family/caregiver to identify patient specific goals for this hospitalization Outcome: Progressing Problem: Discharge Barriers Goal: Patient's discharge needs are met Description: Collaborate with interdisciplinary team and initiate plans and interventions as needed. Outcome: Progressing * Lucero Zamudio RN - 05/04/2025 7:54 PM CDT Remote CM spoke with patient over the phone and explained scope of case management services. Patient lives with her son and his girlfriend at their home in [place] [facility]. [facility] has a colostomy, and uses a four wheel walker. She states that she's homebound, mostly staying in her bedroom due to ambulatory issues, and requires assistance with bathing and meals. Patient states that this is the third hospital admission this month for the same concerns and she has become increasingly weaker. She was to begin outpatient PT at [facility] tomorrow, but is asking that home health nursing and PT be considered for discharge due to being homebound and having increasing ambulatory concerns. She has used [facility] in the past and would again appreciate their services. Confirmed PCP and preferred pharmacy. Patient denies SDOH concerns. CM team will assist with discharge planning as needed based on care team recommendations, treatment plan, and patient preferences. DC Plan: Anticipate home with home health, pending evaluation and recommendations Transportation: Patient will need transportation assistance as son and girlfriend are working/unavailable PCP: Rowdy Sandra DO Pharmacy: [facility] in [place] [facility] Readmission risk score: 05/04/25 1934 Asssesment Completed Type of Case Management assessment completed Adult Referral Data Source of Information Patient Patient Information Primary Caregiver Self;Family (Son cooks meals, has assistance with bathing for safety) Current living Situation Family members (Lives with son and his girlfriend) Type of Residence Private residence Support System Immediate family Are you employed? Retired Recent Hospitalization Recent Hospitalization within 30 days Yes ([facility] on 04/25 and [facility] after that) Legal Information Power of [facility] [employer] [facility] Status Information given (2019 PO names Becky Ivey) Baseline ADL's Functional Status Minimum assistance (Requires assistance with meals and bathing) Active DME Oxygen;Four wheel walker (3L oxygen at baseline, supplied by [facility], has colostomy) Behavior Cooperative Communication Talks;Understands speaking;Understands Eritrean Current Services Being Provided Outpt therapy Physical therapy (Was scheduled to start OP PT at [facility] tomorrow) Psychosocial Need Indicator Mental health concerns No Diagnosis/prognosis resulting in poor adjustment or coping with illness No Diagnosis/prognosis with anticipated outcome of major lifestyle changes, including change in oysterman living environment No Complex Family concerns No Abuse and/or neglect of elder, adult or child No Psychiatric and/or substance abuse issues affecting current hospitalization No Homelessness with lack of safe discharge environment No Need for guardianship petition No Involuntary patient No DC screening tool This is a screening tool it does not take the place of a physical or occupational therapy evaluation. The screening is to screen the patient for what services and destination would be beneficial for patient for next level of care Conversation with the patient/family Will the patient be returning to prior living situation with no new identified needs? (Pending care team recommendations and treatment outcome) Based on the screening the DC plan for consideration is: Patient expects to be discharged to: Home with home health care (Patient would like to return home with services in place) Adequate Resources Available Adequate Resources Yes documented in this encounter H&P Notes * Girish Dodson NP - 05/04/2025 1:16 PM CDT Images from the original note were not included. [facility] Hospital[facility] History & Physical Attending Provider: Fredis Navarro MD PCP: ROWDY SANDRA DO Reason for Admission: Partial small bowel obstruction, irreducible hernia Assessment / Plan: Leila Adorno is a 70-year-old female with PMH of bowel obstruction s/p sigmoid colectomy andend colostomy (2019), recurrent partial bowel obstruction, HTN, CAD, COPD on 3 L supplemental oxygen, anxiety, depression, RLS, hypothyroidism, and chronic anemia, presented to ED via EMS with progressively worsening left lower quadrant abdominal pain and decreased colostomy output. CT abdomen/pelvis with interval progression of multifocal abdominal wall hernias, with 1 ventral abdominal hernia containing new loop of small bowel with no evidence of high-grade obstruction. [facility] General Surgery was consulted from the ED. Hospitalist contacted for admission. In ED, patient received 1 L bolus NS, 4 mg IV Zofran, 4 mg IV morphine, 0.5 mg IV hydromorphone, and contrast for CT. 1. Recurrent partial small bowel obstruction, irreducible hernia - NPO, IV fluids, pain control - [facility]ER General Surgery on consult, appreciate recommendations -- NG to LIS - VS every 4 hours 2. Advanced COPD, chronic hypoxic respiratory failure - 3L home oxygen at baseline, continue oxygen as needed to maintain SpO2 88-92% - DuoNebs as needed 3. HTN, anxiety, RLS, hypothyroidism, chronic microcytic anemia - Chronic, stable, add complexity to case - Added IV Ativan and IV hydralazine as needed given n.p.o. status - Resume home meds as able Body mass index is 22.34 kg/m??. DVT prophylaxis: Lovenox CODE STATUS: Full code I spent a total of 40 minutes [id number] with the patient, reviewing the patient's chart, clinical decision making, and documentation of patient's care. HPI: Leila Adorno is a 70-year-old female with PMH of bowel obstruction s/p sigmoid colectomy andend colostomy (2019), recurrent partial bowel obstruction, HTN, CAD, COPD on 3 L supplemental oxygen, anxiety, depression, RLS, hypothyroidism, and chronic anemia, presented to ED via EMS with progressively worsening left lower quadrant abdominal pain and decreased colostomy output. CT abdomen/pelvis with interval progression of multifocal abdominal wall hernias, with 1 ventral abdominal hernia containing new loop of small bowel with no evidence of high-grade obstruction. [facility] General Surgery was consulted from the ED. Hospitalist contacted for admission. Patient seen in ED, very anxious and tearful. Patient reports she has been miserable for approximately 1 week with reports of high blood pressure at home, advised to present to ED via EMS from her primary care provider. Patient complains of intractable nausea and worsening heartburn along with rectal pressure, currently rates LLQ abdominal pain 10/10 intensity. Denies vomiting. Reports compliance with bowel regimen at home including occasional lactulose. Patient reports she had an EGD approximately 3 weeks ago, esophagus was stretched and she has another appointment next month. Denies recent fever, chills, or sweats. Denies worsening shortness of breath, verifies 3 L oxygen at baseline. Verified allergy list. Full code. Labs are relatively unremarkable, Hgb stable 11.1. No leukocytosis, differential unremarkable. Normal lactic. Normal UA. Normal renal function. Normal lipase. CT abdomen/pelvis with IV contrast demonstrating interval progression multifocal abdominal wall hernias, with largest hernia parastomal, increased in size from prior exam, now with more/larger loops of small bowel and large bowel in the hernia sac as well as a new loop of small bowel within one of the patient's ventral wall hernias. No evidence of high-grade obstruction, bowel wall thickening, orfluid in the hernia sacs. Notable fecalization of small bowel material consistent with decreased transit times and low-grade/partial obstruction not entirely excluded. Past Medical History[1] Past Surgical History[2] Allergies Allergen Reactions Cefaclor Rash and Swelling Tramadol Seizure Cyanoacrylate Rash PAPER TAPE Darvon [Propoxyphene] Rash Paper Tape [Tape] Rash Social History Tobacco Use Smoking status: Former Current packs/day: 0.00 Average packs/day: 0.5 packs/day for 50.0 years (25.0 ttl pk-yrs) Types: Cigarettes Start date: 07/03/1969 Quit date: 07/03/2019 Years since quittin.8 Smokeless tobacco: Never Substance Use Topics Alcohol use: No Comment: history of alcohol use and abuse- quit in april of 2019 (would have a pint of liquor per day) Family History[3] No current facility-administered medications on file prior to encounter. Current Outpatient Medications on File Prior to Encounter Medication Sig albuterol sulfate HFA 108 (90 Base) MCG/ACT inhaler Inhale 2 puffs into the lungs every 6 (six) hours as needed for Wheezing. buprenorphine-naloxone (SUBOXONE) 8-[address] 1 Film inside cheek daily. cloNIDine (CATAPRES) 0.2 MG tablet Take 1 tablet (0.2 mg total) by mouth 2 (two) times daily. escitalopram (LEXAPRO) 10 MG tablet Take 1 tablet (10 mg total) by mouth daily. ipratropium-albuterol (COMBIVENT RESPIMAT) 20-100 MCG/ACT inhaler Inhale 1 puff into the lungs 4 (four) times daily. Please provide assembled. levothyroxine (SYNTHROID) 125 MCG tablet Take 1 tablet (125 mcg total) by mouth every morning. lisinopril-hydroCHLOROthiazide (ZESTORETIC) 20-12.5 MG tablet Take 1 tablet by mouth daily. multi vitamin/minerals tablet Take 1 tablet by mouth daily. prazosin (MINIPRESS) 2 MG capsule Take 1 capsule (2 mg total) by mouth 3 (three) times daily. Blood pressure (!) 169/96, pulse 81, temperature 97.9 ??F (36.6 ??C), temperature source Oral, resp. rate 19, height 1.651 m (5' 5), weight 60.9 kg (134 lb 4.2 oz), SpO2 98%. Physical Exam Vitals and nursing note reviewed. Constitutional: General: She is not in acute distress. Appearance: Normal appearance. She is normal weight. She is ill-appearing. She is not toxic-appearing or diaphoretic. Interventions: Nasal cannula in place. HENT: Head: Normocephalic and atraumatic. Mouth/Throat: Mouth: Mucous membranes are moist. Eyes: General: No scleral icterus. Extraocular Movements: Extraocular movements intact. Conjunctiva/sclera: Conjunctivae normal. Pupils: Pupils are equal, round, and reactive to light. Cardiovascular: Rate and Rhythm: Normal rate and regular rhythm. Pulses: Normal pulses. Heart sounds: Normal heart sounds. No murmur heard. No gallop. Pulmonary: Effort: Pulmonary effort is normal. No respiratory distress. Breath sounds: Normal breath sounds. No wheezing or rales. Abdominal: General: Abdomen is protuberant. The ostomy site is clean. Bowel sounds are normal. There is distension. Palpations: Abdomen is soft. Tenderness: There is no abdominal tenderness. There is no guarding. Hernia: A hernia is present. Comments: LLQ colostomy in place with gas, small brown liquid output Musculoskeletal: General: Normal range of motion. Cervical back: Normal range of motion and neck supple. No rigidity or tenderness. Right lower leg: No edema. Left lower leg: No edema. Skin: General: Skin is warm and dry. Capillary Refill: Capillary refill takes less than 2 seconds. Coloration: Skin is not jaundiced. Neurological: General: No focal deficit present. Mental Status: She is alert and oriented to person, place, and time. Mental status is at baseline. Psychiatric: Attention and Perception: Attention normal. Mood and Affect: Mood is anxious. Affect is tearful. Speech: Speech normal. Behavior: Behavior normal. Thought Content: Thought content normal. Judgment: Judgment normal. Recent Labs 05/04/25 1013 WBC 6.24 HGB 11.1* HCT 34.6* MCV 92.3 PLT 293 RBC 3.75* Recent Labs Lab 05/04/25 1013 NA 137 K 3.6 CL 100 CO2 31.6 AGAP 5.4 BUN 9 CR 0.68 GLU 104 CA 9.3 TP 7.3 ALB 4.1 TBIL 0.3 ALKP 56 AST 20 ALT 20 No results for input(s): INR in the last 168 hours. No results found for this visit on 05/04/25. CT ABD+PEL W IV CON ONLY Result Date: 05/04/2025 IMPRESSION: 1. Interval progression of the patient's multifocal abdominal wall hernias, as described above. 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 One of the patient's ventral abdominal wall hernias also has a new loop of small bowel within. There is no evidence of high-grade obstruction at this time, bowel wall thickening, or fluid in the hernia sacs. There is notable fecalization of small bowel material consistent with decreased transit times and low-grade/partial obstruction cannot be entirely excluded. 2. Other chronic and nonemergent findings as above. Referred By: Interpreted By: Mike Mirza MD, 05/04/2025 11:46 AM GIRISH DODSON NP 05/04/2025 [1] Past Medical History: Diagnosis Date Addiction to drug ([facility]) Alcohol abuse 05/22/2019 By medical records history. Anxiety Arthritis Ascending aortic aneurysm Asthma ([facility]) CAD (coronary artery disease) COPD (chronic obstructive pulmonary disease) ([facility]) Depression Encounter for preventive health examination 09/27/2013 Encounter for rehabilitation 06/15/2018 Encounter for screening colonoscopy 06/15/2018 Fatty liver Hypertension Hypothyroidism Lung disease Migraines MVP (mitral valve prolapse) Neuropathy PTSD (post-traumatic stress disorder) Sleep apnea no CPAP [2] Past Surgical History: Procedure Laterality Date CARDIAC CATHETERIZATION X3;S/P stent placement CARDIAC CATHETERIZATION 12/19/2022 CARPAL TUNNEL RELEASE COLECTOMY TOTAL COLONOSCOPY FLX DX W/COLLJ SPEC WHEN PFRMD 08/03/2018 COLOSTOMY HEMORROIDECTOMY HYSTERECTOMY OTHER PROCEDURE adhesions removed [3] Family History Problem Relation Name Age of Onset CHF Mother COPD Mother Other (abdominal aortic aneurysm) Mother CHF Father Heart Attack Father Open Heart Father Stent Cardiac Father Stroke Father Lung Cancer Brother COPD Daughter Alcohol Abuse Son Obesity Son Cosigned by Fredis Navarro MD at 05/04/2025 3:07 PM CDT Associated attestation - Fredis Navarro MD - 05/04/2025 3:07 PM CDT I, Fredis Navarro MD, participated in the care of this patient today and discussed the plan of care with Girish Dodson NP , who shared in this visit. I have reviewed the SHELLEY's documentation andagree with the findings except as I have documented. I personally spent 10 minutes, caring for thispatient. Patient with history of bowel obstruction status post sigmoid colectomy and end colostomy, recurrent partial bowel obstruction presented to the emergency department complaining of progressively worsening left lower quadrant pain. Also reports decreased output from the colostomy. CT scan of the abdomen/pelvis showed interval progression of multifocal abdominal wall hernia with 1 ventral abdominal hernia containing loop of small bowel. General surgery consulted from the ER with concern for recurrent partial small bowel obstruction, a reducible hernia. Keep patient n.p.o. Continue with IV fluid hydration. As needed pain control, antiemetics. NG tube if nauseated. Fredis Navarro MD documented in this encounter Consult Notes * Oliver Rodriguez MD - 05/04/2025 2:37 PM CDTAssociated Order(s): IP CONSULT TO GENERAL SURGERY Summary: [facility] Consult Note [facility] Consult Note Attending Provider: Fredis Navarro MD PCP: ROWDY SANDRA DO Assessment and Plan: Leila Adorno is an 70-year-old female with past medical history significant for sigmoidectomy with end-colostomy ([address] Estrada) who presents for increased abdominal pain and elevated blood pressure despite medication for the past few days. Labs are unremarkable with no evidence of leukocytosis. CT scan independently reviewed and demonstrated a parastomal hernia containing subcutaneous fat andbowel through a roughly 51 mm defect. An epigastric ventral hernia containing subcutaneous fat and bowel is also seen through an approximately 21 mm defect. No evidence of high-grade bowel obstruction. Fecalization noted in small bowel. 2019 - sigmoidectomy w/ end-colostomy #partially reducible parastomal hernia #recurrent partial small bowel obstruction #partially reducible epigastric ventral hernia - AF, HDS on 3LNC - no acute surgical intervention required at this time - recommend MMPR - recommend holding home bowel regimen - serial abdominal exams - recommend NPO - recommend NGT to LIWS - continue IVF - ok for DVT ppx - no acute surgical intervention recommended at this time - General Surgery will continue to follow - rest of care per primary #COPD #HTN #CAD #anxiety - recommend resuming home meds as able - rest of care per primary Staff: Dr. Rodriguez ======= ATTENDING ATTESTATION ====== I have personally seen and evaluated the patient and reviewed the subjective, objective, laboratory, and radiographic information contained in the chart. I agree with the assessment and plan as documented by the resident except for those items noted below. Hernias soft. Air and ostomy in appliance. Denies nausea and emesis. Hernias cause pain. In absenceof obstruction, pain in not an indication for non-elective intervention. Due to combined ventral and parastomal hernias, surgical planning and optimization important. Patient did not tolerate attempted NGT placement. Will see how she progresses in terms of obstruction versus simply pain. Seen at: 1810 on 05/04 Oliver Rodriguez MD [facility] General Surgery HPI: Leila Adorno is an 70-year-old female with past medical history significant for HTN, COPD on3L O2 at home, CAD and h/o sigmoidectomy with end- colostomy ([address] Estrada) who presents for increased abdominal pain and elevated blood pressure despite medication for the past few days. She states she has had hernias of similar nature but denies them ever causing this much pain or being thisbig. She reports nausea, but denies vomiting. Reports continuing to pass gas through her stoma and pass stool, though in decreased amounts despite taking her medications as prescribed. She also states she had some pressure in her rectum similar to having the urge to have a bowel movement. PMH: Past Medical History[1] PSH: Past Surgical History[2] Allergies: Allergies Allergen Reactions Cefaclor Rash and Swelling Tramadol Seizure Gabapentin Shakiness Involuntary jerking movements Pregabalin Shakiness Involuntary jerking movements Cyanoacrylate Rash PAPER TAPE Darvon [Propoxyphene] Rash Paper Tape [Tape] Rash SH: Social History Tobacco Use Smoking status: Former Current packs/day: 0.00 Average packs/day: 0.5 packs/day for 50.0 years (25.0 ttl pk-yrs) Types: Cigarettes Start date: 07/03/1969 Quit date: 07/03/2019 Years since quittin.8 Smokeless tobacco: Never Substance Use Topics Alcohol use: No Comment: history of alcohol use and abuse- quit in april of 2019 (would have a pint of liquor per day) FH: Family History[3] Home Meds: Prior to Admission medications Medication Sig Start Date End Date Taking? Authorizing Provider albuterol sulfate HFA 108 (90 Base) MCG/ACT inhaler Inhale 2 puffs into the lungs every 6 (six) hours as needed for Wheezing. Yes Default History Genericprovider buprenorphine-naloxone (SUBOXONE) 8-[address] 1 Film inside cheek daily. Yes Default History Genericprovider cloNIDine (CATAPRES) 0.2 MG tablet Take 1 tablet (0.2 mg total) by mouth 2 (two) times daily. Yes Default History Genericprovider escitalopram (LEXAPRO) 10 MG tablet Take 1 tablet (10 mg total) by mouth daily. Yes Default HistoryGenericprovider ipratropium-albuterol (COMBIVENT RESPIMAT) 20-100 MCG/ACT inhaler Inhale 1 puff into the lungs 4 (four) times daily. Please provide assembled. Yes Default History Genericprovider levothyroxine (SYNTHROID) 125 MCG tablet Take 1 tablet (125 mcg total) by mouth every morning. YesDefault History Genericprovider lisinopril-hydroCHLOROthiazide (ZESTORETIC) 20-12.5 MG tablet Take 1 tablet by mouth daily. Yes Default History Genericprovider multi vitamin/minerals tablet Take 1 tablet by mouth daily. Yes Doc [facility] Abstract prazosin (MINIPRESS) 2 MG capsule Take 1 capsule (2 mg total) by mouth 3 (three) times daily. Yes Default History Genericprovider Review of Systems: GEN: No fevers, chills. HEENT: No scleral icterus. No change in vision or hearing. CV: No chest pain or palpitations. LUNGS: No dyspnea or cough. GI: Reports abdominal pain and nausea. Denies emesis. Reports decreased stool output through stoma.Continues to pass flatus. No melena or hematochezia. : No dysuria or frequency. ENDO: No heat or cold intolerance. HEME: No easy bruising or bleeding. NEURO: No new numbness, tingling. No new headaches. MSK: No new joint pain or swelling. PSYCH: Currently anxious and in pain. Physical Exam: Vital signs: Temp: [97.9 ??F (36.6 ??C)] 97.9 ??F (36.6 ??C) Pulse: [68-95] 68 Resp: [16-20] 19 BP: (157-178)/(85-97) 178/85 GEN: Pleasant adult female lying in hospital bed, in moderate acute distress. MENTAL STATUS: Alert, cooperative. HEENT: Normocephalic, atraumatic. EOMI. NECK: Supple, trachea midline. No JVD noted. CV: Regular rate, no tachycardia. Adequate peripheral perfusion. RESP: Airway grossly patent. No increased respiratory effort. Chest rise equal bilaterally. ABDOMEN: parastomal hernia and epigastric ventral hernia noted. Both hernias are partially reducible with no palpable release felt. Abdomen otherwise, soft, tender to deep palpation of hernias with +guarding. Stoma is pink and viable. MSK: No joint swelling or erythema noted. NEURO: AAOx3. Grossly intact. Moves all 4 extremities. SKIN: No rash or skin lesion noted. PSYCH: Anxious. Diagnostic Data: BMP: Lab Results Component Value Date NA 137 05/04/2025 K 3.6 05/04/2025 CL 100 05/04/2025 CO2 31.6 05/04/2025 BUN 9 05/04/2025 CR 0.68 05/04/2025 GLU 104 05/04/2025 LFTs: Lab Results Component Value Date AST 20 05/04/2025 ALT 20 05/04/2025 TBIL 0.3 05/04/2025 LIPASE 24 05/04/2025 ALKP 56 05/04/2025 Magnesium: Lab Results Component Value Date MAGNESIUM 1.9 07/15/2024 Phosphorus: Lab Results Component Value Date PHOS 3.6 07/15/2024 CBC: Lab Results Component Value Date HGB 11.1 (L) 05/04/2025 HCT 34.6 (L) 05/04/2025 WBC 6.24 05/04/2025 PLT 293 05/04/2025 COAGs: Lab Results Component Value Date PTT 32.7 08/08/2023 INR 1.1 (H) 08/08/2023 Cardiac Markers: Lab Results Component Value Date TROP 29 12/03/2024 TROP 44 06/25/2021 ABG: No components found for: PHA, EXS9HPM, PO2ART, SUNSHINE Radiology: Radiology Results (Last 30 days) 05/04/[address] ABD+PEL W IV CON ONLY Final result Impression: IMPRESSION: 1. Interval progression of the patient's multifocal abdominal wall hernias, as described above. 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 One of the patient's ventral abdominal wall hernias also has a new loop of small bowel within. There is no evidence of high-grade obstruction at this time, bowel wall thickening, or fluid in the hernia sacs. There is notable fecalization of small bowel material consistent with decreased transit times and low-grade/partial obstruction cannot be entirely excluded. 2. Other chronic and nonemergent findings as above. Referred By: Interpreted By: Mike Mirza MD, 05/04/2025 11:46 AM Iqra De Jesus DO 05/04/2025 [1] Past Medical History: Diagnosis Date Addiction to drug ([facility]) Alcohol abuse 05/22/2019 By medical records history. Anxiety Arthritis Ascending aortic aneurysm Asthma ([facility]) CAD (coronary artery disease) COPD (chronic obstructive pulmonary disease) ([facility]) Depression Encounter for preventive health examination 09/27/2013 Encounter for rehabilitation 06/15/2018 Encounter for screening colonoscopy 06/15/2018 Fatty liver Hypertension Hypothyroidism Lung disease Migraines MVP (mitral valve prolapse) Neuropathy PTSD (post-traumatic stress disorder) Sleep apnea no CPAP [2] Past Surgical History: Procedure Laterality Date CARDIAC CATHETERIZATION X3;S/P stent placement CARDIAC CATHETERIZATION 12/19/2022 CARPAL TUNNEL RELEASE COLECTOMY TOTAL COLONOSCOPY FLX DX W/COLLJ SPEC WHEN PFRMD 08/03/2018 COLOSTOMY HEMORROIDECTOMY HYSTERECTOMY OTHER PROCEDURE adhesions removed [3] Family History Problem Relation Name Age of Onset CHF Mother COPD Mother Other (abdominal aortic aneurysm) Mother CHF Father Heart Attack Father Open Heart Father Stent Cardiac Father Stroke Father Lung Cancer Brother COPD Daughter Alcohol Abuse Son Obesity Son documented in this encounter Nursing Notes * Florentin Aguilar LPN - 05/11/2025 2:37 PM CDTSummary: nursing N2N called at [phone] * Kell Jacinto RN - 05/07/2025 2:11 AM CDT - 01:00am- took over the care the charge nurse. - alert and oriented but forgetful. - not in respiratory distress, on O2 at 3LPM via nasal cannula, baseline - compaints of abdominal pain, not new, managed with prn iv pain medication - ambulatory; not steady; standby 1-assist - has LLQ colostomy bag; liquid brown output. - 02:11am- responded to bed alarm; reinforced to her on fall precautions; she is impulsive; re-educate her to call the nurse if needs assistance; provided her yellow socks; assisted her in going and back to bed safely; activated bed alarm at all times. Placed bed locks and lowest position. - 05:40am- repeat TF=594/77mmHg from 172/86mmHg, after prn anti HTN med given. * Kell Jacinto RN - 05/05/2025 7:49 PM CDT - 19:48pm- BSL=55mg/dL, low, on npo, activated hypoglycemia protocol, dextrose 10% 250mls iv given. - will repeat BSL post correction - suggested to [employer] gas combustion engineer to shift iv to dextrose 5% maintenance instead of normal saline. - 20:05pm- repeat YIB=334xv/dL, increase. - 22:18pm-ZG=059/86mmHg, high, no complaint of dizziness and headache; prn anti HTN given as ordered; will recheck. - 23:30pm- NGT was accidentally pulled out; informed [employer] gas combustion engineer. Will reinsert. - 01:00am- BSL=76mg/dL, baseline. On D5% LR at 100mls/hr as ordered. * Leigh Ann Fairchild RN - 05/04/2025 6:12 PM CDT Attempted to place NGT; pt is very anxious and pulling away yelling stop, stop! Pt is tearful andapologizing stating Im sorry I just can't do it. Will attempt at a later time as patient allows. documented in this encounter ED Notes * Yoli Ramirez RN - 05/04/2025 3:31 PM CDT Attempt for NG tube x1 unsuccessful, patient requesting to take a break and try again later. Dr. Navarro notified via doc halo/hurricane spray requested for second attempt, 11 charge aware * Yoli Ramirez RN - 05/04/2025 3:04 PM CDT ED Handoff to Inpatient Note Triage chief complaint: Abdominal Pain Mental Status: A/Ox4 ED Overview: Patient to ED with complaint of abdominal pain and N/V, found to have a small bowel obstruction. Patient has an ostomy. Will attempt NG x1 in ED. Patient endorsing abdominal pain despitemultiple doses of pain medication, ativan administered as well O2 demands: 3 L via NC Vitals: Blood pressure (!) 178/85, pulse 68, temperature 97.9 ??F (36.6 ??C), temperature source Oral, resp. rate 19, height 1.651 m (5' 5), weight 60.9 kg (134 lb 4.2 oz), SpO2 98%. Critical lab results: See CT Lines/Drains/Airways: PIV x2 Pending Results: NA Special equipment needed: NA Mobility: requires assist of 1 Fall risk: Yes Sitter: No Family/social needs: NA Patient Belongings: Isolation: No active isolations Any held meds and reasons: NA Consults: IP CONSULT TO PHARMACY IP CONSULT TO GENERAL SURGERY If any critical questions, call Yoli at [phone] ED Provider Diagnosis: Clinical Impression Partial small bowel obstruction ([facility]/HCC [facility]) (Primary) Admitting Provider: No admitting provider for patient encounter. Medical History: Past Medical History[1] Current Facility-Administered Medications Medication Dose Route Frequency Provider Last Rate Last Admin enoxaparin (LOVENOX) 40 MG/0.4ML syringe 40 mg 40 mg Subcutaneous Nightly (enoxaparin) Girish Dodson NP hydrALAZINE (APRESOLINE) injection 5 mg 5 mg Intravenous Q6H PRN Girish Dodson NP ipratropium-albuterol (DUONEB) 0.5-2.5 (3) MG/3ML nebulizer solution 3 mL 3 mL Nebulization Q6H PRNGedil Dodson NP LORazepam (ATIVAN) injection 0.5 mg 0.5 mg Intravenous Q4H PRN Girish Dodson NP morphine injection 4 mg 4 mg Intravenous Q4H PRN Girish Dodson NP naLOXone (NARCAN) injection 0.4 mg 0.4 mg Intravenous PRN Girish Dodson NP normal saline 0.9 % flush 3-10 mL 3-10 mL Intravenous Q8H Lucero Russ MD 10 mL at 05/04/25 1031 normal saline 0.9 % flush 3-10 mL 3-10 mL Intravenous PRN Lucero Russ MD ondansetron (ZOFRAN) injection 4 mg 4 mg Intravenous Q8H PRN Girish Dodson NP sodium chloride 0.9% infusion Intravenous Continuous Girish Dodson NP 100 mL/hr at 05/04/25 1343New Bag at 05/04/25 1343 Current Outpatient Medications Medication Sig Dispense Refill albuterol sulfate HFA 108 (90 Base) MCG/ACT inhaler Inhale 2 puffs into the lungs every 6 (six) hours as needed for Wheezing. buprenorphine-naloxone (SUBOXONE) 8-[address] 1 Film inside cheek daily. cloNIDine (CATAPRES) 0.2 MG tablet Take 1 tablet (0.2 mg total) by mouth 2 (two) times daily. escitalopram (LEXAPRO) 10 MG tablet Take 1 tablet (10 mg total) by mouth daily. ipratropium-albuterol (COMBIVENT RESPIMAT) 20-100 MCG/ACT inhaler Inhale 1 puff into the lungs 4 (four) times daily. Please provide assembled. levothyroxine (SYNTHROID) 125 MCG tablet Take 1 tablet (125 mcg total) by mouth every morning. lisinopril-hydroCHLOROthiazide (ZESTORETIC) 20-12.5 MG tablet Take 1 tablet by mouth daily. multi vitamin/minerals tablet Take 1 tablet by mouth daily. prazosin (MINIPRESS) 2 MG capsule Take 1 capsule (2 mg total) by mouth 3 (three) times daily. [1] Past Medical History: Diagnosis Date Addiction to drug ([facility]) Alcohol abuse 05/22/2019 By medical records history. Anxiety Arthritis Ascending aortic aneurysm Asthma ([facility]) CAD (coronary artery disease) COPD (chronic obstructive pulmonary disease) ([facility]) Depression Encounter for preventive health examination 09/27/2013 Encounter for rehabilitation 06/15/2018 Encounter for screening colonoscopy 06/15/2018 Fatty liver Hypertension Hypothyroidism Lung disease Migraines MVP (mitral valve prolapse) Neuropathy PTSD (post-traumatic stress disorder) Sleep apnea no CPAP * Lucero Russ MD - 05/04/2025 10:01 AM CDT Chief Complaint Chief Complaint Patient presents with Abdominal Pain History of Present Illness Patient is a 70-year-old female history of COPD on baseline 3 L, colostomy, hernias, bowel obstructions, who presents with worsening abdominal pain. Notes some nausea. States that she is burping morerecently. Notes some pressure in her rectum but denies any stools from rectum. States that pain hasbeen ongoing since last night. Nothing makes symptoms better or worse Medical History ALLERGIES: Review of patient's allergies indicates: Allergen Reactions Cefaclor Rash and Swelling Tramadol Seizure Cyanoacrylate Rash PAPER TAPE Darvon [Propoxyphene] Rash Paper Tape [Tape] Rash MEDICATIONS: Prior to Admission medications Medication Sig Start Date End Date Taking? Authorizing Provider albuterol sulfate HFA 108 (90 Base) MCG/ACT inhaler Inhale 2 puffs into the lungs every 6 (six) hours as needed for Wheezing. Yes Default History Genericprovider buprenorphine-naloxone (SUBOXONE) 8-[address] 1 Film inside cheek daily. Yes Default History Genericprovider cloNIDine (CATAPRES) 0.2 MG tablet Take 1 tablet (0.2 mg total) by mouth 2 (two) times daily. Yes Default History Genericprovider escitalopram (LEXAPRO) 10 MG tablet Take 1 tablet (10 mg total) by mouth daily. Yes Default HistoryGenericprovider ipratropium-albuterol (COMBIVENT RESPIMAT) 20-100 MCG/ACT inhaler Inhale 1 puff into the lungs 4 (four) times daily. Please provide assembled. Yes Default History Genericprovider levothyroxine (SYNTHROID) 125 MCG tablet Take 1 tablet (125 mcg total) by mouth every morning. Yes Default History Genericprovider lisinopril-hydroCHLOROthiazide (ZESTORETIC) 20-12.5 MG tablet Take 1 tablet by mouth daily. Yes Default History Genericprovider multi vitamin/minerals tablet Take 1 tablet by mouth daily. Yes Doc [facility] prazosin (MINIPRESS) 2 MG capsule Take 1 capsule (2 mg total) by mouth 3 (three) times daily. Yes Default History Genericprovider PAST MEDICAL HISTORY: Past Medical History[1] PAST SURGICAL HISTORY: Past Surgical History[2] FAMILY HISTORY: Family History[3] SOCIAL HISTORY: Social History[4] Review of Systems Review of Systems Constitutional: Negative for chills and fever. HENT: Negative for congestion and sore throat. Respiratory: Negative for cough and shortness of breath. Cardiovascular: Negative for chest pain and palpitations. Gastrointestinal: Positive for abdominal pain, constipation, nausea, rectal pain and vomiting. Negative for diarrhea. Genitourinary: Negative for difficulty urinating and dysuria. Musculoskeletal: Negative for back pain and joint swelling. Skin: Negative for rash and wound. Neurological: Negative for weakness, light-headedness and headaches. Hematological: Negative for adenopathy. Does not bruise/bleed easily. Psychiatric/Behavioral: Negative for agitation and confusion. All other systems reviewed and are negative. Physical Exam Filed Vitals: 05/04/25 1100 05/04/25 1135 05/04/25 1200 05/04/25 1241 BP: (!) 157/97 (!) 166/89 (!) 159/90 (!) 169/96 Pulse: 83 83 76 81 Resp: 20 16 19 Temp: TempSrc: SpO2: 99% 100% 99% 98% Weight: Height: Physical Exam Vitals and nursing note reviewed. Constitutional: General: She is in acute distress. Appearance: Normal appearance. She is well-developed. HENT: Head: Normocephalic and atraumatic. Eyes: Pupils: Pupils are equal, round, and reactive to light. Cardiovascular: Rate and Rhythm: Normal rate and regular rhythm. Heart sounds: Normal heart sounds. No murmur heard. No friction rub. No gallop. Pulmonary: Effort: Pulmonary effort is normal. No respiratory distress. Breath sounds: Normal breath sounds. No wheezing or rales. Abdominal: General: Bowel sounds are normal. There is no distension. Palpations: Abdomen is soft. Tenderness: There is no abdominal tenderness. Comments: Diffuse tenderness Musculoskeletal: General: No tenderness or deformity. Normal range of motion. Cervical back: Normal range of motion and neck supple. Skin: General: Skin is warm and dry. Capillary Refill: Capillary refill takes less than 2 seconds. Neurological: Mental Status: She is alert and oriented to person, place, and time. Psychiatric: Behavior: Behavior normal. Diagnostic Studies / Procedures ELECTROCARDIOGRAMS: No results found for this visit on 05/04/25. LABORATORY STUDIES: Results for orders placed or performed during the hospital encounter of 05/04/25 CBC W/DIFF AUTOMATED Result Value Ref Range WBC 6.24 4.00 - 10.80 x10'3/uL RBC 3.75 (L) 4.10 - 5.40 x10'6/uL HGB 11.1 (L) 12.0 - 16.0 G/DL HCT 34.6 (L) 36.0 - 47.0 % MCV 92.3 78.0 - 100.0 FL MCH 29.6 27.0 - 31.0 PG MCHC 32.1 (L) 33.0 - 36.0 G/DL RDW 13.9 11.5 - 14.5 % PLT 293 150 - 350 x10'3/uL MPV 9.5 7.4 - 10.4 FL DIFFERENTIAL TYPE AUTOMATED DIFFERENTIAL SEG NEUTROPHILS 73.8 % LYMPHOCYTES 13.5 % MONOCYTES 8.2 % EOSINOPHILS 3.7 % BASOPHILS 0.6 % IMMATURE GRANS % 0.2 % ABS. NEUTROPHILS 4.61 1.60 - 8.30 x10'3/uL ABS. LYMPHOCYTES 0.84 0.80 - 4.70 x10'3/uL ABS. MONOCYTES 0.51 0.00 - 1.50 x10'3/uL ABS. EOSINOPHILS 0.23 0.00 - 0.40 x10'3/uL ABS. BASOPHILS 0.04 0.00 - 0.20 x10'3/uL ABS. IMMATURE GRANULOCYTES 0.01 0.00 - 0.03 x10'3/uL ABS. NUCLEATED RBC'S 0.00 0.00 - 0.01 x10'3/uL NRBC % 0.0 % COMPREHENSIVE METABOLIC PANEL Result Value Ref Range SODIUM S/P/B 137 136 - 145 MMOL/L POTASSIUM S/P/B 3.6 3.5 - 5.1 MMOL/L CHLORIDE S/P/B 100 97 - 115 MMOL/L CO2 31.6 21.0 - 32.0 MMOL/L GLUCOSE 104 74 - 106 MG/DL BUN 9 7 - 18 MG/DL CREATININE S/P/B 0.68 0.55 - 1.02 MG/DL CALCIUM S/P/B 9.3 8.5 - 10.1 MG/DL BILIRUBIN TOTAL S/P/B 0.3 0.2 - 1.0 MG/DL ALKALINE PHOSPHATASE S/P/B 56 55 - 142 U/L AST 20 15 - 37 U/L ALT 20 13 - 56 U/L TOTAL PROTEIN S/P/B 7.3 6.4 - 8.2 G/DL ALBUMIN S/P/B 4.1 3.4 - 5.0 G/DL ANION GAP 5.4 2.0 - 10.0 MMOL/L OSMOLALITY (CALC) 283 MOSM/KG GFR ESTIMATE >90 >90 ML/MIN/1.73 M2 GFR NOTES GFR REFERENCES: LIPASE Result Value Ref Range LIPASE 24 13 - 75 UNITS/L URINALYSIS Result Value Ref Range COLOR (U) COLORLESS TRANSPARENCY CLEAR SPECIFIC GRAVITY (U) 1.006 1.002 - 1.035 U PH 6.0 5 - 8 PROTEIN RANDOM (U) NEGATIVE NEGATIVE GLUCOSE (U) NEGATIVE NEGATIVE MG/DL KETONES MG/DL (U) NEGATIVE NEGATIVE BILIRUBIN (U) NEGATIVE NEGATIVE BLOOD (U) NEGATIVE NEGATIVE NITRITES NEGATIVE NEGATIVE UROBILINOGEN NORMAL 0 - 1 EU/DL LEUKOCYTES (U) NEGATIVE NEGATIVE RBC/HPF <1 0 - 3 /HPF WBC/HPF NONE 0 - 6 /HPF BACTERIA (U) NONE /HPF LACTIC ACID W REFLEX (SEPSIS) Result Value Ref Range LACTIC ACID VENOUS 0.8 0.4 - 2.0 MMOL/L IMAGING STUDIES CT ABD+PEL W IV CON ONLY Final Result by User, [id number] (05/04 1205) [address] [address] EXAMINATION: CT ABDOMEN/PELVIS WITH CONTRAST INDICATION: Abdominal pain. Colostomy. Patient states pain is at her hernia site. COMPARISON: CT chest, abdomen, and pelvis with contrast on 12/03/2024 TECHNIQUE: Computed tomography of the abdomen, and pelvis was performed after administration of intravenous contrast, 100 of Isovue 370, without immediate complication, according to routine protocol. Radiation dose reduction technique(s) were used FINDINGS: Lower Chest: Scattered pulmonary cysts or emphysematous changes in the lung bases. There are also areas of subsegmental atelectasis. No cardiomegaly or pericardial effusion. Coronary artery calcification. Upper abdominal organs: The liver and spleen are within normal limits. There is mild prominence of the proximal pancreatic duct measuring up to about 4 mm, largely unchanged from November of this year and likely within normal limits for patient. No biliary duct dilatation. No definite cholelithiasis. The adrenal glands appear to be within normal limits. There is a large exophytic simple cyst arising from the superior pole the right kidney. There is also a simple cyst in the inferior pole the left kidney. Tiny stable hemorrhagic cyst of the left kidney. No specific imaging follow-up is recommended based on consensus guidelines. Vascular: The abdominal aorta is normal in caliber. Lymph nodes: No retroperitoneal, mesenteric, or inguinal lymphadenopathy. Gastrointestinal: Since November of this year there has been a significant interval increase in size of the patient's multifocal abdominal wall hernias. Small abdominal wall hernia anteriorly arising near the tip of the liver containing only fat appears stable (series 2 image 55). Directly below this location and another anterior abdominal wall hernia has increased in size from the prior examination and now has a single loop of small bowel (image 69). No evidence of obstruction or bowel wall thickening. No adjacent inflammatory stranding. The patient's parastomal hernia (image 92 is grade which also likely has a lateral ventricle (Spigelian component, image 81) has also increased in size from the prior examination with larger and multiple loops of bowel in the hernia sac. This appears to have both small bowel and large bowel. There is no evidence of obstruction at this time, bowel wall thickening, or fluid in the hernia sacs. There is notable fecalization of small bowel material suggestive of decreased transit times and low-grade/partial obstruction cannot be entirely excluded. The rectal stump appears intact and unremarkable. The appendix is not well-visualized though there are no secondary signs of appendicitis. Miscellaneous: No free intraperitoneal air or ascites. Pelvis: No free pelvic fluid. The urinary bladder is normal. The uterus is surgically absent. No evidence of an adnexal mass. MSK: Stable L3 compression fracture. Mild degenerative changes of the lumbar spine. IMPRESSION: 1. Interval progression of the patient's multifocal abdominal wall hernias, as described above. 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 One of the patient's ventral abdominal wall hernias also has a new loop of small bowel within. There is no evidence of high-grade obstruction at this time, bowel wall thickening, or fluid in the hernia sacs. There is notable fecalization of small bowel material consistent with decreased transit times and low-grade/partial obstruction cannot be entirely excluded. 2. Other chronic and nonemergent findings as above. Referred By: Interpreted By: Mike Mirza MD, 05/04/2025 11:46 AM XR CHEST PORTABLE (Results Pending) ED Course / Medical Decision Making Medical Decision Making Patient is a 70-year-old female who presents with abdominal pain. Differential includes bowel obstruction versus bowel perforation versus gastritis versus incarcerated hernia versus gastroparesis versus pancreatitis among other critical diagnoses. Hernias on my examination appear reducible, but patient is notably tender. Patient is otherwise hemodynamically stable. Will obtain CBC, CMP, lipase, lactic acid, urinalysis, CT abdomen pelvis with IV contrast. Will give 1 L normal saline, IV morphine and IV Zofran. Amount and/or Complexity of Data Reviewed Labs: ordered. Radiology: ordered. Risk Decision regarding hospitalization. ED Course as of 05/04/25 1308 FriMay 04, 2025 1302 Attempted parastomal hernia reduction at bedside but unsuccessful. Concern for partial bowel obstruction.Discussed with Dr Rodriguez. Recommends NG tube, general surgery resident to see, and hospitalist admission. discussed with Dr Navarro who will admit. [SI] ED Course User Index [SI] Lucero Russ MD Clinical Impression Partial small bowel obstruction (CMS/HCC HHS/HCC) (Primary) Disposition: Admit [1] Past Medical History: Diagnosis Date Addiction to drug (CMS/HCC HHS/HCC) Alcohol abuse 05/22/2019 By medical records history. Anxiety Arthritis Ascending aortic aneurysm Asthma (HHS/HCC) CAD (coronary artery disease) COPD (chronic obstructive pulmonary disease) ([facility]/HCC HHS/HCC) Depression Encounter for preventive health examination 09/27/2013 Encounter for rehabilitation 06/15/2018 Encounter for screening colonoscopy 06/15/2018 Fatty liver Hypertension Hypothyroidism Lung disease Migraines MVP (mitral valve prolapse) Neuropathy PTSD (post-traumatic stress disorder) Sleep apnea no CPAP [2] Past Surgical History: Procedure Laterality Date CARDIAC CATHETERIZATION X3;S/P stent placement CARDIAC CATHETERIZATION 12/19/2022 CARPAL TUNNEL RELEASE COLECTOMY TOTAL COLONOSCOPY FLX DX W/COLLJ SPEC WHEN PFRMD 08/03/2018 COLOSTOMY HEMORROIDECTOMY HYSTERECTOMY OTHER PROCEDURE adhesions removed [3] Family History Problem Relation Name Age of Onset CHF Mother COPD Mother Other (abdominal aortic aneurysm) Mother CHF Father Heart Attack Father Open Heart Father Stent Cardiac Father Stroke Father Lung Cancer Brother COPD Daughter Alcohol Abuse Son Obesity Son [4] Social History Tobacco Use Smoking status: Former Current packs/day: 0.00 Average packs/day: 0.5 packs/day for 50.0 years (25.0 ttl pk-yrs) Types: Cigarettes Start date: 07/03/1969 Quit date: 07/03/2019 Years since quittin.8 Smokeless tobacco: Never Vaping Use Vaping status: Never Used Substance Use Topics Alcohol use: No Comment: history of alcohol use and abuse- quit in april of 2019 (would have a pint of liquor per day) Drug use: No Lucero Russ MD 05/04/25 1308 * John Ayala RN - 05/04/2025 9:55 AM CDT Bed: E Expected date: Expected time: Means of arrival: Comments: [id number]-liy/hernia documented in this encounter Plan of Treatment Scheduled Orders Name Type Priority Associated Diagnoses Orde r Schedule Gastric PH Microbiology STAT STAT for 1 O ccurrences starting 05/04/2025 until 05/04/2025 Oxygen Therapy Nasal Cannula Oxygen; greater than 89% Respiratory Care Routine Continuous unti l discontinued starting 05/04/2025 documented as of this encounter Goals Goal Patient Goal Type Associated Problems Recent Progress Patient-Stated? Author Safety Patient/family will have appropriate support at home upon discharge Lifestyle No Anjana Masters RN Safety Patient/family will have appropriate support at home upon discharge Lifestyle No Dina Casper RN Family - family caregiver with be involved in care transitions and discharge planning Lifestyle No Lucero Camacho RN Safety Patient/family will have appropriate support at home upon discharge Lifestyle No Lucero Camacho RN documented as of this encounter Procedures Procedure Name Priority Date/Time Associated Diagnosis Comments COMPREHENSIVE METABOLIC PANEL Routine 05/11/2025 5:58 AM CDT CBC W/DIFF AUTOMATED Routine 05/11/2025 5:58 AM CDT PHOSPHORUS, INORGANIC PHOSPHATE Routine 05/11/2025 5:58 AM CDT MAGNESIUM Routine 05/11/2025 5:58 AM CDT POCT GLUCOSE - DOCKED DEVICE Routine 05/10/2025 6:03 AM CDT BASIC METABOLIC PANEL Routine 05/10/2025 5:37 AM CDT CBC W/DIFF AUTOMATED Routine 05/10/2025 5:37 AM CDT POCT GLUCOSE - DOCKED DEVICE Routine 05/10/2025 12:01 AM CDT POCT GLUCOSE - DOCKED DEVICE Routine 05/09/2025 2:16 PM CDT POCT GLUCOSE - DOCKED DEVICE Routine 05/09/2025 11:57 AM CDT POCT GLUCOSE - DOCKED DEVICE Routine 05/09/2025 5:40 AM CDT BASIC METABOLIC PANEL Routine 05/09/2025 5:11 AM CDT CBC W/DIFF AUTOMATED Routine 05/09/2025 5:11 AM CDT POCT GLUCOSE - DOCKED DEVICE Routine 05/08/2025 11:54 PM CDT POCT GLUCOSE - DOCKED DEVICE Routine 05/08/2025 6:12 AM CDT BASIC METABOLIC PANEL Routine 05/08/2025 5:55 AM CDT CBC W/DIFF AUTOMATED Routine 05/08/2025 5:55 AM CDT POCT GLUCOSE - DOCKED DEVICE Routine 05/08/2025 12:00 AM CDT POCT GLUCOSE - DOCKED DEVICE Routine 05/07/2025 12:06 PM CDT LACTIC ACID W REFLEX (SEPSIS) STAT 05/07/2025 9:40 AM CDT POCT GLUCOSE - DOCKED DEVICE Routine 05/07/2025 6:17 AM CDT XR ABD KUB Routine 05/07/2025 6:08 AM CDT BLOOD GAS, VENOUS Routine 05/07/2025 4:5 9 AM CDT BASIC METABOLIC PANEL Routine 05/07/2025 4:59 AM CDT CBC W/DIFF AUTOMATED Routine 05/07/2025 4:59 AM CDT MAGNESIUM Routine 05/07/2025 4:59 AM CDT POCT GLUCOSE - DOCKED DEVICE Routine 05/07/2025 12:20 AM CDT POCT GLUCOSE - DOCKED DEVICE Routine 05/06/2025 4:52 PM CDT POCT GLUCOSE - DOCKED DEVICE Routine 05/06/2025 12:11 PM CDT POCT GLUCOSE - DOCKED DEVICE Routine 05/06/2025 6:16 AM CDT CBC W/DIFF AUTOMATED Routine 05/06/2025 5:13 AM CDT POCT GLUCOSE - DOCKED DEVICE Routine 05/06/2025 4:48 AM CDT POCT GLUCOSE - DOCKED DEVICE Routine 05/06/2025 1:00 AM CDT POCT GLUCOSE - DOCKED DEVICE Routine 05/06/2025 12:39 AM CDT POCT GLUCOSE - DOCKED DEVICE Routine 05/05/2025 8:04 PM CDT POCT GLUCOSE - DOCKED DEVICE Routine 05/05/2025 7:38 PM CDT XR CHEST PORTABLE Routine 05/05/2025 7:1 0 PM CDT POCT GLUCOSE - DOCKED DEVICE Routine 05/05/2025 6:37 AM CDT BASIC METABOLIC PANEL Routine 05/05/2025 5:12 AM CDT CBC W/DIFF AUTOMATED Routine 05/05/2025 5:12 AM CDT POCT GLUCOSE - DOCKED DEVICE Routine 05/05/2025 1:[address] ABD+PEL W CON STAT 05/04/2025 11:2 8 AM CDT LACTIC ACID W REFLEX (SEPSIS) STAT 05/04/2025 10:13 AM CDT HC URINALYSIS AUTO W/MICRO Nurse Collected Priority 05/04/2025 10:13 AM CDT URINE BACTERIA CULTURE Nurse Collected Priority 05/04/2025 10:13 AM CDT COMPREHENSIVE METABOLIC PANEL STAT 05/04/2025 10:13 AM CDT CBC W/DIFF AUTOMATED STAT 05/04/2025 10:13 AM CDT LIPASE STAT 05/04/2025 10:13 AM CDT documented in this encounter Results * PHOSPHORUS, INORGANIC PHOSPHATE (05/11/2025 5:58 AM CDT) PHOSPHORUS 3.4 2.5 - 4.9 MG/DL 05/11/2025 8:06 AM CDT [facility] 05/11/2025 5:58 AM CDT us Mumtaz Lim MD LABORATORY Final Result Performing Organization Address [facility] Co de Phone Number [facility] [address] [place] [address], [id number] * MAGNESIUM (05/11/2025 5:58 AM CDT) MAGNESIUM 1.8 1.6 - 2.6 MG/DL 05/11/2025 8:06 AM CDT [facility] 05/11/2025 5:58 AM CDT us Mumtaz Lim MD LABORATORY Final Result Performing Organization Address City/[facility]/ZIP Co de Phone Number [facility] [address] [place] [address], [phone] * (ABNORMAL) COMPREHENSIVE METABOLIC PANEL (05/11/2025 5:58 AM CDT) SODIUM S/P/B 140 136 - 145 MMOL/L 05/11/2025 8:06 AM CDT [facility] POTASSIUM S/P/B 3.9 3.5 - 5.1 MMOL/L 05/11/2025 8:06 AM CDT [facility] CHLORIDE S/P/B 104 97 - 115 MMOL/L 05/11/2025 8:[address] [facility] CO2 33.2(H) 21.0 - 32.0 MMOL/L 05/11/2025 8:[address] [facility] GLUCOSE 95 74 - 106 MG/DL 05/11/2025 8:06 AM T [facility] BUN 10 7 - 18 MG/DL 05/11/2025 8:[address] [facility] CREATININE S/P/B 0.49(L) 0.55 - 1.02 MG/DL 05/11/2025 8:[address] [facility] CALCIUM S/P/B 8.3(L) 8.5 - 10.1 MG/DL 05/11/2025 8:[address] [facility] BILIRUBIN TOTAL S/P/B 0.4 0.2 - 1.0 MG/DL 05/11/2025 8:[address] [facility] ALKALINE PHOSPHATASE S/P/B 41(L) 55 - 142 U/L 05/11/2025 8:[address] [facility] AST 10(L) 15 - 37 U/L 05/11/2025 8:[address] [facility] ALT 13 13 - 56 U/L 05/11/2025 8:[address] [facility] TOTAL PROTEIN S/P/B 5.3(L) 6.4 - 8.2 G/DL 05/11/2025 8:[address] [facility] ALBUMIN S/P/B 2.8(L) 3.4 - 5.0 G/DL 05/11/2025 8:[address] [facility] ANION GAP 2.8 2.0 - 10.0 MMOL/L 05/11/2025 8:[address] [facility] OSMOLALITY (CALC) 289 MOSM/KG 09/24/2 025 8:06 AM CDT [facility] Comment:REFERENCE RANGE NOT ESTABLISHED GFR ESTIMATE >90 >90 ML/MIN/1. 73 M2 05/11/2025 8:06 AM CDT [facility] GFR NOTES GFR REFERENCE S: 05/11/2025 8:06 AM CDT [facility] Comment: THE ESTIMATED GFR IS CALCULATED USING THE 2020 CKD-EPI EQUATION. THE FOLLOWING CATEGORIES FOR GRADING RENAL FUNCTION ARE RECOMMENDED BY THE INTERNATIONAL SOCIETY OF NEPHROLOGY (KDIGO 2012 CLINICAL PRACTICE GUIDELINE). G1,NORMAL OR HIGH: >89 ml/min/1.73 m2 G2,MILDLY DECREASED: 60-89 ml/min/1.73 m2 G3A,MILDLY TO MODERATELY DECREASED: 45-59 ml/min/1.73 m2 G3B,MODERATELY TO SEVERELY DECREASED: 30-44 ml/min/1.73 m2 G4,SEVERELY DECREASED: 15-29 ml/min/1.73 m2 G5,KIDNEY FAILURE: <15 ml/min/1.73 m2 05/11/2025 5:58 AM CDT us Mumtaz Lim MD LABORATORY Final Result [facility] [address] [place] [address], [id number] * (ABNORMAL) CBC W/DIFF AUTOMATED (05/11/2025 5:58 AM CDT) WBC 6.83 4.00 - 10.80 x10'3/uL 05/11/2025 6:28 AM CDT [facility] RBC 3.10(L) 4.10 - 5.40 x10'6/uL 05/11/2025 6:28 AM CDT [facility] HGB 9.3(L) 12.0 - 16.0 G/DL 05/11/2025 6:28 AM CDT [facility] HCT 29.6(L) 36.0 - 47.0 % 05/11/2025 6:28 AM CDT [facility] MCV 95.5 78.0 - 100.0 FL 05/11/2025 6:28 AM CDT [facility] MCH 30.0 27.0 - 31.0 PG 05/11/2025 6:28 AM CDT [facility] MCHC 31.4(L) 33.0 - 36.0 G/DL 05/11/2025 6:28 AM CDT [facility] RDW 14.5 11.5 - 14.5 % 05/11/2025 6:28 AM CDT [facility] PLT 198 150 - 350 x10'3/uL 05/11/2025 6:28 AM CDT [facility] MPV 9.7 7.4 - 10.4 FL 05/11/2025 6:28 AM CDT [facility] DIFFERENTIAL TYPE AUTOMATED DIFFERENTIAL 05/11/2025 6:28 AM CDT [facility] SEG NEUTROPHILS 67.7 % 6:28 AM CDT [facility] LYMPHOCYTES 16.3 % 05/11/2025 6:28 AM CDT [facility] MONOCYTES 9.2 % 05/11/2025 6:28 AM CDT [facility] EOSINOPHILS 5.9 % 05/11/2025 6:28 AM CDT [facility] BASOPHILS 0.6 % 05/11/2025 6:28 AM CDT [facility] IMMATURE GRANS % 0.3 % 05/11/20 6:28 AM CDT [facility] ABS. NEUTROPHILS 4.63 1.60 - 8.30 x10'3/uL 05/11/2025 6:28 AM CDT [facility] ABS. LYMPHOCYTES 1.11 0.80 - 4.70 x10'3/uL 05/11/2025 6:28 AM CDT [facility] ABS. MONOCYTES 0.63 0.00 - 1.50 x10'3/uL 05/11/2025 6:28 AM CDT [facility] ABS. EOSINOPHILS 0.40 0.00 - 0.40 x10'3/uL 05/11/2025 6:28 AM CDT [facility] ABS. BASOPHILS 0.04 0.00 - 0.20 x10'3/uL 05/11/2025 6:28 AM CDT [facility] ABS. IMMATURE GRANULOCYTES 0.02 0.00 - 0.03 x10'3/uL 05/11/2025 6:28 AM CDT [facility] ABS. NUCLEATED RBC'S 0.00 0.00 - 0.01 x10'3/uL 05/11/2025 6:28 AM CDT [facility] NRBC % 0.0 % 05/11/2025 6:28 AM CDT [facility] 05/11/2025 5:58 AM CDT Mumtaz Lim MD LABORATORY Final Result Performing Organization Address City/[facility]/ZIP Co de Phone Number [facility] [address] [place] [address], [id number] * POCT glucose (05/10/2025 6:03 AM CDT) GLUCOSE POC 102 70 - 109 05/10/2025 6:35 AM CDT [facility] Comment:RN Notified 05/10/2025 6:03 AM CDT Fredis Navarro MD POCT ORDERABLES - DEVICE Fin al Result Performing Organization Address [facility]/ZIP Co de Phone Number [facility] [address] [place] [address], [id number] * (ABNORMAL) BASIC METABOLIC PANEL (05/10/2025 5:37 AM CDT) SODIUM S/P/B 143 136 - 145 MMOL/L 05/10/2025 6:02 AM T [facility] POTASSIUM S/P/B 3.8 3.5 - 5.1 MMOL/L 05/10/2025 6:[address] [facility] CHLORIDE S/P/B 107 97 - 115 MMOL/L 05/10/2025 6:[address] [facility] CO2 34.1(H) 21.0 - 32.0 MMOL/L 05/10/2025 6:[address] [facility] GLUCOSE 95 74 - 106 MG/DL 05/10/2025 6:[address] [facility] BUN 11 7 - 18 MG/DL 05/10/2025 6:[address] [facility] CREATININE S/P/B 0.47(L) 0.55 - 1.02 MG/DL 05/10/2025 6:[address] [facility] CALCIUM S/P/B 8.3(L) 8.5 - 10.1 MG/DL 05/10/2025 6:[address] [facility] ANION GAP 1.9(L) 2.0 - 10.0 MMOL/L 05/10/2025 6:[address] [facility] OSMOLALITY (CALC) 295 MOSM/KG 025 6:[address] [facility] Comment:REFERENCE RANGE NOT ESTABLISHED GFR ESTIMATE >90 >90 ML/MIN/1. 73 M2 05/10/2025 6:[address] [facility] GFR NOTES GFR REFERENCE S: 05/10/2025 6:[address] [facility] Comment: THE ESTIMATED GFR IS CALCULATED USING THE 2020 CKD-EPI EQUATION. THE FOLLOWING CATEGORIES FOR GRADING RENAL FUNCTION ARE RECOMMENDED BY THE INTERNATIONAL SOCIETY OF NEPHROLOGY (KDIGO 2012 CLINICAL PRACTICE GUIDELINE). G1,NORMAL OR HIGH: >89 ml/min/1.73 m2 G2,MILDLY DECREASED: 60-89 ml/min/1.73 m2 G3A,MILDLY TO MODERATELY DECREASED: 45-59 ml/min/1.73 m2 G3B,MODERATELY TO SEVERELY DECREASED: 30-44 ml/min/1.73 m2 G4,SEVERELY DECREASED: 15-29 ml/min/1.73 m2 G5,KIDNEY FAILURE: <15 ml/min/1.73 m2 05/10/2025 5:37 AM CDT Fredis Navarro MD LABORATORY Final Result [facility] [address] [place] [address], [id number] * (ABNORMAL) CBC W/DIFF AUTOMATED (05/10/2025 5:37 AM CDT) WBC 7.88 4.00 - 10.80 x10'3/uL 05/10/2025 5:53 AM CDT [facility] RBC 2.90(L) 4.10 - 5.40 x10'6/uL 05/10/2025 5:53 AM CDT [facility] HGB 8.9(L) 12.0 - 16.0 G/DL 05/10/2025 5:53 AM CDT [facility] HCT 28.0(L) 36.0 - 47.0 % 05/10/2025 5:53 AM CDT [facility] MCV 96.6 78.0 - 100.0 FL 05/10/2025 5:53 AM CDT [facility] MCH 30.7 27.0 - 31.0 PG 05/10/2025 5:53 AM CDT [facility] MCHC 31.8(L) 33.0 - 36.0 G/DL 05/10/2025 5:53 AM CDT [facility] RDW 14.4 11.5 - 14.5 % 05/10/2025 5:53 AM CDT [facility] PLT 205 150 - 350 x10'3/uL 05/10/2025 5:53 AM CDT [facility] MPV 9.4 7.4 - 10.4 FL 05/10/2025 5:53 AM CDT [facility] DIFFERENTIAL TYPE AUTOMATED DIFFERENTIAL 05/10/2025 5:53 AM CDT [facility] SEG NEUTROPHILS 65.3 % 5:53 AM CDT [facility] LYMPHOCYTES 17.6 % 05/10/2025 5:53 AM CDT [facility] MONOCYTES 9.9 % 05/10/2025 5:53 AM CDT [facility] EOSINOPHILS 5.8 % 05/10/2025 5:53 AM CDT [facility] BASOPHILS 0.9 % 05/10/2025 5:53 AM CDT [facility] IMMATURE GRANS % 0.5 % 05/10/20 5:53 AM CDT [facility] ABS. NEUTROPHILS 5.14 1.60 - 8.30 x10'3/uL 05/10/2025 5:53 AM CDT [facility] ABS. LYMPHOCYTES 1.39 0.80 - 4.70 x10'3/uL 05/10/2025 5:53 AM CDT [facility] ABS. MONOCYTES 0.78 0.00 - 1.50 x10'3/uL 05/10/2025 5:53 AM CDT [facility] ABS. EOSINOPHILS 0.46(H) 0.00 - 0.40 x10'3/uL 05/10/2025 5:53 AM CDT [facility] ABS. BASOPHILS 0.07 0.00 - 0.20 x10'3/uL 05/10/2025 5:53 AM CDT [facility] ABS. IMMATURE GRANULOCYTES 0.04(H) 0.00 - 0.03 x10'3/uL 05/10/2025 5:53 AM CDT [facility] ABS. NUCLEATED RBC'S 0.00 0.00 - 0.01 x10'3/uL 05/10/2025 5:53 AM CDT [facility] NRBC % 0.0 % 05/10/2025 5:53 AM CDT [facility] 05/10/2025 5:37 AM CDT us Fredis Navarro MD LABORATORY Final Result Performing Organization Address City/[facility]/ZIP Co de Phone Number [facility] [address] [place] [address], [place] [phone] * POCT glucose (05/10/2025 12:01 AM CDT) GLUCOSE POC 104 70 - 109 05/10/2025 12:05 AM CDT [facility] 05/10/2025 12:0 1 AM CDT us Fredis Navarro MD POCT ORDERABLES - DEVICE Fin al Result Performing Organization Address [facility] de Phone Number [facility] [address] [place] [address], [phone] * (ABNORMAL) POCT glucose (05/09/2025 2:16 PM CDT) GLUCOSE POC 112(H) 70 - 109 05/09/2025 4:42 PM CDT [facility] 05/09/2025 2:16 PM CDT us Fredis Navarro MD POCT ORDERABLES - DEVICE Fin al Result Performing Organization Address [facility] Co de Phone Number [facility] [address] [place] [address], [place] [phone] * (ABNORMAL) POCT glucose (05/09/2025 11:57 AM CDT) GLUCOSE POC 186(H) 70 - 109 05/09/2025 12:06 PM CDT [facility] 05/09/2025 11:5 7 AM CDT us Fredis Navarro MD POCT ORDERABLES - DEVICE Fin al Result Performing Organization Address [facility]/ZIP Co de Phone Number [facility] [address] [place] [address], [phone] * POCT glucose (05/09/2025 5:40 AM CDT) GLUCOSE POC 106 70 - 109 05/09/2025 5:42 AM CDT [facility] 05/09/2025 5:40 AM CDT us Fredis Navarro MD POCT ORDERABLES - DEVICE Fin al Result Performing Organization Address [facility] de Phone Number [facility] [address] [place] [address], [phone] * (ABNORMAL) BASIC METABOLIC PANEL (05/09/2025 5:11 AM CDT) SODIUM S/P/B 142 136 - 145 MMOL/L 05/09/2025 5:55 AM CDT [facility] POTASSIUM S/P/B 3.7 3.5 - 5.1 MMOL/L 05/09/2025 5:55 AM CDT [facility] CHLORIDE S/P/B 107 97 - 115 MMOL/L 05/09/2025 5:55 AM CDT [facility] CO2 32.8(H) 21.0 - 32.0 MMOL/L 05/09/2025 5:55 AM CDT [facility] GLUCOSE 84 74 - 106 MG/DL 05/09/2025 5:55 AM CDT [facility] BUN 5(L) 7 - 18 MG/DL 05/09/2025 5:55 AM CDT [facility] CREATININE S/P/B 0.38(L) 0.55 - 1.02 MG/DL 05/09/2025 5:55 AM CDT [facility] CALCIUM S/P/B 8.5 8.5 - 10.1 MG/DL 05/09/2025 5:55 AM CDT [facility] ANION GAP 2.2 2.0 - 10.0 MMOL/L 05/09/2025 5:55 AM CDT [facility] OSMOLALITY (CALC) 290 MOSM/KG 025 5:55 AM CDT [facility] Comment:REFERENCE RANGE NOT ESTABLISHED GFR ESTIMATE >90 >90 ML/MIN/1. 73 M2 05/09/2025 5:55 AM CDT [facility] GFR NOTES GFR REFERENCE S: 05/09/2025 5:55 AM CDT [facility] Comment: THE ESTIMATED GFR IS CALCULATED USING THE 2020 CKD-EPI EQUATION. THE FOLLOWING CATEGORIES FOR GRADING RENAL FUNCTION ARE RECOMMENDED BY THE INTERNATIONAL SOCIETY OF NEPHROLOGY (KDIGO 2012 CLINICAL PRACTICE GUIDELINE). G1,NORMAL OR HIGH: >89 ml/min/1.73 m2 G2,MILDLY DECREASED: 60-89 ml/min/1.73 m2 G3A,MILDLY TO MODERATELY DECREASED: 45-59 ml/min/1.73 m2 G3B,MODERATELY TO SEVERELY DECREASED: 30-44 ml/min/1.73 m2 G4,SEVERELY DECREASED: 15-29 ml/min/1.73 m2 G5,KIDNEY FAILURE: <15 ml/min/1.73 m2 05/09/2025 5:11 AM CDT us Fredis Navarro MD LABORATORY Final Result [facility] [address] [place] [address], [id number] * (ABNORMAL) CBC W/DIFF AUTOMATED (05/09/2025 5:11 AM CDT) [facility] WBC 6.92 4.00 - 10.80 x10'3/uL 05/09/2025 5:30 AM CDT [facility] RBC 3.31(L) 4.10 - 5.40 x10'6/uL 05/09/2025 5:30 AM CDT [facility] HGB 10.0(L) 12.0 - 16.0 G/DL 05/09/2025 5:30 AM CDT [facility] HCT 30.9(L) 36.0 - 47.0 % 05/09/2025 5:30 AM CDT [facility] MCV 93.4 78.0 - 100.0 FL 05/09/2025 5:30 AM CDT [facility] MCH 30.2 27.0 - 31.0 PG 05/09/2025 5:30 AM CDT [facility] MCHC 32.4(L) 33.0 - 36.0 G/DL 05/09/2025 5:30 AM CDT [facility] RDW 14.4 11.5 - 14.5 % 05/09/2025 5:30 AM CDT [facility] PLT 286 150 - 350 x10'3/uL 05/09/2025 5:30 AM CDT [facility] MPV 9.8 7.4 - 10.4 FL 05/09/2025 5:30 AM CDT [facility] DIFFERENTIAL TYPE AUTOMATED DIFFERENTIAL 05/09/2025 5:30 AM CDT [facility] SEG NEUTROPHILS 58.4 % 5:30 AM CDT [facility] LYMPHOCYTES 25.4 % 05/09/2025 5:30 AM CDT [facility] MONOCYTES 9.4 % 05/09/2025 5:30 AM CDT [facility] EOSINOPHILS 5.5 % 05/09/2025 5:30 AM CDT [facility] BASOPHILS 0.9 % 05/09/2025 5:30 AM CDT [facility] IMMATURE GRANS % 0.4 % 05/09/20 5:30 AM CDT [facility] ABS. NEUTROPHILS 4.04 1.60 - 8.30 x10'3/uL 05/09/2025 5:30 AM CDT [facility] ABS. LYMPHOCYTES 1.76 0.80 - 4.70 x10'3/uL 05/09/2025 5:30 AM CDT [facility] ABS. MONOCYTES 0.65 0.00 - 1.50 x10'3/uL 05/09/2025 5:30 AM CDT [facility] ABS. EOSINOPHILS 0.38 0.00 - 0.40 x10'3/uL 05/09/2025 5:30 AM CDT [facility] ABS. BASOPHILS 0.06 0.00 - 0.20 x10'3/uL 05/09/2025 5:30 AM CDT [facility] ABS. IMMATURE GRANULOCYTES 0.03 0.00 - 0.03 x10'3/uL 05/09/2025 5:30 AM CDT [facility] ABS. NUCLEATED RBC'S 0.00 0.00 - 0.01 x10'3/uL 05/09/2025 5:30 AM CDT [facility] NRBC % 0.0 % 05/09/2025 5:30 AM CDT [facility] 05/09/2025 5:11 AM CDT us Fredis Navarro MD LABORATORY Final Result [facility] [address] [place] [address], [id number] * POCT glucose (05/08/2025 11:54 PM CDT) GLUCOSE POC 103 70 - 109 05/08/2025 11:56 PM CDT [facility] 05/08/2025 11:5 4 PM CDT us Fredis Navarro MD POCT ORDERABLES - DEVICE Fin al Result Performing Organization Address [facility] Co de Phone Number [facility] [address] [place] [address], [phone] * POCT glucose (05/08/2025 6:12 AM CDT) GLUCOSE POC 107 70 - 109 05/08/2025 6:14 AM CDT [facility] 05/08/2025 6:12 AM CDT us Fredis Navarro MD POCT ORDERABLES - DEVICE Fin al Result Performing Organization Address [facility] Co de Phone Number [facility] [address] [place] [address], [place] [phone] * (ABNORMAL) BASIC METABOLIC PANEL (05/08/2025 5:55 AM CDT) SODIUM S/P/B 142 136 - 145 MMOL/L 05/08/2025 7:02 AM CDT [facility] POTASSIUM S/P/B 3.3(L) 3.5 - 5.1 MMOL/L 05/08/2025 7:02 AM CDT [facility] CHLORIDE S/P/B 105 97 - 115 MMOL/L 05/08/2025 7:02 AM CDT [facility] CO2 33.0(H) 21.0 - 32.0 MMOL/L 05/08/2025 7:02 AM CDT [facility] GLUCOSE 110(H) 74 - 106 MG/DL 05/08/2025 7:02 AM CDT [facility] BUN 4(L) 7 - 18 MG/DL 05/08/2025 7:02 AM CDT [facility] CREATININE S/P/B 0.32(L) 0.55 - 1.02 MG/DL 05/08/2025 7:02 AM CDT [facility] CALCIUM S/P/B 8.6 8.5 - 10.1 MG/DL 05/08/2025 7:02 AM CDT [facility] ANION GAP 4.0 2.0 - 10.0 MMOL/L 05/08/2025 7:02 AM CDT [facility] OSMOLALITY (CALC) 292 MOSM/KG 025 7:02 AM CDT [facility] Comment:REFERENCE RANGE NOT ESTABLISHED GFR ESTIMATE >90 >90 ML/MIN/1. 73 M2 05/08/2025 7:02 AM CDT [facility] GFR NOTES GFR REFERENCE S: 05/08/2025 7:02 AM T [facility] Comment: THE ESTIMATED GFR IS CALCULATED USING THE 2020 CKD-EPI EQUATION. THE FOLLOWING CATEGORIES FOR GRADING RENAL FUNCTION ARE RECOMMENDED BY THE [employer]NATIONAL SOCIETY OF NEPHROLOGY (KDIGO 2012 CLINICAL PRACTICE GUIDELINE). G1,NORMAL OR HIGH: >89 ml/min/1.73 m2 G2,MILDLY DECREASED: 60-89 ml/min/1.73 m2 G3A,MILDLY TO MODERATELY DECREASED: 45-59 ml/min/1.73 m2 G3B,MODERATELY TO SEVERELY DECREASED: 30-44 ml/min/1.73 m2 G4,SEVERELY DECREASED: 15-29 ml/min/1.73 m2 G5,KIDNEY FAILURE: <15 ml/min/1.73 m2 05/08/2025 5:55 AM CDT us Fredis Navarro MD LABORATORY Final Result [facility] [address] [place] [address], [id number] * (ABNORMAL) CBC W/DIFF AUTOMATED (05/08/2025 5:55 AM CDT) [facility] WBC 5.24 4.00 - 10.80 x10'3/uL 05/08/2025 6:31 AM CDT [facility] RBC 3.39(L) 4.10 - 5.40 x10'6/uL 05/08/2025 6:31 AM CDT [facility] HGB 10.1(L) 12.0 - 16.0 G/DL 05/08/2025 6:31 AM CDT [facility] HCT 31.8(L) 36.0 - 47.0 % 05/08/2025 6:31 AM CDT [facility] MCV 93.8 78.0 - 100.0 FL 05/08/2025 6:31 AM CDT [facility] MCH 29.8 27.0 - 31.0 PG 05/08/2025 6:31 AM CDT [facility] MCHC 31.8(L) 33.0 - 36.0 G/DL 05/08/2025 6:31 AM CDT [facility] RDW 13.8 11.5 - 14.5 % 05/08/2025 6:31 AM CDT [facility] PLT 262 150 - 350 x10'3/uL 05/08/2025 6:31 AM CDT [facility] MPV 9.3 7.4 - 10.4 FL 05/08/2025 6:31 AM CDT [facility] DIFFERENTIAL TYPE AUTOMATED DIFFERENTIAL 05/08/2025 6:31 AM CDT [facility] SEG NEUTROPHILS 65.6 % 6:31 AM CDT [facility] LYMPHOCYTES 18.5 % 05/08/2025 6:31 AM CDT [facility] MONOCYTES 10.7 % 05/08/2025 6:31 AM CDT [facility] EOSINOPHILS 3.8 % 05/08/2025 6:31 AM CDT [facility] BASOPHILS 1.0 % 05/08/2025 6:31 AM CDT [facility] IMMATURE GRANS % 0.4 % 05/08/20 6:31 AM CDT [facility] ABS. NEUTROPHILS 3.44 1.60 - 8.30 x10'3/uL 05/08/2025 6:31 AM CDT [facility] ABS. LYMPHOCYTES 0.97 0.80 - 4.70 x10'3/uL 05/08/2025 6:31 AM CDT [facility] ABS. MONOCYTES 0.56 0.00 - 1.50 x10'3/uL 05/08/2025 6:31 AM CDT [facility] ABS. EOSINOPHILS 0.20 0.00 - 0.40 x10'3/uL 05/08/2025 6:31 AM CDT [facility] ABS. BASOPHILS 0.05 0.00 - 0.20 x10'3/uL 05/08/2025 6:31 AM CDT [facility] ABS. IMMATURE GRANULOCYTES 0.02 0.00 - 0.03 x10'3/uL 05/08/2025 6:31 AM CDT [facility] ABS. NUCLEATED RBC'S 0.00 0.00 - 0.01 x10'3/uL 05/08/2025 6:31 AM CDT [facility] NRBC % 0.0 % 05/08/2025 6:31 AM CDT [facility] 05/08/2025 5:55 AM CDT us Fredis Navarro MD LABORATORY Final Result [facility] [address] [place] [address], [id number] * (ABNORMAL) POCT glucose (05/08/2025 12:00 AM CDT) GLUCOSE POC 115(H) 70 - 109 05/08/2025 2:29 AM CDT [facility] 05/08/2025 us Fredis Navarro MD POCT ORDERABLES - DEVICE Fin al Result Performing Organization Address [facility] Co de Phone Number [facility] [address] [place] [address], [phone] * (ABNORMAL) POCT glucose (05/07/2025 12:06 PM CDT) GLUCOSE POC 118(H) 70 - 109 05/07/2025 12:13 PM CDT [facility] 05/07/2025 12:0 6 PM CDT us Fredis Navarro MD POCT ORDERABLES - DEVICE Fin al Result Performing Organization Address [facility] de Phone Number [facility] [address] [place] [address], [id number] * LACTIC ACID W REFLEX (SEPSIS) (05/07/2025 9:40 AM CDT) LACTIC ACID VENOUS 0.8 0.4 - 2.0 MMOL/L 05/07/2025 10:22 AM CDT [facility] 05/07/2025 9:40 AM CDT us Fredis Navarro MD LABORATORY Final Result Performing Organization Address [facility] de Phone Number [facility] [address] [place] [address], [id number] * (ABNORMAL) POCT glucose (05/07/2025 6:17 AM CDT) GLUCOSE POC 110(H) 70 - 109 05/07/2025 6:38 AM CDT [facility] 05/07/2025 6:17 AM CDT us Fredis Navarro MD POCT ORDERABLES - DEVICE Fin al Result [facility] [address] [place] [address], [id number] * XR ABD KUB (05/07/2025 6:08 AM CDT) Anatomical Region Laterality Modality Abdomen Radiographic Rhoda ging 05/07/2025 7:17 AM CDT Impressions 05/07/2025 7:18 AM CDT IMPRESSION: No acute findings Ordered By: IQRA DE JESUS Interpreted By: David Delcid MD, 05/07/2025 7:17 AM Narrative 05/07/2025 7:18 AM CDT [address] [address] 1 VIEW(s) OF THE ABDOMEN History: Obstruction Comparison:February 20, 2020 A single view of the abdomen demonstrates a grossly normal bowel gas pattern. No pathologic intra-abdominal calcifications are seen. A nonspecific catheter overlies the left lower quadrant of the abdomen. There is no indication of free intraperitoneal air Procedure Note David Delcid MD - 05/07/[address] [address] 1 VIEW(s) OF THE ABDOMEN History: Obstruction Comparison:February 20, 2020 A single view of the abdomen demonstrates a grossly normal bowel gaspattern. No pathologic intra-abdominal calcifications are seen. Anonspecific catheter overlies the left lower quadrant of the abdomen.There is no indication of free intraperitoneal air IMPRESSION: No acute findings Ordered By: IQRA DE JESUS Interpreted By: David Delcid MD, 05/07/2025 7:17 AM Iqra De Jesus DO GENERAL IMAGING Final Result * (ABNORMAL) MAGNESIUM (05/07/2025 4:59 AM CDT) MAGNESIUM 1.4(L) 1.6 - 2.6 MG/DL 05/07/2025 11:34 AM CDT [facility] 05/07/2025 4:59 AM CDT Fredis Navarro MD LABORATORY Final Result [facility] [address] [place] [address], [id number] * (ABNORMAL) Blood gas, venous (05/07/2025 4:59 AM CDT) Pathologist [facility] PH VENOUS 7.35 7.32 - 7.43 05/07/2025 5:44 AM CDT [facility] PCO2 VENOUS 66.0 MMHG 05/07/2025 5:44 AM CDT [facility] Comment:NO REFERENCE RANGE H BEEN ESTABLISHED PO2 VENOUS 69.0 MM HG 05/07/2025 5:44 AM CDT [facility] Comment:NO REFERENCE RANGE H BEEN ESTABLISHED TOTAL CO2 VENOUS 38.4(H) 22.0 - 26.0 MMOL/L 05/07/2025 5:44 AM CDT [facility] BASE EXCESS VENOUS 8.3 MMOL/L 05/07/2025 5:44 AM CDT [facility] Comment:NO REFERENCE RANGE H BEEN ESTABLISHED O2 SAT VENOUS 93 % 05/07/2025 5:44 AM CDT [facility] Comment:NO REFERENCE RANGE H BEEN ESTABLISHED BICARB VENOUS 36.4(H) 22.0 - 29.0 MMOL/L 05/07/2025 5:44 AM CDT [facility] OXYGEN STATUS yes 05/07/2025 4:59 AM CDT [facility] 05/07/2025 4:59 AM CDT Fredis Navarro MD LABORATORY Final Result [facility] [address] [place] [address], [id number] * (ABNORMAL) BASIC METABOLIC PANEL (05/07/2025 4:59 AM CDT) SODIUM S/P/B 139 136 - 145 MMOL/L 05/07/2025 6:03 AM CDT [facility] POTASSIUM S/P/B 3.0(L) 3.5 - 5.1 MMOL/L 05/07/2025 6:03 AM CDT [facility] CHLORIDE S/P/B 102 97 - 115 MMOL/L 05/07/2025 6:03 AM CDT [facility] CO2 33.0(H) 21.0 - 32.0 MMOL/L 05/07/2025 6:03 AM CDT [facility] GLUCOSE 121(H) 74 - 106 MG/DL 05/07/2025 6:03 AM CDT [facility] BUN 3(L) 7 - 18 MG/DL 05/07/2025 6:03 AM CDT [facility] CREATININE S/P/B 0.35(L) 0.55 - 1.02 MG/DL 05/07/2025 6:03 AM CDT [facility] CALCIUM S/P/B 8.8 8.5 - 10.1 MG/DL 05/07/2025 6:03 AM CDT [facility] ANION GAP 4.0 2.0 - 10.0 MMOL/L 05/07/2025 6:03 AM CDT [facility] OSMOLALITY (CALC) 286 MOSM/KG 025 6:03 AM CDT [facility] Comment:REFERENCE RANGE NOT ESTABLISHED GFR ESTIMATE >90 >90 ML/MIN/1. 73 M2 05/07/2025 6:03 AM CDT [facility] GFR NOTES GFR REFERENCE S: 05/07/2025 6:03 AM CDT [facility] Comment: THE ESTIMATED GFR IS CALCULATED USING THE 2020 CKD-EPI EQUATION. THE FOLLOWING CATEGORIES FOR GRADING RENAL FUNCTION ARE RECOMMENDED BY THE INTERNATIONAL SOCIETY OF NEPHROLOGY (KDIGO 2012 CLINICAL PRACTICE GUIDELINE). G1,NORMAL OR HIGH: >89 ml/min/1.73 m2 G2,MILDLY DECREASED: 60-89 ml/min/1.73 m2 G3A,MILDLY TO MODERATELY DECREASED: 45-59 ml/min/1.73 m2 G3B,MODERATELY TO SEVERELY DECREASED: 30-44 ml/min/1.73 m2 G4,SEVERELY DECREASED: 15-29 ml/min/1.73 m2 G5,KIDNEY FAILURE: <15 ml/min/1.73 m2 05/07/2025 4:59 AM CDT us Fredis Navarro MD LABORATORY Final Result [facility] [address] [place] [address], [id number] * (ABNORMAL) CBC W/DIFF AUTOMATED (05/07/2025 4:59 AM CDT) WBC 5.17 4.00 - 10.80 x10'3/uL 05/07/2025 5:27 AM CDT [facility] RBC 3.45(L) 4.10 - 5.40 x10'6/uL 05/07/2025 5:27 AM CDT [facility] HGB 10.2(L) 12.0 - 16.0 G/DL 05/07/2025 5:27 AM CDT [facility] HCT 32.0(L) 36.0 - 47.0 % 05/07/2025 5:27 AM CDT [facility] MCV 92.8 78.0 - 100.0 FL 05/07/2025 5:27 AM CDT [facility] MCH 29.6 27.0 - 31.0 PG 05/07/2025 5:27 AM CDT [facility] MCHC 31.9(L) 33.0 - 36.0 G/DL 05/07/2025 5:27 AM CDT [facility] RDW 13.6 11.5 - 14.5 % 05/07/2025 5:27 AM CDT [facility] PLT 250 150 - 350 x10'3/uL 05/07/2025 5:27 AM CDT [facility] MPV 9.2 7.4 - 10.4 FL 05/07/2025 5:27 AM CDT [facility] DIFFERENTIAL TYPE AUTOMATED DIFFERENTIAL 05/07/2025 5:27 AM CDT [facility] SEG NEUTROPHILS 59.5 % 5:27 AM CDT [facility] LYMPHOCYTES 21.1 % 05/07/2025 5:27 AM CDT [facility] MONOCYTES 13.2 % 05/07/2025 5:27 AM CDT [facility] EOSINOPHILS 5.0 % 05/07/2025 5:27 AM CDT [facility] BASOPHILS 0.8 % 05/07/2025 5:27 AM CDT [facility] IMMATURE GRANS % 0.4 % 05/07/20 5:27 AM CDT [facility] ABS. NEUTROPHILS 3.08 1.60 - 8.30 x10'3/uL 05/07/2025 5:27 AM CDT [facility] ABS. LYMPHOCYTES 1.09 0.80 - 4.70 x10'3/uL 05/07/2025 5:27 AM CDT [facility] ABS. MONOCYTES 0.68 0.00 - 1.50 x10'3/uL 05/07/2025 5:27 AM CDT [facility] ABS. EOSINOPHILS 0.26 0.00 - 0.40 x10'3/uL 05/07/2025 5:27 AM CDT [facility] ABS. BASOPHILS 0.04 0.00 - 0.20 x10'3/uL 05/07/2025 5:27 AM CDT [facility] ABS. IMMATURE GRANULOCYTES 0.02 0.00 - 0.03 x10'3/uL 05/07/2025 5:27 AM CDT [facility] ABS. NUCLEATED RBC'S 0.00 0.00 - 0.01 x10'3/uL 05/07/2025 5:27 AM CDT [facility] NRBC % 0.0 % 05/07/2025 5:27 AM CDT [facility] 05/07/2025 4:59 AM CDT Girish Dodson [facility] LABORAT[facility] Final Result Performing Organization Address City/[facility]/ZIP Co de Phone Number [facility] [address] [place] [address], [id number] * (ABNORMAL) POCT glucose (05/07/2025 12:20 AM CDT) GLUCOSE POC 113(H) 70 - 109 05/07/2025 12:25 AM CDT [facility] 05/07/2025 12:2 0 AM CDT Fredis Navarro MD POCT ORDERABLES - DEVICE Fin al Result Performing Organization Address City/[facility]/ZIP Co de Phone Number [facility] [address] [place] [address], [phone] * (ABNORMAL) POCT glucose (05/06/2025 4:52 PM CDT) GLUCOSE POC 125(H) 70 - 109 05/06/2025 4:55 PM CDT [facility] 05/06/2025 4:52 PM CDT us Fredis Navarro MD POCT ORDERABLES - DEVICE Fin al Result Performing Organization Address [facility]/ZIP Co de Phone Number [facility] [address] [place] [address], [id number] * (ABNORMAL) POCT glucose (05/06/2025 12:11 PM CDT) GLUCOSE POC 129(H) 70 - 109 05/06/2025 12:19 PM CDT [facility] 05/06/2025 12:1 1 PM CDT us Fredis Navarro MD POCT ORDERABLES - DEVICE Fin al Result Performing Organization Address [facility] de Phone Number [facility] [address] [place] [address], [id number] * POCT glucose (05/06/2025 6:16 AM CDT) GLUCOSE POC 97 70 - 109 05/06/2025 6:18 AM CDT [facility] 05/06/2025 6:16 AM CDT us Fredis Navarro MD POCT ORDERABLES - DEVICE Fin al Result Performing Organization Address [facility] Co de Phone Number [facility] [address] [place] [address], [id number] * (ABNORMAL) CBC W/DIFF AUTOMATED (05/06/2025 5:13 AM CDT) WBC 4.97 4.00 - 10.80 x10'3/uL 05/06/2025 5:22 AM CDT [facility] RBC 3.28(L) 4.10 - 5.40 x10'6/uL 05/06/2025 5:22 AM CDT [facility] HGB 9.7(L) 12.0 - 16.0 G/DL 05/06/2025 5:22 AM CDT [facility] HCT 30.6(L) 36.0 - 47.0 % 05/06/2025 5:22 AM CDT [facility] MCV 93.3 78.0 - 100.0 FL 05/06/2025 5:22 AM CDT [facility] MCH 29.6 27.0 - 31.0 PG 05/06/2025 5:22 AM CDT [facility] MCHC 31.7(L) 33.0 - 36.0 G/DL 05/06/2025 5:22 AM CDT [facility] RDW 14.0 11.5 - 14.5 % 05/06/2025 5:22 AM CDT [facility] PLT 283 150 - 350 x10'3/uL 05/06/2025 5:22 AM CDT [facility] MPV 9.1 7.4 - 10.4 FL 05/06/2025 5:22 AM CDT [facility] DIFFERENTIAL TYPE AUTOMATED DIFFERENTIAL 05/06/2025 5:22 AM CDT [facility] SEG NEUTROPHILS 61.0 % 5:22 AM CDT [facility] LYMPHOCYTES 18.5 % 05/06/2025 5:22 AM CDT [facility] MONOCYTES 13.3 % 05/06/2025 5:22 AM CDT [facility] EOSINOPHILS 6.0 % 05/06/2025 5:22 AM CDT [facility] BASOPHILS 0.8 % 05/06/2025 5:22 AM CDT [facility] IMMATURE GRANS % 0.4 % 05/06/20 5:22 AM CDT [facility] ABS. NEUTROPHILS 3.03 1.60 - 8.30 x10'3/uL 05/06/2025 5:22 AM CDT [facility] ABS. LYMPHOCYTES 0.92 0.80 - 4.70 x10'3/uL 05/06/2025 5:22 AM CDT [facility] ABS. MONOCYTES 0.66 0.00 - 1.50 x10'3/uL 05/06/2025 5:22 AM CDT [facility] ABS. EOSINOPHILS 0.30 0.00 - 0.40 x10'3/uL 05/06/2025 5:22 AM CDT [facility] ABS. BASOPHILS 0.04 0.00 - 0.20 x10'3/uL 05/06/2025 5:22 AM CDT [facility] ABS. IMMATURE GRANULOCYTES 0.02 0.00 - 0.03 x10'3/uL 05/06/2025 5:22 AM CDT [facility] ABS. NUCLEATED RBC'S 0.00 0.00 - 0.01 x10'3/uL 05/06/2025 5:22 AM CDT [facility] NRBC % 0.0 % 05/06/2025 5:22 AM CDT [facility] 05/06/2025 5:13 AM CDT us Girish Dodson NP LABORATORY Final Result [facility] [address] [place] [address], [id number] * (ABNORMAL) POCT glucose (05/06/2025 4:48 AM CDT) GLUCOSE POC 114(H) 70 - 109 05/06/2025 4:50 AM CDT [facility] 05/06/2025 4:48 AM CDT us Fredis Navarro MD POCT ORDERABLES - DEVICE Fin al Result Performing Organization Address [facility] Co de Phone Number [facility] [address] [place] [address], [place] [phone] * POCT glucose (05/06/2025 1:00 AM CDT) GLUCOSE POC 76 70 - 109 05/06/2025 1:02 AM CDT [facility] 05/06/2025 1:00 AM CDT us Fredis Navarro MD POCT ORDERABLES - DEVICE Fin al Result Performing Organization Address [facility] Co de Phone Number [facility] [address] [place] [address], [place] [phone] * POCT glucose (05/06/2025 12:39 AM CDT) GLUCOSE POC 76 70 - 109 05/06/2025 12:50 AM CDT [facility] 05/06/2025 12:3 9 AM CDT us Fredis Navarro MD POCT ORDERABLES - DEVICE Fin al Result Performing Organization Address [facility] Co de Phone Number [facility] [address] [place] [address], [place] [phone] * (ABNORMAL) POCT glucose (05/05/2025 8:04 PM CDT) GLUCOSE POC 198(H) 70 - 109 05/05/2025 10:32 PM CDT [facility] 05/05/2025 8:04 PM CDT us Fredis Navarro MD POCT ORDERABLES - DEVICE Fin al Result [facility] [address] [place] [address], [place] [phone] * (ABNORMAL) POCT glucose (05/05/2025 7:38 PM CDT) [facility] GLUCOSE POC 55(L) 70 - 109 05/05/2025 8:23 PM CDT [facility] 05/05/2025 7:38 PM CDT us Fredis Navarro MD POCT ORDERABLES - DEVICE Fin al Result Performing Organization Address [facility] Co de Phone Number [facility] [address] [place] [address], [place] [phone] * XR CHEST PORTABLE (05/05/2025 7:10 PM CDT) Anatomical Region Laterality Modality Chest Radiographic Rhoda ging 05/05/2025 10:1 3 PM CDT Impressions 05/05/2025 10:15 PM CDT IMPRESSION: 1. Enteric tube terminates in the region of the stomach. 2. Nonspecific, dilated loops of bowel in the upper abdomen. 3. No acute cardiopulmonary findings. Referred By: Interpreted By: Rio Lance MD, 05/05/2025 10:13 PM Narrative 05/05/2025 10:15 PM CDT [facility] [address] [place], [place] [address] Examination: Chest x-ray 1 view Exam Date/Time: 05/05/2025 7:03 PM REASON FOR EXAM: 70 years-old Female with Confirmation of Gastric Tube Placement. Comparison: Chest x-ray 10/27/2024, CT chest, abdomen pelvis 12/03/2024 Technique: Single AP view of the chest was obtained. Findings: Enteric tube terminates in the region of the stomach. Heart size is within normal limits. Lungs are clear. There is no pleural effusion or pneumothorax. Dilated loops of bowel in the upper abdomen. No acute osseous lesions are seen. Procedure Note Rio Lance MD - 05/05/[address] [address] Examination: Chest x-ray 1 view Exam Date/Time: 05/05/2025 7:03 PM REASON FOR EXAM: 70 years-old Female with Confirmation of Gastric TubePlacement. Comparison: Chest x-ray 10/27/2024, CT chest, abdomen pelvis 12/03/2024 Technique: Single AP view of the chest was obtained. Findings: Enteric tube terminates in the region of the stomach. Heart size is within normal limits. Lungs are clear. There is no pleural effusion or pneumothorax. Dilated loops of bowel in the upper abdomen. No acute osseous lesions are seen. IMPRESSION: 1. Enteric tube terminates in the region of the stomach. 2. Nonspecific, dilated loops of bowel in the upper abdomen. 3. No acute cardiopulmonary findings. Referred By: Interpreted By: Rio Lance MD, 05/05/2025 10:13 PM Iqra De Jesus DO GENERAL IMAGING Final Result * POCT glucose (05/05/2025 6:37 AM CDT) Pathologist [facility] GLUCOSE POC 84 70 - 109 05/05/2025 6:43 AM CDT [facility] 05/05/2025 6:37 AM CDT Fredis Navarro MD POCT ORDERABLES - DEVICE Fin al Result [facility] [address] [place] [address], [place] [phone] * (ABNORMAL) BASIC METABOLIC PANEL (05/05/2025 5:12 AM CDT) SODIUM S/P/B 140 136 - 145 MMOL/L 05/05/2025 6:30 AM CDT [facility] POTASSIUM S/P/B 3.4(L) 3.5 - 5.1 MMOL/L 05/05/2025 6:30 AM CDT [facility] CHLORIDE S/P/B 102 97 - 115 MMOL/L 05/05/2025 6:30 AM T [facility] CO2 31.4 21.0 - 32.0 MMOL/L 05/05/2025 6:30 AM T [facility] GLUCOSE 97 74 - 106 MG/DL 05/05/2025 6:30 AM T [facility] BUN 5(L) 7 - 18 MG/DL 05/05/2025 6:30 AM T [facility] CREATININE S/P/B 0.45(L) 0.55 - 1.02 MG/DL 05/05/2025 6:30 AM T [facility] CALCIUM S/P/B 9.1 8.5 - 10.1 MG/DL 05/05/2025 6:30 AM T [facility] ANION GAP 6.6 2.0 - 10.0 MMOL/L 05/05/2025 6:30 AM T [facility] OSMOLALITY (CALC) 287 MOSM/KG 025 6:30 AM T [facility] Comment:REFERENCE RANGE NOT ESTABLISHED GFR ESTIMATE >90 >90 ML/MIN/1. 73 M2 05/05/2025 6:30 AM T [facility] GFR NOTES GFR REFERENCE S: 05/05/2025 6:30 AM T [facility] Comment: THE ESTIMATED GFR IS CALCULATED USING THE 2020 CKD-EPI EQUATION. THE FOLLOWING CATEGORIES FOR GRADING RENAL FUNCTION ARE RECOMMENDED BY THE INTERNATIONAL SOCIETY OF NEPHROLOGY (KDIGO 2012 CLINICAL PRACTICE GUIDELINE). G1,NORMAL OR HIGH: >89 ml/min/1.73 m2 G2,MILDLY DECREASED: 60-89 ml/min/1.73 m2 G3A,MILDLY TO MODERATELY DECREASED: 45-59 ml/min/1.73 m2 G3B,MODERATELY TO SEVERELY DECREASED: 30-44 ml/min/1.73 m2 G4,SEVERELY DECREASED: 15-29 ml/min/1.73 m2 G5,KIDNEY FAILURE: <15 ml/min/1.73 m2 05/05/2025 5:12 AM CDT Girish Dodson NP LABORATORY Final Result [facility] [address] [place] [address], [id number] * (ABNORMAL) CBC W/DIFF AUTOMATED (05/05/2025 5:12 AM CDT) WBC 4.42 4.00 - 10.80 x10'3/uL 05/05/2025 5:51 AM CDT [facility] RBC 3.52(L) 4.10 - 5.40 x10'6/uL 05/05/2025 5:51 AM CDT [facility] HGB 10.6(L) 12.0 - 16.0 G/DL 05/05/2025 5:51 AM CDT [facility] HCT 33.3(L) 36.0 - 47.0 % 05/05/2025 5:51 AM CDT [facility] MCV 94.6 78.0 - 100.0 FL 05/05/2025 5:51 AM CDT [facility] MCH 30.1 27.0 - 31.0 PG 05/05/2025 5:51 AM CDT [facility] MCHC 31.8(L) 33.0 - 36.0 G/DL 05/05/2025 5:51 AM CDT [facility] RDW 14.0 11.5 - 14.5 % 05/05/2025 5:51 AM CDT [facility] PLT 267 150 - 350 x10'3/uL 05/05/2025 5:51 AM CDT [facility] MPV 9.5 7.4 - 10.4 FL 05/05/2025 5:51 AM CDT [facility] DIFFERENTIAL TYPE AUTOMATED DIFFERENTIAL 05/05/2025 5:51 AM CDT [facility] SEG NEUTROPHILS 85.5 % 5:51 AM CDT [facility] LYMPHOCYTES 10.6 % 05/05/2025 5:51 AM CDT [facility] MONOCYTES 2.9 % 05/05/2025 5:51 AM CDT [facility] EOSINOPHILS 0.0 % 05/05/2025 5:51 AM CDT [facility] BASOPHILS 0.5 % 05/05/2025 5:51 AM CDT [facility] IMMATURE GRANS % 0.5 % 05/05/20 5:51 AM CDT [facility] ABS. NEUTROPHILS 3.78 1.60 - 8.30 x10'3/uL 05/05/2025 5:51 AM CDT [facility] ABS. LYMPHOCYTES 0.47(L) 0.80 - 4.70 x10'3/uL 05/05/2025 5:51 AM CDT [facility] ABS. MONOCYTES 0.13 0.00 - 1.50 x10'3/uL 05/05/2025 5:51 AM CDT [facility] ABS. EOSINOPHILS 0.00 0.00 - 0.40 x10'3/uL 05/05/2025 5:51 AM CDT [facility] ABS. BASOPHILS 0.02 0.00 - 0.20 x10'3/uL 05/05/2025 5:51 AM CDT [facility] ABS. IMMATURE GRANULOCYTES 0.02 0.00 - 0.03 x10'3/uL 05/05/2025 5:51 AM CDT [facility] ABS. NUCLEATED RBC'S 0.00 0.00 - 0.01 x10'3/uL 05/05/2025 5:51 AM CDT [facility] NRBC % 0.0 % 05/05/2025 5:51 AM CDT [facility] 05/05/2025 5:12 AM CDT Girish Dodson [facility] Final Result Performing Organization Address [facility]/ZIP Co de Phone Number [facility] [address] [place] [address], [phone] * POCT glucose (05/05/2025 1:14 AM CDT) [facility] GLUCOSE POC 92 70 - 109 05/05/2025 1:16 AM CDT [facility] 05/05/2025 1:14 AM CDT Fredis Navarro MD POCT ORDERABLES - DEVICE Fin al Result Performing Organization Address [facility] Co de Phone Number [facility] [address] [place] [address], [phone] * CT ABD+PEL W IV CON ONLY (05/04/2025 11:28 AM CDT) Anatomical Region Laterality Modality Abdomen Computed Tomogra phy 05/04/2025 11:4 6 AM CDT Impressions 05/04/2025 12:04 PM CDT IMPRESSION: 1. Interval progression of the patient's multifocal abdominal wall hernias, as described above. 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 One of the patient's ventral abdominal wall hernias also has a new loop of small bowel within. There is no evidence of high-grade obstruction at this time, bowel wall thickening, or fluid in the hernia sacs. There is notable fecalization of small bowel material consistent with decreased transit times and low-grade/partial obstruction cannot be entirely excluded. 2. Other chronic and nonemergent findings as above. Referred By: Interpreted By: Mike Mirza MD, 05/04/2025 11:46 AM Narrative 05/04/2025 12:04 PM CDT [address] [address] EXAMINATION: CT ABDOMEN/PELVIS WITH CONTRAST INDICATION: Abdominal pain. Colostomy. Patient states pain is at her hernia site. COMPARISON: CT chest, abdomen, and pelvis with contrast on 12/03/2024 TECHNIQUE: Computed tomography of the abdomen, and pelvis was performed after administration of intravenous contrast, 100 of Isovue 370, without immediate complication, according to routine protocol. Radiation dose reduction technique(s) were used FINDINGS: Lower Chest: Scattered pulmonary cysts or emphysematous changes in the lung bases. There are also areas of subsegmental atelectasis. No cardiomegaly or pericardial effusion. Coronary artery calcification. Upper abdominal organs: The liver and spleen are within normal limits. There is mild prominence of the proximal pancreatic duct measuring up to about 4 mm, largely unchanged from November of this year and likely within normal limits for patient. No biliary duct dilatation. No definite cholelithiasis. The adrenal glands appear to be within normal limits. There is a large exophytic simple cyst arising from the superior pole the right kidney. There is also a simple cyst in the inferior pole the left kidney. Tiny stable hemorrhagic cyst of the left kidney. No specific imaging follow-up is recommended based on consensus guidelines. Vascular: The abdominal aorta is normal in caliber. Lymph nodes: No retroperitoneal, mesenteric, or inguinal lymphadenopathy. Gastrointestinal: Since November of this year there has been a significant interval increase in size of the patient's multifocal abdominal wall hernias. Small abdominal wall hernia anteriorly arising near the tip of the liver containing only fat appears stable (series 2 image 55). Directly below this location and another anterior abdominal wall hernia has increased in size from the prior examination and now has a single loop of small bowel (image 69). No evidence of obstruction or bowel wall thickening. No adjacent inflammatory stranding. The patient's parastomal hernia (image 92 is grade which also likely has a lateral ventricle (Spigelian component, image 81) has also increased in size from the prior examination with larger and multiple loops of bowel in the hernia sac. This appears to have both small bowel and large bowel. There is no evidence of obstruction at this time, bowel wall thickening, or fluid in the hernia sacs. There is notable fecalization of small bowel material suggestive of decreased transit times and low-grade/partial obstruction cannot be entirely excluded. The rectal stump appears intact and unremarkable. The appendix is not well- visualized though there are no secondary signs of appendicitis. Miscellaneous: No free intraperitoneal air or ascites. Pelvis: No free pelvic fluid. The urinary bladder is normal. The uterus is surgically absent. No evidence of an adnexal mass. MSK: Stable L3 compression fracture. Mild degenerative changes of the lumbar spine. Procedure Note Mike Mirza MD - 05/04/2025 [place] [id number] EXAMINATION: CT ABDOMEN/PELVIS WITH CONTRAST INDICATION: Abdominal pain. Colostomy. Patient states pain is at herhernia site. COMPARISON: CT chest, abdomen, and pelvis with contrast on 12/03/2024 TECHNIQUE: Computed tomography of the abdomen, and pelvis was performedafter administration of intravenous contrast, 100 of Isovue 370, withoutimmediate complication, according to routine protocol. Radiation dosereduction technique(s) were used FINDINGS: Lower Chest: Scattered pulmonary cysts or emphysematous changes in thelung bases. There are also areas of subsegmental atelectasis. Nocardiomegaly or pericardial effusion. Coronary artery calcification. Upper abdominal organs: The liver and spleen are within normal limits.There is mild prominence of the proximal pancreatic duct measuring up toabout 4 mm, largely unchanged from November of this year and likely withinnormal limits for patient. No biliary duct dilatation. No definitecholelithiasis. The adrenal glands appear to be within normal limits.There is a large exophytic simple cyst arising from the superior pole theright kidney. There is also a simple cyst in the inferior pole the leftkidney. Tiny stable hemorrhagic cyst of the left kidney. No specificimaging follow-up is recommended based on consensus guidelines. Vascular: The abdominal aorta is normal in caliber. Lymph nodes: No retroperitoneal, mesenteric, or inguinallymphadenopathy. Gastrointestinal: Since November of this year there has been a significantinterval increase in size of the patient's multifocal abdominal wallhernias. Small abdominal wall hernia anteriorly arising near the tip ofthe liver containing only fat appears stable (series 2 image 55).Directly below this location and another anterior abdominal wall herniahas increased in size from the prior examination and now has a single loopof small bowel (image 69). No evidence of obstruction or bowel wallthickening. No adjacent inflammatory stranding. The patient's parastomalhernia (image 92 is grade which also likely has a lateral ventricle(Spigelian component, image 81) has also increased in size from the priorexamination with larger and multiple loops of bowel in the hernia sac.This appears to have both small bowel and large bowel. There is noevidence of obstruction at this time, bowel wall thickening, or fluid inthe hernia sacs. There is notable fecalization of small bowel materialsuggestive of decreased transit times and low-grade/partial obstructioncannot be entirely excluded. The rectal stump appears intact andunremarkable. The appendix is not well-visualized though there are nosecondary signs of appendicitis. Miscellaneous: No free intraperitoneal air or ascites. Pelvis: No free pelvic fluid. The urinary bladder is normal. The uterus issurgically absent. No evidence of an adnexal mass. MSK: Stable L3 compression fracture. Mild degenerative changes of thelumbar spine. IMPRESSION: 1. Interval progression of the patient's multifocal abdominal wallhernias, as described above. The largest hernia is a parastomal herniawhich has increased in size from the prior examination and now hasmore/larger loops of small bowel and large bowel in the hernia sac. Oneof the patient's ventral abdominal wall hernias also has a new loop ofsmall bowel within. There is no evidence of high-grade obstruction atthis time, bowel wall thickening, or fluid in the hernia sacs. There isnotable fecalization of small bowel material consistent with decreasedtransit times and low-grade/partial obstruction cannot be entirelyexcluded. 2. Other chronic and nonemergent findings as above. Referred By: Interpreted By: Mike Mirza MD, 05/04/2025 11:46 AM us Lucero Russ MD CT Final Result * LACTIC ACID W REFLEX (SEPSIS) (05/04/2025 10:13 AM CDT) LACTIC ACID VENOUS 0.8 0.4 - 2.0 MMOL/L 05/04/2025 11:20 AM CDT [facility] 05/04/2025 10:1 3 AM CDT us Lucero Russ MD LABORATORY Final Result Performing Organization Address [facility] de Phone Number [facility] [address] [place] [address], [id number] * CULTURE URINE (05/04/2025 10:13 AM CDT) SPEC DESCRIPTION URINE CLEAN CATCH 05/04/2025 10:13 AM CDT [facility] SPECIAL REQUESTS NO SPECIAL REQUEST 05/04/2025 10:13 AM CDT [facility] CULTURE RESULT NO GROWTH (< OR = 1,000 CFU/ML) 05/05/2025 12:00 PM CDT [facility] URINE SPECIMEN OBTAINED BY CLEAN CATCH PROCEDURE / Unknown 05/04/2025 10:13 AM CDT 05/04/2025 10:41 AM CDT us Lucero Russ MD MICROBIOLOGY - GENERAL ORDERABL ES Final Result Performing Organization Address [facility] Co de Phone Number [facility] [address] [place] [address], [id number] * URINALYSIS (05/04/2025 10:13 AM CDT) COLOR (U) COLORLESS 05/04/2025 10:45 AM CDT [facility] TRANSPARENCY CLEAR 05/04/2025 10:45 AM CDT [facility] SPECIFIC GRAVITY (U) 1.006 1.002 - 1.035 05/04/2025 10:45 AM CDT [facility] U PH 6.0 5 - 8 05/04/2025 10:45 AM CDT [facility] PROTEIN RANDOM (U) NEGATIVE NEGATIVE 05/04/2025 10:45 AM CDT [facility] GLUCOSE (U) NEGATIVE NEGATIVE MG/DL 05/04/2025 10:45 AM CDT [facility] KETONES MG/DL (U) NEGATIVE NEGATIVE 05/04/2025 10:45 AM CDT [facility] BILIRUBIN (U) NEGATIVE NEGATIVE 05/04/2025 10:45 AM CDT [facility] BLOOD (U) NEGATIVE NEGATIVE 05/04/2025 10:45 AM CDT [facility] NITRITES NEGATIVE NEGATIVE 05/04/2025 10:45 AM CDT [facility] UROBILINOGEN NORMAL 0 - 1 EU/DL 05/04/2025 10:45 AM CDT [facility] LEUKOCYTES (U) NEGATIVE NEGATIVE 05/04/2025 10:45 AM CDT [facility] RBC/HPF <1 0 - 3 /HPF 05/04/2025 10:45 AM CDT [facility] WBC/HPF NONE 0 - 6 /HPF 05/04/2025 10:45 AM CDT [facility] BACTERIA (U) NONE /HPF 05/04/2025 10:45 AM CDT [facility] URINE SPECIMEN OBTAINED BY CLEAN CATCH PROCEDURE / Unknown 05/04/2025 10:13 AM CDT us Lucero Russ MD URINE ORDERABLES Final Result [facility] [address] [place] [address], [place] [phone] [id number] * LIPASE (05/04/2025 10:13 AM CDT) Pathologist [facility] LIPASE 24 13 - 75 UNITS/L 05/04/2025 11:09 AM CDT [facility] 05/04/2025 10:1 3 AM CDT Lucero Russ MD LABORATORY Final Result [facility] [address] [place] [address], [place] [phone] [phone] * COMPREHENSIVE METABOLIC PANEL (05/04/2025 10:13 AM CDT) Pathologist [facility] SODIUM S/P/B 137 136 - 145 MMOL/L 05/04/2025 11:09 AM CDT [facility] POTASSIUM S/P/B 3.6 3.5 - 5.1 MMOL/L 05/04/2025 11:09 AM CDT [facility] CHLORIDE S/P/B 100 97 - 115 MMOL/L 05/04/2025 11:09 AM CDT [facility] CO2 31.6 21.0 - 32.0 MMOL/L 05/04/2025 11:09 AM CDT [facility] GLUCOSE 104 74 - 106 MG/DL 05/04/2025 11:09 AM CDT [facility] BUN 9 7 - 18 MG/DL 05/04/2025 11:09 AM CDT [facility] CREATININE S/P/B 0.68 0.55 - 1.02 MG/DL 05/04/2025 11:09 AM CDT [facility] CALCIUM S/P/B 9.3 8.5 - 10.1 MG/DL 05/04/2025 11:09 AM CDT [facility] BILIRUBIN TOTAL S/P/B 0.3 0.2 - 1.0 MG/DL 05/04/2025 11:09 AM T [facility] ALKALINE PHOSPHATASE S/P/B 56 55 - 142 U/L 05/04/2025 11:[address] [facility] AST 20 15 - 37 U/L 05/04/2025 11:[address] [facility] ALT 20 13 - 56 U/L 05/04/2025 11:[address] [facility] TOTAL PROTEIN S/P/B 7.3 6.4 - 8.2 G/DL 05/04/2025 11:[address] [facility] ALBUMIN S/P/B 4.1 3.4 - 5.0 G/DL 05/04/2025 11:[address] [facility] ANION GAP 5.4 2.0 - 10.0 MMOL/L 05/04/2025 11:[address] [facility] OSMOLALITY (CALC) 283 MOSM/KG 025 11:[address] [facility] Comment:REFERENCE RANGE NOT ESTABLISHED GFR ESTIMATE >90 >90 ML/MIN/1. 73 M2 05/04/2025 11:[address] [facility] GFR NOTES GFR REFERENCE S: 05/04/2025 11:[address] [facility] Comment: THE ESTIMATED GFR IS CALCULATED USING THE 2020 CKD-EPI EQUATION. THE FOLLOWING CATEGORIES FOR GRADING RENAL FUNCTION ARE RECOMMENDED BY THE INTERNATIONAL SOCIETY OF NEPHROLOGY (KDIGO 2012 CLINICAL PRACTICE GUIDELINE). G1,NORMAL OR HIGH: >89 ml/min/1.73 m2 G2,MILDLY DECREASED: 60-89 ml/min/1.73 m2 G3A,MILDLY TO MODERATELY DECREASED: 45-59 ml/min/1.73 m2 G3B,MODERATELY TO SEVERELY DECREASED: 30-44 ml/min/1.73 m2 G4,SEVERELY DECREASED: 15-29 ml/min/1.73 m2 G5,KIDNEY FAILURE: <15 ml/min/1.73 m2 05/04/2025 10:1 3 AM CDT Lucero Russ MD LABORATORY Final Result [facility] [address] [place] [address], [id number] * (ABNORMAL) CBC W/DIFF AUTOMATED (05/04/2025 10:13 AM CDT) WBC 6.24 4.00 - 10.80 x10'3/uL 05/04/2025 10:45 AM CDT [facility] RBC 3.75(L) 4.10 - 5.40 x10'6/uL 05/04/2025 10:45 AM CDT [facility] HGB 11.1(L) 12.0 - 16.0 G/DL 05/04/2025 10:45 AM CDT [facility] HCT 34.6(L) 36.0 - 47.0 % 05/04/2025 10:45 AM CDT [facility] MCV 92.3 78.0 - 100.0 FL 05/04/2025 10:45 AM CDT [facility] MCH 29.6 27.0 - 31.0 PG 05/04/2025 10:45 AM CDT [facility] MCHC 32.1(L) 33.0 - 36.0 G/DL 05/04/2025 10:45 AM CDT [facility] RDW 13.9 11.5 - 14.5 % 05/04/2025 10:45 AM CDT [facility] PLT 293 150 - 350 x10'3/uL 05/04/2025 10:45 AM CDT [facility] MPV 9.5 7.4 - 10.4 FL 05/04/2025 10:45 AM CDT [facility] DIFFERENTIAL TYPE AUTOMATED DIFFERENTIAL 05/04/2025 10:45 AM CDT [facility] SEG NEUTROPHILS 73.8 % 10:45 AM CDT [facility] LYMPHOCYTES 13.5 % 05/04/2025 10:45 AM CDT [facility] MONOCYTES 8.2 % 05/04/2025 10:45 AM CDT [facility] EOSINOPHILS 3.7 % 05/04/2025 10:45 AM CDT [facility] BASOPHILS 0.6 % 05/04/2025 10:45 AM CDT [facility] IMMATURE GRANS % 0.2 % 05/04/20 10:45 AM CDT [facility] ABS. NEUTROPHILS 4.61 1.60 - 8.30 x10'3/uL 05/04/2025 10:45 AM CDT [facility] ABS. LYMPHOCYTES 0.84 0.80 - 4.70 x10'3/uL 05/04/2025 10:45 AM CDT [facility] ABS. MONOCYTES 0.51 0.00 - 1.50 x10'3/uL 05/04/2025 10:45 AM CDT [facility] ABS. EOSINOPHILS 0.23 0.00 - 0.40 x10'3/uL 05/04/2025 10:45 AM CDT [facility] ABS. BASOPHILS 0.04 0.00 - 0.20 x10'3/uL 05/04/2025 10:45 AM CDT [facility] ABS. IMMATURE GRANULOCYTES 0.01 0.00 - 0.03 x10'3/uL 05/04/2025 10:45 AM CDT [facility] ABS. NUCLEATED RBC'S 0.00 0.00 - 0.01 x10'3/uL 05/04/2025 10:45 AM CDT [facility] NRBC % 0.0 % 05/04/2025 10:45 AM CDT [facility] 05/04/2025 10:1 3 AM CDT us Lucero Russ MD LABORATORY Final Result [facility] [address] [place] [address], [id number] documented in this encounter Visit Diagnoses Diagnosis Small bowel obstruction, partial (CMS/HCC HHS/HCC)- Primary Unspecified intestinal obstruction Partial small bowel obstruction (CMS/HCC HHS/HCC) Unspecified intestinal obstruction Small bowel obstruction, partial (CMS/HCC HHS/HCC) Unspecified intestinal obstruction documented in this encounter Admitting Diagnoses Diagnosis Small bowel obstruction, partial (CMS/HCC HHS/HCC) Unspecified intestinal obstruction documented in this encounter Administered Medications Active Administered Medications - up to 3 most recent administrations Medication Order MAR Action Action Date Dose Rate Site benzocaine 20 % (HURRICAINE) mouth solution 1 spray 1 spray, Mouth/Throat, 4 times daily PRN, Pain, Starting on Fri05/04/25 at 1623, Until Discontinued, Do NOT recommend use for teething & mouth pain in infants & children under 2 years. buprenorphine-naloxone (SUBOXONE) 8-2 MG film 1 Film 1 Film, Buccal, Daily, First dose on Fri05/11/25 at 1030, Until Discontinued Given 05/11/2025 10:46 AM CDT 1 Film citalopram (CeleXA) tablet 40 mg 40 mg, Oral, Daily, First dose on Fri05/09/25 at 0930, Until Discontinued, Therapeutic interchange for home escitalopram 20 mg Given 05/11/2025 8:18 AM CDT 40 mg Given 05/10/2025 10:03 AM CDT 40 mg Given 05/09/2025 9:57 AM CDT 40 mg cloNIDine (CATAPRES) tablet 0.2 mg 0.2 mg, Oral, 2 times daily, First dose on Fri05/09/25 at 0930, Until Discontinued Given 05/11/2025 8:18 AM CDT 0.2 mg Given 05/10/2025 8:23 PM CDT 0.2 mg Given 05/10/2025 10:03 AM CDT 0.2 mg dextrose (GLUTOSE) 40 % oral gel 37.5-75 g 37.5-75 g (15-30 g of dextrose), Oral, As needed, Low blood sugar, Starting on 05/05/25 at 1940, Until Discontinued, If patient is verbally responsive and taking thickened liquids or oral medications: Blood glucose less than 50 mg/dL - give 30 g of dextrose; repeat until blood glucose reaches 70 mg/dL Blood glucose 50-69 mg/dL - give 15 g of dextrose; repeat until blood glucose reaches 70 mg/dL 37.5 g of glucose gel = 15 g of dextrose dextrose 10 % bolus infusion 125-250 mL 125-250 mL, Intravenous, Administer over 15 Minutes, As needed, Low Blood Sugar, Starting on [facility] 05/05/25 at 1940, Until Discontinued, If patient is verbally responsive and NPO or unable to swallow: Blood glucose less than 50 mg/dL - give 250 mL (25 g) and repeat until blood glucose reaches 70 mg/dL Blood glucose 50-69 mg/dL - give 125 mL (12.5 g) and repeat until blood glucose reaches 70 mg/dL If patient is verbally Unresponsive and NPO or unable to swallow: Blood glucose less than 70 mg/dL - give 250 mL (25 g), repeat until blood glucose reaches 70 mg/dL New Bag 05/05/2025 7:48 PM CDT 250 mLs 800 mL/hr enoxaparin (LOVENOX) 40 MG/0.4ML syringe 40 mg 40 mg, Subcutaneous, Nightly (enoxaparin), First dose on Fri05/04/25 at 2100, Until Discontinued, Administer by deep SubQ injection alternating between the left or right anterolateral and left or right posterolateral abdominal wall. Given 05/10/2025 8:23 PM CDT 40 mg Left Upper Abdomen Given 05/09/2025 8:48 PM CDT 40 mg Ri ght Lower Abdomen Given 05/08/2025 8:09 PM CDT 40 mg Ri ght Lower Abdomen glucagon injection 1 mg 1 mg, Intramuscular, Once as needed, Other, Low blood sugar, 1 dose, Starting on [facility] 05/05/25 at 1940, Until Discontinued, If patient is verbally UNresponsive and no IV access with blood glucose less than 70 mg/dL. Do NOT repeat administration. hydrALAZINE (APRESOLINE) injection 10 mg 10 mg, Intravenous, Every 6 hours PRN, Other, SBP >170, Starting on [facility] 05/05/25 at 1352, Until Discontinued, Monitor HR and BP before dose and 15 min after IV dose. For IV push give over 1-2 minutes=5mg/min. Given 05/10/2025 9:38 PM CDT 10 mg Given 05/08/2025 10:55 PM CDT 10 mg Given 05/08/2025 6:53 AM CDT 10 mg ipratropium-albuterol (DUONEB) 0.5-2.5 (3) MG/3ML nebulizer solution 3 mL 3 mL, Nebulization, Every 6 hours PRN, Shortness of breath, Starting on Fri05/04/25 at 1444, Until Discontinued ketorolac (TORADOL) injection 15 mg 15 mg, Intravenous, Every 6 hours PRN, Moderate pain (Scale 4 - 7), Starting on 05/07/25 at 0946, Until Rosaline 05/12/25 at 0945, For IV administration, give over 15 seconds. Given 05/11/2025 12:4 5 PM CDT 15 mg Given 05/11/2025 12:52 AM CDT 15 mg Given 05/10/2025 6:39 PM CDT 15 mg levothyroxine (SYNTHROID) tablet 125 mcg 125 mcg, Oral, Every morning, First dose on Fri05/09/25 at 0930, Until Discontinued, Avoid iron, calcium, and antacids within 4 hours of administration. Given 05/11/2025 6:27 AM CDT 125 mcg Given 05/10/2025 6:09 AM CDT 125 mcg Given 05/09/2025 9:57 AM CDT 125 mcg LORazepam (ATIVAN) tablet 0.5 mg 0.5 mg, Oral, Every 4 hours PRN, Anxiety, Starting on Fri05/09/25 at 0929, Until Discontinued Given 05/11/2025 12:52 PM CDT 0.5 mg Given 05/11/2025 6:27 AM CDT 0.5 mg Given 05/11/2025 2:05 AM CDT 0.5 mg normal saline 0.9 % flush 3-10 mL 3-10 mL, Intravenous, Every 8 hours, First dose on Fri05/04/25 at 1015, Until Discontinued Given 05/11/2025 8:36 AM CDT 10 mLs Given 05/11/2025 2:02 AM CDT 10 mLs Given 05/10/2025 8:27 PM CDT 10 mLs normal saline 0.9 % flush 3-10 mL 3-10 mL, Intravenous, As needed, Line care, Starting on Fri05/04/25 at 1000, Until Discontinued Given 05/06/2025 10:28 AM CDT 10 mLs ondansetron (ZOFRAN) injection 4 mg 4 mg, Intravenous, Every 8 hours PRN, Nausea, Vomiting, Starting on Fri05/04/25 at 1329, Until Discontinued, IV push over 2-5 minutes. Given 05/10/2025 4:50 AM CDT 4 mg Given 05/09/2025 7:06 PM CDT 4 mg Given 05/07/2025 7:44 AM CDT 4 mg pantoprazole (PROTONIX) 40 mg in sodium chloride (PF) 0.9 % 10 mL IV 40 mg, Intravenous, Daily, First dose on Fri05/07/25 at 1015, Until Discontinued, Reconstitute each 40 mg vial with 10 mL normal saline to a final concentration of 4 mg/mL. Administer intravenously over a period of a least 2 minutes. Given 05/11/2025 8:35 AM CDT 40 mg Given 05/10/2025 10:03 AM CDT 40 mg Given 05/09/2025 8:44 AM CDT 40 mg polyethylene glycol (GLYCOLAX) packet 1 packet 1 packet, Oral, Daily, First dose on Fri05/08/25 at 0930, Until Discontinued, Dissolve entire packet in 240 mL of water Given 05/11/2025 8:18 AM CDT 1 packet Given 05/10/2025 10:03 AM CDT 1 packet Given 05/09/2025 8:44 AM CDT 1 packet rOPINIRole (REQUIP) tablet 0.5 mg 0.5 mg, Oral, Nightly at bedtime, First dose on Fri05/09/25 at 2100, Until Discontinued Given 05/10/2025 8:22 PM CDT 0 .5 mg Given 05/09/2025 8:47 PM CDT 0.5 mg saline enema adult (FLEET) 7-19 GM/118ML enema 1 enema 1 enema, Rectal, Daily as needed, Constipation, pSBO, Starting on Fri05/06/25 at 0941, Until Discontinued, Give fleet enema through red rubber catheter in stoma. Keep one side of red rubber catheter clipped to bag to prevent removal. Go through bottom of bag and give enema through red rubber catheter. Peristalsis may push the catheter out a bit, gently twist catheter and push in with peristalsis. [facility] resident if catheter comes completely out and you are not able to replace it. Thanks! Given 05/06/2025 10:22 AM CDT 1 enema Inactive Administered Medications - up to 3 most recent administrations Medication Order MAR Action Action Date Dose Rate Site lpjbjmertc-rlowaihgjxhxy-c affeine (ESGIC) tablet 1 tablet 1 tablet, Oral, Every 6 hours PRN, Headaches, Starting on Rosaline 05/05/25 at 0754, Until Rosaline 05/05/25 at 1909, Maximum dose of acetaminophen is 4000 mg from all sources in 24 hours. Given 05/05/2025 8:46 AM CDT 1 tablet pdxjgozydd-qytoqncneydbe-y affeine (ESGIC) tablet 1 tablet 1 tablet, Oral, Every 6 hours PRN, Headaches, Starting on Fri05/08/25 at 1108, Until Fri05/09/25 at 0929, Maximum dose of acetaminophen is 4000 mg from all sources in 24 hours. Given 05/09/2025 8:47 AM CDT 1 tablet dextrose 5 % and 0.45 % NaCl with KCl 20 mEq infusion at 100 mL/hr, Intravenous, Continuous, Starting on Fri05/08/25 at 0900, Until [place] 05/08/25 at 2053 New Bag 05/08/2025 9:08 AM CDT 100 mL/hr dextrose 5 % lactated ringers infusion at 100 mL/hr, Intravenous, Continuous, Starting on Rosaline 05/05/25 at 2015, Until [place] 05/08/25 at 0833 Rate/Dose Verify 05/08/2025 12:49 AM CDT 100 mL/hr Rate/Dose Verify 05/08/2025 12:47 AM CDT 100 mL /hr New Bag 05/07/2025 9:05 PM CDT 100 mL/hr HYDROcodone-acetaminophen (NORCO) 5-325 MG tablet 1 tablet 1 tablet, Oral, Every 6 hours PRN, Moderate pain (Scale 4 - 7), Starting on Fri05/09/25 at 0929, Until Fri05/11/25 at 0959, Maximum dose of acetaminophen is 4000 mg from all sources in 24 hours. Given 05/11/2025 6:27 AM CDT 1 tablet Given 05/10/2025 8:21 PM CDT 1 tablet Given 05/10/2025 1:44 PM CDT 1 tablet HYDROmorphone (DILAUDID) injection 0.2 mg 0.2 mg, Intravenous, Once, 1 dose, On Fri05/04/25 at 1345, Administer slowly over at least 2-3 minutes. Given 05/04/2025 1:46 PM CDT 0.2 mg HYDROmorphone (DILAUDID) injection 0.5 mg 0.5 mg, Intravenous, Once, 1 dose, On Fri05/04/25 at 1230, Administer slowly over at least 2-3 minutes. Given 05/04/2025 12:40 PM CDT 0.5 mg influenza vaccine (FLUZONE) injection 0.5 mL 0.5 mL, Intramuscular, Prior to discharge, Other, 1 dose, Starting on Fri05/04/25 at 1557, Until Fri05/11/25 at 1412, Please give vaccine prior to discharge. Given 05/11/2025 2:12 PM CDT 0.5 mLs Righ t Deltoid iopamidol (ISOVUE-370) 76 % injection 100 mL 100 mL, Intravenous, IMG once as needed, Contrast, 1 dose, Starting on Fri05/04/25 at 1129, Until Fri05/04/25 at 1129 Given 05/04/2025 11:29 AM CDT 100 mLs ketorolac (TORADOL) injection 15 mg 15 mg, Intravenous, Once, 1 dose, On Fri05/06/25 at 1430, For IV administration, give over 15 seconds. Given 05/06/2025 4:56 PM CDT 15 mg LORazepam (ATIVAN) injection 0.5 mg 0.5 mg, Intravenous, Every 4 hours PRN, Anxiety, Starting on Fri05/04/25 at 1332, Until Fri05/09/25 at 0929, For IV use, further dilute with an equal volume of saline. Do not exceed a rate of 2 mg/min. Given 05/09/2025 8:43 AM CDT 0.5 mg Given 05/09/2025 4:30 AM CDT 0.5 mg Given 05/09/2025 12:49 AM CDT 0.5 mg LORazepam (ATIVAN) injection 0.5 mg 0.5 mg, Intravenous, Once, 1 dose, On Fri05/04/25 at 1415, For IV use, further dilute with an equal volume of saline. Do not exceed a rate of 2 mg/min. Given 05/04/2025 2:38 PM CDT 0.5 mg morphine injection 1 mg 1 mg, Intravenous, Once, 1 dose, On Fri05/10/25 at 0715 Given 05/10/2025 6:57 AM CDT 1 mg morphine injection 1 mg 1 mg, Intravenous, Once, 1 dose, On Fri05/11/25 at 0215 Given 05/11/2025 2:01 AM CDT 1 mg morphine injection 1 mg 1 mg, Intravenous, Once, 1 dose, On Fri05/11/25 at 0700 Given 05/11/2025 6:50 AM CDT 1 mg morphine injection 4 mg 4 mg, Intravenous, Once, 1 dose, On Fri05/04/25 at 1015 Given 05/04/2025 10:30 AM CDT 4 mg morphine injection 4 mg 4 mg, Intravenous, Once, 1 dose, On Fri05/04/25 at 1200 Given 05/04/2025 12:05 PM CDT 4 mg morphine injection 4 mg 4 mg, Intravenous, Every 4 hours PRN, Severe pain (Scale 8 - 10), Starting on Fri05/04/25 at 1623, Until 05/07/25 at 0832 Given 05/07/2025 5:06 AM CDT 4 mg Given 05/07/2025 12:26 AM CDT 4 mg Given 05/06/2025 7:54 PM CDT 4 mg morphine injection 4 mg 4 mg, Intravenous, Every 3 hours PRN, Severe pain (Scale 8 - 10), Starting on 05/07/25 at 0838, Until 05/09/25 at 0929 Given 05/09/2025 6:56 AM CDT 4 mg Given 05/09/2025 3:00 AM CDT 4 mg Given 05/08/2025 10:55 PM CDT 4 mg ondansetron (ZOFRAN) injection 4 mg 4 mg, Intravenous, Once, 1 dose, On Fri05/04/25 at 1015, IV push over 2-5 minutes. Given 05/04/2025 10:30 AM CDT 4 mg potassium chloride 40 mEq in NS 500 mL IVPB 40 mEq, Intravenous, Administer over 240 Minutes, Once, 1 dose, On Rosaline 05/05/25 at 0815, MAX rate in peripheral line of 10 mEq per hour. New Bag 05/05/2025 8:47 AM CDT 40 mEq 125 mL/hr potassium chloride 40 mEq in NS 500 mL IVPB 40 mEq, Intravenous, Administer over 240 Minutes, Once, 1 dose, On 05/07/25 at 0915, MAX rate in peripheral line of 10 mEq per hour. New Bag 05/07/2025 9:23 AM CDT 40 mEq 125 mL/hr potassium chloride 40 mEq in NS 500 mL IVPB 40 mEq, Intravenous, Administer over 240 Minutes, Once, 1 dose, On 05/08/25 at 0900, MAX rate in peripheral line of 10 mEq per hour. New Bag 05/08/2025 9:08 AM CDT 40 mEq 125 mL/hr sodium chloride 0.9% bolus infusion 1,000 mL 1,000 mL, Intravenous, Administer over 15 Minutes, Once, 1 dose, On Fri05/04/25 at 1015 New Bag 05/04/2025 10:39 AM CDT 1,000 mLs 4000 mL/hr sodium chloride 0.9% infusion at 100 mL/hr, Intravenous, Continuous, Starting on Fri05/04/25 at 1345, Until Rosaline 05/05/25 at 1958 New Bag 05/05/2025 1:41 PM CDT 100 mL/hr New Bag 05/05/2025 12:08 AM CDT 100 mL/hr New Bag 05/04/2025 7:19 PM CDT 100 mL/hr documented in this encounter Active and Recently Administered Medications Times are shown in CDT. Scheduled Medication Order 05/09/2025 05/10/2025 05/11/2025 buprenorphine-naloxone (SUBOXONE) 8-2 MG film 1 Film 1 Film, Buccal, Daily, First dose on Fri05/11/25 at 1030, Until Discontinued 1046 (Given - Provider: Florentin Aguilar LPN) citalopram (CeleXA) tablet 40 mg 40 mg, Oral, Daily, First dose on Fri05/09/25 at 0930, Until Discontinued, Therapeutic interchange for home escitalopram 20 mg 0957 (Given - Provider: Florentin Aguilar LPN) 100 (Given - Provider: Elis Montana RN) 08 (Given - Provider: Florentin Aguilar LPN) cloNIDine (CATAPRES) tablet 0.2 mg 0.2 mg, Oral, 2 times daily, First dose on Fri05/09/25 at 0930, Until Discontinued 1040 (Given - Provider: Florentin Aguilar LPN)2046 (Given - Provider: Erwin Velazquez RN) 100 (Given - Provider: Elis Montana RN)2022 (Given - Provider: Nancy Mello LPN) 08 (Given - Provider: Florentin Aguilar LPN)2100 (Due) enoxaparin (LOVENOX) 40 MG/0.4ML syringe 40 mg(Linked Group 1) 40 mg, Subcutaneous, Nightly (enoxaparin), First dose on Fri05/04/25 at 2100, Until Discontinued, Administer by deep SubQ injection alternating between the left or right anterolateral and left or right posterolateral abdominal wall. 2047 (Given - Provider: Erwin Velazquez RN) 2022 (Given - Provider: Nancy Mello LPN) 2100 (Due) levothyroxine (SYNTHROID) tablet 125 mcg 125 mcg, Oral, Every morning, First dose on Fri05/09/25 at 0930, Until Discontinued, Avoid iron, calcium, and antacids within 4 hours of administration. 0957 (Given - Provider: Florentin Aguilar LPN) 0609 (Given - Provider: Erwin Velazquez RN) 0627 (Given - Provider: Nancy Mello LPN) morphine injection 1 mg (COMPLETED) 1 mg, Intravenous, Once, 1 dose, On Fri05/10/25 at 0715 0657 (Given - Provider: Erwin Velazquez RN) morphine injection 1 mg (COMPLETED) 1 mg, Intravenous, Once, 1 dose, On Fri05/11/25 at 0215 0201 (Given - Provider: Erwin Velazquez RN) morphine injection 1 mg (COMPLETED) 1 mg, Intravenous, Once, 1 dose, On Fri05/11/25 at 0700 0650 (Given - Provider: Erwin Velazquez RN) normal saline 0.9 % flush 3-10 mL 3-10 mL, Intravenous, Every 8 hours, First dose on Fri05/04/25 at 1015, Until Discontinued 0054 (Given - Provider: Lucero Stallworth RN)0958 (Given - Provider: Florentin Aguilar LPN)1728 (Given - Provider: Florentin Aguilar LPN) 0215 (Not Given - Provider: Erwin Velazquez RN - Reason: Patient sleeping)1051 (Hold - Provider: Elis Montana RN - Reason: Other - Comment: pt discharging)2026 (Given - Provider: Nancy Mello LPN) 020 (Given - Provider: Erwin Velazquez RN)0836 (Given - Provider: Lupe West, FARTUN)1814 (Due) pantoprazole (PROTONIX) 40 mg in sodium chloride (PF) 0.9 % 10 mL IV 40 mg, Intravenous, Daily, First dose on 05/07/25 at 1015, Until Discontinued, Reconstitute each 40 mg vial with 10 mL normal saline to a final concentration of 4 mg/mL. Administer intravenously over a period of a least 2 minutes. 0844 (Given - Provider: Graciela Farley RN) 1003 (Given - Provider: Elis Montana RN) 0835 (Given - Provider: Lupe West RN) polyethylene glycol (GLYCOLAX) packet 1 packet 1 packet, Oral, Daily, First dose on Fri05/08/25 at 0930, Until Discontinued, Dissolve entire packet in 240 mL of water 0844 (Given - Provider: Graciela Farley RN) 1003 (Given - Provider: Elis Montana RN) 0818 (Given - Provider: Florentin Aguilar LPN) rOPINIRole (REQUIP) tablet 0.5 mg 0.5 mg, Oral, Nightly at bedtime, First dose on 05/09/25 at 2100, Until Discontinued 2046 (Given - Provider: Erwin Velazquez RN) 2021 (Given - Provider: Nancy Mello LPN) 2100 (Due) PRN Medication Order 05/09/2025 05/10/2025 05/11/2025 albuterol sulfate HFA 108 (90 Base) MCG/ACT inhaler 2 puff 2 puff, Inhalation, Every 6 hours PRN, Wheezing, Starting on Fri05/09/25 at 0908, Until Discontinued benzocaine 20 % (HURRICAINE) mouth solution 1 spray 1 spray, Mouth/Throat, 4 times daily PRN, Pain, Starting on Fri05/04/25 at 1623, Until Discontinued, Do NOT recommend use for teething & mouth pain in infants & children under 2 years. butalbital-acetaminophen -caffeine (ESGIC) tablet 1 tablet (CANCELED) 1 tablet, Oral, Every 6 hours PRN, Headaches, Starting on Fri05/08/25 at 1108, Until Fri05/09/25 at 0929, Maximum dose of acetaminophen is 4000 mg from all sources in 24 hours. 0847 (Given - Provider: Graciela Farley RN) dextrose (GLUTOSE) 40 % oral gel 37.5-75 g 37.5-75 g (15-30 g of dextrose), Oral, As needed, Low blood sugar, Starting on Rosaline 05/05/25 at 1940, Until Discontinued, If patient is verbally responsive and taking thickened liquids or oral medications: Blood glucose less than 50 mg/dL - give 30 g of dextrose; repeat until blood glucose reaches 70 mg/dL Blood glucose 50-69 mg/dL - give 15 g of dextrose; repeat until blood glucose reaches 70 mg/dL 37.5 g of glucose gel = 15 g of dextrose dextrose 10 % bolus infusion 125-250 mL 125-250 mL, Intravenous, Administer over 15 Minutes, As needed, Low Blood Sugar, Starting on Rosaline 05/05/25 at 1940, Until Discontinued, If patient is verbally responsive and NPO or unable to swallow: Blood glucose less than 50 mg/dL - give 250 mL (25 g) and repeat until blood glucose reaches 70 mg/dL Blood glucose 50-69 mg/dL - give 125 mL (12.5 g) and repeat until blood glucose reaches 70 mg/dL If patient is verbally Unresponsive and NPO or unable to swallow: Blood glucose less than 70 mg/dL - give 250 mL (25 g), repeat until blood glucose reaches 70 mg/dL glucagon injection 1 mg 1 mg, Intramuscular, Once as needed, Other, Low blood sugar, 1 dose, Starting on Rosaline 05/05/25 at 1940, Until Discontinued, If patient is verbally UNresponsive and no IV access with blood glucose less than 70 mg/dL. Do NOT repeat administration. hydrALAZINE (APRESOLINE) injection 10 mg 10 mg, Intravenous, Every 6 hours PRN, Other, SBP >170, Starting on Rosaline 05/05/25 at 1352, Until Discontinued, Monitor HR and BP before dose and 15 min after IV dose. For IV push give over 1-2 minutes=5mg/min. 2138 (Given - Provider: Erwin Velazquez, FARTUN) HYDROcodone-acetaminophe n (NORCO) 5-325 MG tablet 1 tablet (CANCELED) 1 tablet, Oral, Every 6 hours PRN, Moderate pain (Scale 4 - 7), Starting on 05/09/25 at 0929, Until Fri05/11/25 at 0959, Maximum dose of acetaminophen is 4000 mg from all sources in 24 hours. 1108 (Given - Provider: Deborah Stokes, Nurse Student)1907 (Given - Provider: Graciela Farley RN)2250 (Given - Provider: Erwin Velazquez RN) 0609 (Given - Provider: Erwin Velazquez RN)1344 (Given - Provider: Graciela Farley RN)202 (Given - Provider: Nancy Mello LPN) 0627 (Given - Provider: Nancy Mello LPN) influenza vaccine (FLUZONE) injection 0.5 mL (COMPLETED) 0.5 mL, Intramuscular, Prior to discharge, Other, 1 dose, Starting on Fri05/04/25 at 1557, Until Fri05/11/25 at 1412, Please give vaccine prior to discharge. 1412 (Given - Provider: Lupe West RN) ipratropium-albuterol (DUONEB) 0.5-2.5 (3) MG/3ML nebulizer solution 3 mL 3 mL, Nebulization, Every 6 hours PRN, Shortness of breath, Starting on Fri05/04/25 at 1444, Until Discontinued ketorolac (TORADOL) injection 15 mg 15 mg, Intravenous, Every 6 hours PRN, Moderate pain (Scale 4 - 7), Starting on 05/07/25 at 0946, Until Rosaline 05/12/25 at 0945, For IV administration, give over 15 seconds. 0050 (Given - Provider: Lucero Stallworth RN)0843 (Given - Provider: Graciela Farley RN)1610 (Given - Provider: Grcaiela Farley RN) 0450 (Given - Provider: Erwin Velazquez RN)1839 (Given - Provider: Graciela Farley RN) 0052 (Given - Provider: Erwin Velazquez RN)1245 (Given - Provider: Lupe West RN) LORazepam (ATIVAN) injection 0.5 mg (CANCELED) 0.5 mg, Intravenous, Every 4 hours PRN, Anxiety, Starting on Fri05/04/25 at 1332, Until Fri05/09/25 at 0929, For IV use, further dilute with an equal volume of saline. Do not exceed a rate of 2 mg/min. 0049 (Given - Provider: Lucero Stallworth RN)0430 (Given - Provider: Lucero Stallworth RN)0843 (Given - Provider: Graciela Farley RN) LORazepam (ATIVAN) tablet 0.5 mg 0.5 mg, Oral, Every 4 hours PRN, Anxiety, Starting on Fri05/09/25 at 0929, Until Discontinued 1418 (Given - Provider: Deborah Stokes, Nurse Student)1907 (Given - Provider: Graciela Farley RN) 0701 (Given - Provider: Erwin Velazquez RN)1344 (Given - Provider: Graciela Farley RN)1839 (Given - Provider: Graciela Farley RN) 0205 (Given - Provider: Erwin Velazquez RN)0627 (Given - Provider: Nancy Mello LPN)1252 (Given - Provider: Florentin Aguilar LPN) morphine injection 4 mg (CANCELED) 4 mg, Intravenous, Every 3 hours PRN, Severe pain (Scale 8 - 10), Starting on Fri05/07/25 at 0838, Until Fri05/09/25 at 0929 0300 (Given - Provider: Chantelle Palacio RN)0656 (Given - Provider: Lucero Stallworth RN) naLOXone (NARCAN) injection 0.4 mg 0.4 mg, Intravenous, As needed, Opioid reversal, Starting on Fri05/04/25 at 1332, Until Discontinued, IM administration: Anterolateral aspect of thigh normal saline 0.9 % flush 3-10 mL 3-10 mL, Intravenous, As needed, Line care, Starting on Fri05/04/25 at 1000, Until Discontinued ondansetron (ZOFRAN) injection 4 mg 4 mg, Intravenous, Every 8 hours PRN, Nausea, Vomiting, Starting on Fri05/04/25 at 1329, Until Discontinued, IV push over 2-5 minutes. 1906 (Given - Provider: Graciela Farley, FARTUN) 0450 (Given - Provider: Erwin Velazquez, FARTUN) saline enema adult (FLEET) 7-19 GM/118ML enema 1 enema 1 enema, Rectal, Daily as needed, Constipation, pSBO, Starting on Fri05/06/25 at 0941, Until Discontinued, Give fleet enema through red rubber catheter in stoma. Keep one side of red rubber catheter clipped to bag to prevent removal. Go through bottom of bag and give enema through red rubber catheter. Peristalsis may push the catheter out a bit, gently twist catheter and push in with peristalsis. Halo resident if catheter comes completely out and you are not able to replace it. Thanks! Linked Groups Order Group 1: enoxaparin (LOVENOX) 40 MG/0.4ML syringe 40 mgJump to med 40 mg, Subcutaneous, Nightly (enoxaparin), First dose on Fri05/04/25 at 2100, Until Discontinued, Administer by deep SubQ injection alternating between the left or right anterolateral and left or right posterolateral abdominal wall. And Moderate Risk for VTE (COMPLETED) documented in this encounter Care Teams Spray Technician Relationship Specialty Start Date End Date [place]aldDO [address] [place] [id number] PCP - General FAMILY PRACTICE 12/07/22 Uziel Ford MD INTERNAL MEDICINE 07/17/18 documented as of this encounter
[2025-05-11 16:30] VITALS: O2SAT 100
--- OUTSIDE RECORDS SUMMARY | 2025-05-11 16:33 | XMS_ITS | Encounter Summary ---
Author Organization [facility] Address [address] [place] [address] Care Team Providers Care House Registry Rn Name Role Phone Uziel Ford MD Unavailable [phone] Kamron Sandra DO Primary Care Provider [phone] Encounter Details Date Type Department Care Team (Late st Contact Info) Description 12/23/2022 Hospital Follow-up Call [facility] [address] [place] [address] Lurdes Jay, RN Social History Tobacco Use Types Packs/Day Years Used Date Smoking Tobacco: Every Day Cigarettes 0.5 50 Started: 07/03/1969; Last attempted to quit: 07/03/2019 Smokeless Tobacco: Never Alcohol Use Standard Drinks/Week Comments No 0 (1 standard drink = 0.6 oz pure alcohol) history of alcohol use and abuse- quit in april of 2019 (would have a pint of liquor per day) Humiliation, Afraid, Rape, and Kick questionnair e Answer Date Recorded Within the last year, have y ou been afraid of your partner or ex-partner? No 12/15/2022 Within the last year, have y ou been humiliated or emotionally abused in other ways by your partner or ex-partner? No Within the last year, have y ou been kicked, hit, slapped, or otherwise physically hurt by your partner or ex-partner? No 12/15/2022 Within the last year, have y ou been raped or forced to have any kind of sexual activity by your partner or ex-partner? No 12/15/2022 AUDIT-C Answer Date Recorded Frequency of Alcohol Consumption Never 07/30/2018 Average Number of Drinks Not on file 018 Frequency of Binge Drinking Not on file 07/18 Overall Financial Resource Strain (CARDIA) Answe r Date Recorded How hard is it for you to pa y for the very basics like food, housing, medical care, and heating? Not hard at all 12/15/2022 Hunger Vital Sign Answer Date Recorded Within the past 12 months, y ou worried that your food would run out before you got the money to buy more. Never true 12/16/19 23 Within the past 12 months, t he food you bought just didn't last and you didn't have money to get more. Never true 12/15/2022 PRAPARE - Transportation Answer Date Re corded In the past 12 months, has l ack of transportation kept you from medical appointments or from getting medications? No 11/18 In the past 12 months, has l ack of transportation kept you from meetings, work, or from getting things needed for daily living? No 12/15/2022 Housing Stability Vital Sign Answer Sina e Recorded In the last 12 months, was t here a time when you were not able to pay the mortgage or rent on time? No 12/15/2022 In the last 12 months, how many places have you lived? 1 12/15/2022 In the last 12 months, was t here a time when you did not have a steady place to sleep or slept in a longterm (including now)? 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 No / Unsure 12/19/2022 12:26 PM CDT documented as of this encounter Functional Status * Are you deaf or do you have serious difficulty hearing Answer Date of Assessment Author Status Yes 12/15/2022 6:41 AM LALITHAT Genesis Platt RN Active * Are you blind or do you have serious difficulty seeing, even when wearing glasses? Answer Date of Assessment Author Status No 12/15/2022 6:41 AM CDGenesis Amos RN Active * Do you have serious difficulty walking or climbing stairs? Answer Date of Assessment Author Status No 12/15/2022 6:41 AM Genesis Anderson RN Active * Do you have difficulty dressing or bathing? Answer Date of Assessment Author Status No 12/15/2022 6:41 AM Genesis Anderson RN Active * Because of a physical, mental, or emotional condition, do you have difficulty doing errands alone such as visiting a doctor's office or shopping? Answer Date of Assessment Author Status No 12/15/2022 6:41 AM Genesis Anderson RN Active documented as of this encounter Mental Status * Because of a physical, mental, or emotional condition, do you have serious difficulty concentrating, remembering, or making decisions? Answer Entry Date Author Status No 12/15/2022 6:41 AM Genesis Anderson RN Active documented in this encounter Plan of Treatment Not on file documented as of this encounter Goals Goal Patient Goal Type Associated Problems Recent Progress Patient-Stated? Author Safety Patient/family will have appropriate support at home upon discharge Lifestyle No Anjana Masters RN Safety Patient/family will have appropriate support at home upon discharge Lifestyle No Dina Casper RN documented as of this encounter Visit Diagnoses Not on filedocumented in this encounter Additional Health Concerns Infection Onset Date Last Indicated Resolved Time COVID-19 Rule Out 03/25/2023 03/25/2023 03/25/2023 1:07 PM CDT COVID-19 Rule Out 10/27/2024 10/27/2024 10/27/2024 1:20 PM CDT Respiratory Rule Out 10/27/2024 10/27/2024 025 1:21 PM CDT documented as of this encounter Care Teams House Registry Rn Relationship Specialty [place] [address] [place] [id number] PCP - General FAMILY PRACTICE 12/07/22 Uziel Ford MD INTERNAL MEDICINE 07/17/18 documented as of this encounter
--- OUTSIDE RECORDS SUMMARY | 2025-05-11 16:33 | XMS_ITS | Clinical Summary ---
Author Organization [facility] Address [address] [place] [address] Care Team Providers Care Correctional Manager Name Role Phone Uziel Ford MD Unavailable [phone] Kamron Sandra DO Primary Care Provider [phone] Allergies Active Allergy Reactions Criticality Noted Date Comments Cefaclor Rash,Swelling High 02/20/2020 Cyanoacrylate Rash Low 04/15/2021 PAPER TAPE Propoxyphene Rash Low 02/20/2020 Gabapentin Shakiness 05/04/2025 Involuntary jerking movements Tape Rash Low 02/20/2020 Pregabalin Shakiness 05/04/2025 Involuntary jerking movements Tramadol Seizure High 02/20/2020 Medications multi vitamin/mineral s tablet Take 1 tablet by mouth daily. Active prazosin (MINIPRESS) 2 MG capsule Take 1 capsule (2 mg total) by mouth 3 (three) times daily. Active cloNIDine (CATAPRES) 0.2 MG tablet Take 1 tablet (0.2 mg total) by mouth 2 (two) times daily. Active buprenorphine-n aloxone (SUBOXONE) 8-[address] 1 Film inside cheek 2 (two) times daily. Active albuterol sulfate HFA 108 (90 Base) MCG/ACT inhaler Inhale 2 puffs into the lungs every 6 (six) hours as needed for Wheezing. Active ipratropium-alb uterol (COMBIVENT RESPIMAT) 20-100 MCG/ACT inhaler Inhale 1 puff into the lungs 4 (four) times daily. Please provide assembled. Active levothyroxine (SYNTHROID) 125 MCG tablet Take 1 tablet (125 mcg total) by mouth every morning. Active escitalopram (LEXAPRO) 10 MG tablet Take 1 tablet (10 mg total) by mouth daily. Active lisinopril-hydr oCHLOROthiazide (ZESTORETIC) 20-12.5 MG tablet Take 1 tablet by mouth daily. Active alendronate (FOSAMAX) 70 MG tablet Take 1 tablet (70 mg total) by mouth every 7 days. Pt takes every friday 5 Active hydrOXYzine (ATARAX) 25 MG tablet Take 1 tablet (25 mg total) by mouth 3 (three) times daily as needed. 5 Active ENULOSE 10 GM/15ML solution Take 15 mLs (10 g total) by mouth daily. 5 Active magnesium hydroxide (MILK OF MAGNESIA) 400 MG/5ML suspension Take 30 mLs by mouth daily as needed. 5 Active montelukast (SINGULAIR) 10 MG tablet Take 1 tablet (10 mg total) by mouth daily. 5 Active ondansetron (ZOFRAN) 4 MG tablet Take 1 tablet (4 mg total) by mouth every 8 (eight) hours as needed. 5 Active pantoprazole EC (PROTONIX) 40 MG tablet Take 1 tablet (40 mg total) by mouth daily. 5 Active rOPINIRole (REQUIP) 0.5 MG tablet Take 1 tablet (0.5 mg total) by mouth nightly at bedtime. 5 Active sucralfate (CARAFATE) 1 GM/10ML suspension Take 10 mLs (1 g total) by mouth 3 (three) times daily before meals. 5 Active polyethylene glycol (GLYCOLAX) packet Take 240 mLs (17 g total) by mouth daily for 30 days. Dissolve powder in 240 mL water 30 packet 5 06/10/20 25 Active LORazepam (ATIVAN) 1 MG tabletIndicatio ns:Anxiety Take 1 tablet (1 mg total) by mouth every 6 (six) hours as needed for Anxiety. 20 tablet 5 05/04/20 25 Discontinu ed(Error) LORazepam (ATIVAN) 1 MG tabletIndicatio ns:Anxiety Take 1 tablet (1 mg total) by mouth every 8 (eight) hours as needed for Anxiety. 15 tablet 5 05/04/20 25 Discontinu ed(Error) Active Problems Problem Noted Date Diagnosed Date Small bowel obstruction, partial ([facility]/ C) 05/04/2025 Partial small bowel obstruction ([facility] ) 07/10/2024 Bowel obstruction ([facility]) 05/01/2024 Stroke-like symptoms 08/08/2023 COPD with acute exacerbation ([facility]) 0 03/25/2023 Unstable angina ([facility]) 12/15/2022 Chest pain 12/15/2022 Contusion of right wrist 04/17/2021 NSTEMI (non-ST elevated myoc ardial infarction) ([facility]) 03/31/2021 Skin-picking disorder 07/16/[address] ([facility]) 07/16/2020 Overview (07/16/2020): Apr 2019 with Diverticular Disease. Bronchitis 07/16/2020 Anxiety disorder 07/15/2020 Insect bite 07/15/2020 Nicotine abuse 07/15/2020 Abdominal wall seroma 05/23/2019 Hypothyroid 05/23/2019 Assessment & Plan (05/23/2019 12:19 PM CDT): TSH is 13 despite current dose of levothyroxine 112 mcg. Dose increased today Abdominal wall hematoma 05/22/2019 Overview (05/22/2019): 05/22/2019: Complains of severe sharp Poking pain in right lower quadrant unrelieved by her narcotics for three days getting worse. Assessment & Plan (05/25/2019 9:48 AM CDT): Very Large seroma identified on CT scan in Right Lower quadrant at stite of pain now understood to be an organizing hematoma, and probable cause for her right lower quadrant pain Nicotine addiction 05/22/2019 Colostomy status ([facility]) 05/22/2019 Anemia 05/22/2019 Overview (05/22/2019): Post op. Chronic risk. Colitis 05/02/2019 Acute constipation 05/02/2019 Leukocytosis 05/02/2019 Elevated lactic acid level 05/02/2019 COPD exacerbation ([facility]) 03/12/2019 SOBOE (shortness of breath on exertion) 07/30/20 18 Palpitations 07/30/2018 Dizziness 07/30/2018 Nonrheumatic aortic valve insufficiency 07/30/20 18 Non-rheumatic mitral regurgitation 07/30/2018 Essential hypertension 07/30/2018 Mixed hyperlipidemia 07/30/2018 Coronary artery disease 07/30/2018 Assessment & Plan (07/16/2020 8:45 AM MANAGEMENT LEAD): Hx of stents Chronic diarrhea 06/15/2018 COPD (chronic obstructive pu lmonary disease) ([facility]) Ascending aortic aneurysm Resolved Problems Problem Noted Date Diagnosed Date Resolved Date Syncope 07/14/2020 07/17/2020 Abdominal pain 07/03/2019 07/05/2019 Hypokalemia 07/03/2019 07/05/2019 Substance abuse 07/03/2019 07/05/2019 Bowel obstruction ([facility]) 05/22/2019 05/25/2019 Alcohol abuse 05/22/2019 05/25/2019 Overview (05/22/2019): By medical records history. Glucose intolerance 05/22/2019 05/27/20 19 Overview (05/22/2019): She reported sugars to 400 while on TPN and need for insulin at [facility] Post-op pain 05/22/2019 05/27/2019 E-coli UTI 05/22/2019 05/27/2019 Overview (05/22/2019): Diagnosed at [facility] finishing oral antibiotic course. Chest pain 07/30/2018 07/17/2020 Assessment & Plan (07/16/2020 8:43 AM MANAGEMENT LEAD): Chest wall pain. A family member did cpr at home with her syncopal episode. Encounter for rehabilitation 06/15/2018 05/23/2019 Encounter for preventive health examination 09/27/2013 08/31/2018 Encounters Date Type Department Care Team Description 05/10/2025 Telephone [facility] Care Management [address] [place] [address] [place] [address] Eloisa Young, cylinder batcher (Swing bed referral to [facility] from [facility]/) 05/04/2025 9:55 AM CDT - 05/11/2025 3:02 PM CDT Hospital Encounter [place] [address] [place] [address] Lucero Russ MD Dangol, MD Felicia Myers, Mumtaz Gutiérrez MD Abdominal Pain Discharge Disposition: Swing Bed 05/04/2025 Travel from Last 3 Months Immunizations Immunization Administration Dates Next Due Afluria 36 MONTHS+ (Prefille d Syringe IIV4) 05/27/2019 Fluzone (IIV3, Trivalent, 0. 5 ML Prefilled Syringe) 05/11/2025 Fluzone 6 Months+ Quad (0.5 mL Prefilled Syringe) 08/12/2023(),08/11/2023,07/18/2020 Influenza (Generic) 05/18/2016 Influenza Adult (Generic) 09/09/2022,,06/01/2018,2016,06/01/2015,05/20/2014,06/04/2013 MODERNA COVID-19 (12+) MRNA, LNP-S, PF, 100 MCG/ 0.5 ML DOSE 01/08/2021,12/15/2020 Pneumococcal (Prevnar 13) 06/04/2018 Pneumococcal (Prevnar 20) 09/09/2022 Family History Medical History Relation Comments Lung Cancer Brother COPD Daughter CHF Father Heart Attack Father Open Heart Father Stent Cardiac Father Stroke Father CHF Mother COPD Mother abdominal aortic aneurysm Mother Alcohol Abuse Son Obesity Son Relation Status Comments Brother Daughter Father Mother Son Social History Tobacco Use Types Packs/Day Years Used Date Smoking Tobacco: Former Cigarettes 0.5 50 1 09/02/1968 - 07/03/2019 Smokeless Tobacco: Never Tobacco Cessation:Counseling Given: Not Answered Alcohol Use Standard Drinks/Week Comments No 0 (1 standard drink = 0.6 oz pure alcohol) history of alcohol use and abuse- quit in april of 2019 (would have a pint of liquor per day) [facility] Utilities Answer Date Recorded In the past 12 months has e [employer], [employer], oil, or water [employer] threatened to shut off services in your [...] place to sleep or slept in a nursing home (including now)? No 08/11/2023 Housing Stability Vital Sign Answer Sina e Recorded In the last 12 months, was t here a time when you were not able to pay the mortgage or rent on time? No 05/04/2025 In the past 12 months, how m any times have you moved where you were living? 0 05/04/2025 At any time in the past 12 m [facility], were you homeless or living in a nursing home (including now)? No 05/04/2025 Comments No Sex and Gender Information Value Date Recorded Sex Assigned at Female 08/31/2018 1:03 PM MANAGEMENT LEAD Legal Sex Female 7:16 PM CDT Gender Identity Female 08/31/2018 1:03 PM MANAGEMENT LEAD Sexual Orientation Not on file Occupation Industry Job Start Date Job End Date disabled Not on file Not on file Not on file Last Filed Vital Signs Vital Sign Reading [...] Mass Index 22.34 05/04/2025 9:57 AM CDT Plan of Treatment Health Maintenance Due Date Last Done Comments ASCVD Statin 1953 Hepatitis C 1971 DTaP, Tdap and Td Vaccines (1 - Tdap) 1972 Mammogram Screening 1993 Zoster Vaccines (1 of 2) 2003 RSV Immunization or 60+ Years (1 - Risk 60-74 years 1-dose series) 2013 Annual Medicare Wellness Visit 2018 Dexa Scan (General) 2018 ASCVD LDL 08/09/2024 08/09/2023, 11/18, 03/14/2008 COVID-19 Vaccine ( season) 2025 01/08/2021, 12/15/2020 Lung Cancer Screening 12/03/2025 12/03/2024 , 06/25/2021, 04/15/2021, Additional history exists Colorectal Cancer Screening FIT/FOBT (1 Year) Discontinued 03/31/2021, 05/22/2019 Pneumococcal Vaccine: 50+ Years Completed 09/09/2022, 06/04/2018 Meningococcal B Vaccine Aged Out No l onger eligible based on patient's age to complete this topic Meningococcal Vaccine Aged Out No dylan kimberly eligible based on patient's age to complete this topic RSV Immunizations Under 20 Months Aged Out No longer eligible based on patient's age to complete this topic Goals Goal Patient Goal Type Associated Problems [...] upon discharge Lifestyle No Lucero Camacho RN Medical Devices Implanted Type Area Chief Vendor Quality Device Identifier Shelf Expiration Date Model / Serial / Lot Mesh Surgical Vicryl [id number] Absorbable Woven Flat Hernia Repair - [id number] Implanted:Qty: 1 on 05/08/2019 by Oliver Rodriguez MD at [facility] N/A: Abdomen [employer] 03/17/2023 [id number] / / [id number] Procedures Procedure Name Priority Date/Time Associated Diagnosis Comments PHOSPHORUS, INORGANIC PHOSPHATE Routine 05/11/2025 5:58 AM CDT MAGNESIUM Routine 05/11/2025 5:58 AM CDT COMPREHENSIVE METABOLIC PANEL Routine 05/11/2025 5:58 AM CDT CBC W/DIFF AUTOMATED Routine 05/11/2025 5:58 AM CDT POCT GLUCOSE [...] ABD KUB Routine 05/07/2025 6:08 AM CDT MAGNESIUM Routine 05/07/2025 4:59 AM CDT BLOOD GAS, VENOUS Routine 05/07/2025 4:5 9 AM CDT BASIC METABOLIC PANEL Routine 05/07/2025 4:59 AM CDT CBC W/DIFF AUTOMATED Routine 05/07/2025 4:59 AM CDT POCT GLUCOSE [...] CON STAT 05/04/2025 11:2 8 AM CDT URINE BACTERIA CULTURE Nurse Collected Priority 05/04/2025 10:13 AM CDT LACTIC ACID W REFLEX (SEPSIS) STAT 05/04/2025 10:13 AM CDT HC URINALYSIS AUTO W/MICRO Nurse Collected Priority 05/04/2025 10:13 AM CDT LIPASE STAT 05/04/2025 10:13 AM CDT COMPREHENSIVE METABOLIC PANEL STAT 05/04/2025 10:13 AM CDT CBC W/DIFF AUTOMATED STAT 05/04/2025 10:[address] CHEST+ABD+PEL W CON STAT 12/03/2024 11:40 PM CDT LIPID PANEL Routine 08/09/2023 4:16 AM MANAGEMENT LEAD OCCULT BLOOD, FECES STAT 03/31/2021 1 :00 AM CDT from Last 3 Months or Most Recently Relevant to Health Maintenance Results * (ABNORMAL) COMPREHENSIVE METABOLIC PANEL (05/11/2025 5:58 AM CDT) Only the most recent of2 resultswithin the time period is included. SODIUM S/P/B 140 136 - 145 MMOL/L 05/11/2025 8:06 AM CDT [facility] POTASSIUM S/P/B 3.9 3.5 - 5.1 MMOL/L 05/11/2025 8:06 AM CDT [facility] CHLORIDE S/P/B 104 97 - 115 MMOL/L 05/11/2025 8:06 AM T [facility] CO2 33.2(H) 21.0 - 32.0 MMOL/L 05/11/2025 8:06 AM T [facility] GLUCOSE 95 74 - 106 MG/DL 05/11/2025 8:06 AM T [facility] BUN 10 7 - 18 MG/DL 05/11/2025 8:06 AM T [facility] CREATININE S/P/B 0.49(L) 0.55 - 1.02 MG/DL 05/11/2025 8:06 AM T [facility] CALCIUM S/P/B 8.3(L) 8.5 - 10.1 MG/DL 05/11/2025 8:06 AM T [facility] BILIRUBIN TOTAL S/P/B 0.4 0.2 - 1.0 MG/DL 05/11/2025 8:06 AM T [facility] ALKALINE PHOSPHATASE S/P/B 41(L) 55 - 142 U/L 05/11/2025 8:06 AM T [facility] AST 10(L) 15 - 37 U/L 05/11/2025 8:06 AM T [facility] ALT 13 13 - 56 U/L 05/11/2025 8:06 AM T [facility] TOTAL PROTEIN S/P/B 5.3(L) 6.4 - 8.2 G/DL 05/11/2025 8:06 AM CDT [facility] ALBUMIN S/P/B 2.8(L) 3.4 - 5.0 G/DL 05/11/2025 8:06 AM CDT [facility] ANION GAP 2.8 2.0 - 10.0 MMOL/L 05/11/2025 8:06 AM CDT [facility] OSMOLALITY (CALC) 289 MOSM/KG 025 8:06 AM CDT [facility] Comment:REFERENCE RANGE NOT ESTABLISHED GFR ESTIMATE >90 >90 ML/MIN/1. 73 M2 05/11/2025 8:06 AM CDT [facility] GFR NOTES GFR REFERENCE S: 05/11/2025 8:06 AM T [facility] Comment: THE ESTIMATED GFR IS CALCULATED [...] m2 05/11/2025 5:58 AM CDT us Mumtaz Duarte MD LABORATORY Final Result [facility] [address] [place] [address], [id number] * (ABNORMAL) CBC W/DIFF AUTOMATED (05/11/2025 5:58 AM CDT) Only the most recent of8 resultswithin the time period is included. WBC 6.83 4.00 - 10.80 x10'3/uL 05/11/2025 6:28 AM CDT [facility] RBC 3.10(L) 4.10 - 5.40 x10'6/uL 05/11/2025 6:28 AM CDT [facility] HGB 9.3(L) 12.0 - 16.0 G/DL 05/11/2025 6:28 AM CDT [facility] HCT 29.6(L) 36.0 - 47.0 % 05/11/2025 6:28 AM CDT [facility] MCV 95.5 78.0 - 100.0 FL 05/11/2025 6:28 AM CDT [facility] MCH 30.0 27.0 - 31.0 PG 05/11/2025 6:28 AM CDT [facility] MCHC 31.4(L) 33.0 - 36.0 G/DL 05/11/2025 6:28 AM CDT [facility] RDW 14.5 11.5 - 14.5 % 05/11/2025 6:28 AM CDT [facility] PLT 198 150 - 350 x10'3/uL 05/11/2025 6:28 AM CDT [facility] MPV 9.7 7.4 - 10.4 FL 05/11/2025 6:28 AM CDT [facility] DIFFERENTIAL TYPE AUTOMATED DIFFERENTIAL 05/11/2025 6:28 AM CDT [facility] SEG NEUTROPHILS 67.7 % 6:28 AM CDT [facility] LYMPHOCYTES 16.3 % 05/11/2025 6:28 AM CDT [facility] MONOCYTES 9.2 % 05/11/2025 6:28 AM CDT [facility] EOSINOPHILS 5.9 % 05/11/2025 6:28 AM CDT [facility] BASOPHILS 0.6 % 05/11/2025 6:28 AM CDT [facility] IMMATURE GRANS % 0.3 % 05/11/20 6:28 AM CDT [facility] ABS. NEUTROPHILS 4.63 1.60 - 8.30 x10'3/uL 05/11/2025 6:28 AM CDT [facility] ABS. LYMPHOCYTES 1.11 0.80 - 4.70 x10'3/uL 05/11/2025 6:28 AM CDT [facility] ABS. MONOCYTES 0.63 0.00 - 1.50 x10'3/uL 05/11/2025 6:28 AM CDT [facility] ABS. EOSINOPHILS 0.40 0.00 - 0.40 x10'3/uL 05/11/2025 6:28 AM CDT [facility] ABS. BASOPHILS 0.04 0.00 - 0.20 x10'3/uL 05/11/2025 6:28 AM CDT [facility] ABS. IMMATURE GRANULOCYTES 0.02 0.00 - 0.03 x10'3/uL 05/11/2025 6:28 AM CDT [facility] ABS. NUCLEATED RBC'S 0.00 0.00 - 0.01 x10'3/uL 05/11/2025 6:28 AM CDT [facility] NRBC % 0.0 % 05/11/2025 6:28 AM CDT [facility] 05/11/2025 5:58 AM CDT us Mumtaz Duarte MD LABORATORY Final Result [facility] [address] [place] [address], [phone] * PHOSPHORUS, INORGANIC PHOSPHATE (05/11/2025 5:58 AM CDT) PHOSPHORUS 3.4 2.5 - 4.9 MG/DL 05/11/2025 8:06 AM CDT [facility] 05/11/2025 5:58 AM CDT Mumtaz Duarte MD LABORATORY Final Result Performing Organization Address [facility] Co de Phone Number [facility] [address] [place] [address], [phone] * MAGNESIUM (05/11/2025 5:58 AM CDT) Only the most recent of2 resultswithin the time period is included. MAGNESIUM 1.8 1.6 - 2.6 MG/DL 05/11/2025 8:06 AM CDT [facility] 05/11/2025 5:58 AM CDT Mumtaz Duarte MD LABORATORY Final Result Performing Organization Address [facility] de Phone Number [facility] [address] [place] [address], [place] [phone] * POCT glucose (05/10/2025 6:03 AM CDT) Only the most recent of21 resultswithin the time period is included. GLUCOSE POC 102 70 - 109 05/10/2025 6:35 AM CDT [facility] Comment:RN Notified 05/10/2025 6:03 AM CDT Fredis Navarro MD POCT ORDERABLES - DEVICE Fin al Result Performing Organization Address [facility] Co de Phone Number [facility] [address] [place] [address], [phone] * (ABNORMAL) BASIC METABOLIC PANEL (05/10/2025 5:37 AM CDT) Only the most recent of5 resultswithin the time period is included. SODIUM S/P/B 143 136 - 145 MMOL/L 05/10/2025 6:02 AM T [facility] POTASSIUM S/P/B 3.8 3.5 - 5.1 MMOL/L 05/10/2025 6:02 AM [facility] CHLORIDE S/P/B 107 97 - 115 MMOL/L 05/10/2025 6:02 AM [facility] CO2 34.1(H) 21.0 - 32.0 MMOL/L 05/10/2025 6:02 AM [facility] GLUCOSE 95 74 - 106 MG/DL 05/10/2025 6:02 AM [facility] BUN 11 7 - 18 MG/DL 05/10/2025 6:02 AM [facility] CREATININE S/P/B 0.47(L) 0.55 - 1.02 MG/DL 05/10/2025 6:02 AM [facility] CALCIUM S/P/B 8.3(L) 8.5 - 10.1 MG/DL 05/10/2025 6:02 AM [facility] ANION GAP 1.9(L) 2.0 - 10.0 MMOL/L 05/10/2025 6:02 AM [facility] OSMOLALITY (CALC) 295 MOSM/KG 025 6:02 AM [facility] Comment:REFERENCE RANGE NOT ESTABLISHED GFR ESTIMATE >90 >90 ML/MIN/1. 73 M2 05/10/2025 6:02 AM [facility] GFR NOTES GFR REFERENCE S: 05/10/2025 6:02 AM [facility] Comment: THE ESTIMATED GFR IS [...] <15 ml/min/1.73 m2 05/10/2025 5:37 AM CDT us Fredis Navarro MD LABORATORY Final Result Performing Organization Address [facility] Co de Phone Number [facility] [address] [place] [address], [place] [phone] * LACTIC ACID W REFLEX (SEPSIS) (05/07/2025 9:40 AM CDT) Only the most recent of2 resultswithin the time period is included. LACTIC ACID VENOUS 0.8 0.4 - 2.0 MMOL/L 05/07/2025 10:22 AM CDT [facility] 05/07/2025 9:40 AM CDT us Fredis Navarro MD LABORATORY Final Result Performing Organization Address [facility] de Phone Number [facility] [address] [place] [address], [place] [phone] * XR ABD KUB (05/07/2025 6:08 AM CDT) Anatomical Region Laterality Modality Abdomen Radiographic Rhoda ging 05/07/2025 7:17 AM CDT Impressions 05/07/2025 7:18 AM CDT IMPRESSION: No acute findings Ordered By: IQRA DE JESUS Interpreted By: David Delcid MD, 05/07/2025 7:17 AM Narrative 05/07/2025 7:18 AM CDT [address] [place], [place] [address] 1 VIEW(s) OF THE ABDOMEN History: Obstruction Comparison:February 20, 2020 A single view of the abdomen demonstrates a grossly normal bowel gas pattern. No pathologic intra-abdominal calcifications are seen. A nonspecific catheter overlies the left lower quadrant of the abdomen. There is no indication of free intraperitoneal air Procedure Note David Delcid MD - 05/07/2025 [facility] [address] [place], [place] [address] 1 VIEW(s) OF THE ABDOMEN History: Obstruction Comparison:February 20, 2020 A single view of the abdomen demonstrates a grossly normal bowel gaspattern. No pathologic intra-abdominal calcifications are seen. Anonspecific catheter overlies the left lower quadrant of the abdomen.There is no indication of free intraperitoneal air IMPRESSION: No acute findings Ordered By: IQRA DE JESUS Interpreted By: David Delcid MD, 05/07/2025 7:17 AM us Iqra De Jesus DO GENERAL IMAGING Final Result * (ABNORMAL) Blood gas, venous (05/07/2025 4:59 AM CDT) PH VENOUS 7.35 7.32 - 7.43 05/07/2025 5:44 AM CDT [facility] PCO2 VENOUS 66.0 MMHG 05/07/2025 5:44 AM CDT [facility] Comment:NO REFERENCE RANGE H BEEN ESTABLISHED PO2 VENOUS 69.0 MM HG 05/07/2025 5:44 AM CDT [facility] Comment:NO REFERENCE RANGE H BEEN ESTABLISHED TOTAL CO2 VENOUS 38.4(H) 22.0 - 26.0 MMOL/L 05/07/2025 5:44 AM CDT [facility] BASE EXCESS VENOUS 8.3 MMOL/L 05/07/2025 5:44 AM CDT [facility] Comment:NO REFERENCE RANGE H BEEN ESTABLISHED O2 SAT VENOUS 93 % 05/07/2025 5:44 AM CDT [facility] Comment:NO REFERENCE RANGE H BEEN ESTABLISHED BICARB VENOUS 36.4(H) 22.0 - 29.0 MMOL/L 05/07/2025 5:44 AM CDT [facility] OXYGEN STATUS yes 05/07/2025 4:59 AM CDT [facility] 05/07/2025 4:59 AM CDT Fredis Navarro MD LABORATORY Final Result [facility] [address] [place] [address], [phone] * XR CHEST PORTABLE (05/05/2025 7:10 PM [...] 10:13 PM Narrative 05/05/2025 10:15 PM CDT [facility] [address] [place], [place] [address] Examination: Chest x-ray 1 view Exam Date/Time: [...] Procedure Note Rio Lance MD - 05/05/[address] [address] Examination: Chest x-ray 1 view Exam Date/Time: [...] Jesus DO GENERAL IMAGING Final Result * CT ABD+PEL W IV CON ONLY [...] 11:46 AM Narrative 05/04/2025 12:04 PM CDT [address] [address] EXAMINATION: CT ABDOMEN/PELVIS WITH CONTRAST INDICATION: Abdominal [...] Procedure Note Mike Mirza MD - 05/04/2025 [place] [address] EXAMINATION: CT ABDOMEN/PELVIS WITH CONTRAST INDICATION: Abdominal [...] By: Mike Mirza MD, 05/04/2025 11:46 AM Lucero Russ MD CT Final Result * URINALYSIS (05/04/2025 10:13 AM CDT) COLOR (U) COLORLESS 05/04/2025 10:45 AM CDT [facility] TRANSPARENCY CLEAR 05/04/2025 10:45 AM CDT [facility] SPECIFIC GRAVITY (U) 1.006 1.002 - 1.035 05/04/2025 10:45 AM CDT [facility] U PH 6.0 5 - 8 05/04/2025 10:45 AM CDT [facility] PROTEIN RANDOM (U) NEGATIVE NEGATIVE 05/04/2025 10:45 AM CDT [facility] GLUCOSE (U) NEGATIVE NEGATIVE MG/DL 05/04/2025 10:45 AM CDT [facility] KETONES MG/DL (U) NEGATIVE NEGATIVE 05/04/2025 10:45 AM CDT [facility] BILIRUBIN (U) NEGATIVE NEGATIVE 05/04/2025 10:45 AM CDT [facility] BLOOD (U) NEGATIVE NEGATIVE 05/04/2025 10:45 AM CDT [facility] NITRITES NEGATIVE NEGATIVE 05/04/2025 10:45 AM CDT [facility] UROBILINOGEN NORMAL 0 - 1 EU/DL 05/04/2025 10:45 AM CDT [facility] LEUKOCYTES (U) NEGATIVE NEGATIVE 05/04/2025 10:45 AM CDT [facility] RBC/HPF <1 0 - 3 /HPF 05/04/2025 10:45 AM CDT [facility] WBC/HPF NONE 0 - 6 /HPF 05/04/2025 10:45 AM CDT [facility] BACTERIA (U) NONE /HPF 05/04/2025 10:45 AM CDT [facility] URINE SPECIMEN OBTAINED BY CLEAN CATCH PROCEDURE / Unknown 05/04/2025 10:13 AM CDT us Lucero Russ MD URINE ORDERABLES Final Result Performing Organization Address [facility] Co de Phone Number [facility] [address] [place] [address], [place] [phone] * CULTURE URINE (05/04/2025 10:13 AM CDT) SPEC DESCRIPTION URINE CLEAN CATCH 05/04/2025 10:13 AM CDT [facility] SPECIAL REQUESTS NO SPECIAL REQUEST 05/04/2025 10:13 AM CDT [facility] CULTURE RESULT NO GROWTH (< OR = 1,000 CFU/ML) 05/05/2025 12:00 PM CDT [facility] URINE SPECIMEN OBTAINED BY CLEAN CATCH PROCEDURE / Unknown 05/04/2025 10:13 AM CDT 05/04/2025 10:41 AM CDT us Lucero Russ MD MICROBIOLOGY - GENERAL ORDERABL ES Final Result Performing Organization Address [facility] Phone Number [facility] [address] [place] [address], [id number] * LIPASE (05/04/2025 10:13 AM CDT) LIPASE 24 13 - 75 UNITS/L 05/04/2025 11:09 AM CDT [facility] 05/04/2025 10:1 3 AM CDT us Lucero Russ MD LABORATORY Final Result Performing Organization Address [facility] Co de Phone Number [facility] [address] [place] [address], [place] [phone] * CT CHEST+ABD+PEL W CON (12/03/2024 11:40 PM CDT) Anatomical Region Laterality Modality Chest, Abdomen, Pelvis Computed Tomography 12/03/2024 11:4 5 PM CDT Impressions 12/04/2024 12:25 AM CDT IMPRESSION: 1. No acute appearing abnormalities are identified within the chest, abdomen, or pelvis. 2. There are multiple areas of abnormal enhancement within the spleen. This is indeterminate. Further evaluation with MRI of the abdomen with/without contrast is recommended on a nonemergent basis within the near future. 3. There is a left lower abdominal hernia containing portions of the colon and small bowel. This is nonobstructed. This is adjacent to and involves the left lower quadrant colostomy. 4. Large stool burden suggestive of constipation. No visible colonic or enteric inflammatory changes. Referred By: Interpreted By: Richard Gregory DO, 12/03/2024 11:45 PM Narrative 12/04/2024 12:25 AM CDT [address] [place] [address] EXAMINATION: CT chest/abdomen/pelvis with contrast HISTORY: Sepsis. COMPARISON: Chest x-ray 10/27/2024. CT abdomen/pelvis 07/10/2024. TECHNIQUE: Axial CT images of the chest, abdomen, and pelvis after the uneventful intravenous administration of 93 mL of Isovue-370 given through the right antecubital fossa. Sagittal and coronal reformatted image sets. A dose lowering technique was used for this procedure, which may include, but is not limited to, dose reduction technique, automated exposure control, the use of degenerative reconstruction, and ALARA/image gently techniques. FINDINGS: Chest: There are linear areas of atelectasis within the lungs bilaterally. No evidence of pneumonia, pleural effusion, or pneumothorax. Tiny benign nodule within the upper left lung. No acute-appearing pulmonary abnormalities. The heart is normally sized. There are coronary artery calcifications. There are cardiac valvular calcifications. No pneumomediastinum. No mediastinal or hilar lymphadenopathy. There is atherosclerotic calcification of the aorta. There is no axillary lymphadenopathy. No acute appearing extrathoracic soft tissue abnormalities. Abdomen/pelvis: The liver is normal in size and contour. No evidence of hepatic mass. The hepatic and portal veins are patent. No radiopaque gallstones. No biliary ductal dilatation. No visible acute pancreatic abnormalities. The spleen is normally sized. There are multiple areas of abnormal enhancement within the spleen. This is indeterminate. Further evaluation with MRI of the abdomen with/without contrast is recommended. This can be performed on a nonemergent basis within the near future. No visible adrenal masses. The kidneys enhance symmetrically. No hydronephrosis or nephrolithiasis. No evidence of renal inflammation. There are simple benign-appearing bilateral renal cysts, no imaging follow-up is necessary per consensus criteria. There is atherosclerotic calcification of the abdominal aorta which remains normal caliber. No retroperitoneal lymphadenopathy. No ascites or free intraperitoneal air. No bowel obstruction. There is a left lower abdominal hernia containing portions of the colon and small bowel. This is nonobstructed. This is adjacent to and involves the left lower quadrant colostomy. Postsurgical findings of partial colectomy. Fat-containing hernia near the umbilicus. There is a large stool burden suggestive of constipation. No visible colonic or enteric inflammatory changes. No acute appearing gastric abnormalities. No bladder wall thickening. There are pelvic phleboliths. No free pelvic fluid. Small bilateral fat-containing inguinal hernias. Osseous: There are multiple old healed rib fractures. There are multilevel degenerative changes throughout the spine. No acute osseous abnormalities are identified. Stable chronic L3 compression fracture. Mild thoracolumbar scoliosis. Procedure Note Richard Gregory DO - 12/04/[address] [place] [address] EXAMINATION: CT chest/abdomen/pelvis with contrast HISTORY: Sepsis. COMPARISON: Chest x-ray 10/27/2024. CT abdomen/pelvis 07/10/2024. TECHNIQUE: Axial CT images of the chest, abdomen, and pelvis after the uneventfulintravenous administration of 93 mL of Isovue-370 given through the rightantecubital fossa. Sagittal and coronal reformatted image sets. A dose lowering technique was used for this procedure, which may include,but is not limited to, dose reduction technique, automated exposurecontrol, the use of degenerative reconstruction, and ALARA/image gentlytechniques. FINDINGS: Chest: There are linear areas of atelectasis within the lungs bilaterally.No evidence of pneumonia, pleural effusion, or pneumothorax. Tiny benignnodule within the upper left lung. No acute-appearing pulmonaryabnormalities. The heart is normally sized. There are coronary artery calcifications.There are cardiac valvular calcifications. No pneumomediastinum. Nomediastinal or hilar lymphadenopathy. There is atheroscleroticcalcification of the aorta. There is no axillary lymphadenopathy. Noacute appearing extrathoracic soft tissue abnormalities. Abdomen/pelvis: The liver is normal in size and contour. No evidence ofhepatic mass. The hepatic and portal veins are patent. No radiopaquegallstones. No biliary ductal dilatation. No visible acute pancreaticabnormalities. The spleen is normally sized. There are multiple areas ofabnormal enhancement within the spleen. This is indeterminate. Furtherevaluation with MRI of the abdomen with/without contrast is recommended.This can be performed on a nonemergent basis within the near future. Novisible adrenal masses. The kidneys enhance symmetrically. Nohydronephrosis or nephrolithiasis. No evidence of renal inflammation.There are simple benign- appearing bilateral renal cysts, no imagingfollow-up is necessary per consensus criteria. There is atherosclerotic calcification of the abdominal aorta whichremains normal caliber. No retroperitoneal lymphadenopathy. No ascites or free intraperitoneal air. No bowel obstruction. There is aleft lower abdominal hernia containing portions of the colon and smallbowel. This is nonobstructed. This is adjacent to and involves the leftlower quadrant colostomy. Postsurgical findings of partial colectomy.Fat-containing hernia near the umbilicus. There is a large stool burdensuggestive of constipation. No visible colonic or enteric inflammatorychanges. No acute appearing gastric abnormalities. No bladder wall thickening. There are pelvic phleboliths. No free pelvicfluid. Small bilateral fat-containing inguinal hernias. Osseous: There are multiple old healed rib fractures. There aremultilevel degenerative changes throughout the spine. No acute osseousabnormalities are identified. Stable chronic L3 compression fracture.Mild thoracolumbar scoliosis. IMPRESSION: 1. No acute appearing abnormalities are identified within the chest,abdomen, or pelvis. 2. There are multiple areas of abnormal enhancement within the spleen.This is indeterminate. Further evaluation with MRI of the abdomenwith/without contrast is recommended on a nonemergent basis within thenear future. 3. There is a left lower abdominal hernia containing portions of thecolon and small bowel. This is nonobstructed. This is adjacent to andinvolves the left lower quadrant colostomy. 4. Large stool burden suggestive of constipation. No visible colonic orenteric inflammatory changes. Referred By: Interpreted By: Richard Gregory DO, 12/03/2024 11:45 PM Nilesh Blake MD CT Final Result * LIPID PANEL (08/09/2023 4:16 AM MANAGEMENT LEAD) Pathologist [facility] CHOLESTEROL 175 MG/DL 08/09/2023 5:05 AM MANAGEMENT LEAD [facility] Comment:DESIRABLE: <200 TRIGLYCERIDES 58 MG/DL 08/09/2023 5:05 AM [facility] Comment:<150 NORMAL HDL 55 >49 MG/DL 08/09/2023 5:05 AM MANAGEMENT LEAD [facility] LDL (CALCULATED) 108 MG/DL 08/09/20 5:05 AM [facility] Comment:100-129 NEAR OR ABOV E OPTIMAL VLDL CALCULATION 12 MG/DL 08/09/20 5:05 AM [facility] Comment:REFERENCE RANGE NOT ESTABLISHED CHOL/HDL RATIO 3.2 08/09/2023 5:05 AM [facility] Comment:REFERENCE RANGE NOT ESTABLISHED LDL/HDL 2.0 08/09/2023 5:05 AM MANAGEMENT LEAD [facility] Comment:REFERENCE RANGE NOT ESTABLISHED NON HDL CHOLESTEROL 120 MG/DL 08/09/2023 5:05 AM [facility] Comment:REFERENCE RANGE NOT ESTABLISHED 08/09/2023 4:16 AM MANAGEMENT LEAD Cory Goldberg MD LABORATORY Final Result [facility] [address] [place] [address], [id number] * OCCULT BLOOD, FECES (03/31/2021 1:00 AM CDT) OCCULT BLOOD FECAL NEGATIVE NEGATIVE 03/31/2021 2:51 AM CDT [facility] STOOL SPECIMEN / Unknown 03/31/2021 1:00 AM CDT us Nilesh Blake MD BODY FLUIDS AND STOOLS ORDERA BLES Final Result [facility] [address] [place] [address], from Last 3 Months or Most Recently Relevant to Health Maintenance Insurance MEDICAID [employer]ET[employer] Advance Directives Documents on File Type Date Recorded Patient 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 Expl anation Advance Directives and Living Will 05/03/2019 11:44 AM short form poa for health care * Full Code (Latest Code Status on File) Date Activated Date Inactivated Comments 05/04/2025 1:33 PM * Full Code Date Activated Date Inactivated Comments 07/10/2024 6:57 PM 07/16/2024 6:58 PM * Full Code Date Activated Date Inactivated Comments 05/04/2024 9:01 AM 05/09/2024 5:55 PM * Full Code Date Activated Date Inactivated Comments 08/08/2023 4:55 PM 08/12/2023 6:15 PM * Full Code Date Activated Date Inactivated Comments 12/19/2022 1:57 PM 12/21/2022 8:49 PM Care Teams Correctional Manager Relationship Specialty [place] [address] [place] [address] PCP - General FAMILY PRACTICE 12/07/22 Uziel Ford MD INTERNAL MEDICINE 07/17/18
--- OUTSIDE RECORDS SUMMARY | 2025-05-11 16:33 | XMS_ITS | Encounter Summary ---
Author Organization [facility] Address [address] [place] [address] Care Team Providers Care Vocational Ed Instructor Name Role Phone Uziel Ford MD Unavailable [phone] Kamron Sandra DO Primary Care Provider [phone] Reason for Visit * Reason Onset Date Comments Referral 05/10/2025 Swing bed referr al to [facility] from [facility] Encounter Details Date Type Department Care Team (Late st Contact Info) Description 05/10/2025 Telephone [facility] Care Management [address] [place] [address] [place] [address] Eloisa Young, RN Referral (Swing bed referral to [facility] from [facility]/) Social History Tobacco Use Types Packs/Day Years Used Date Smoking Tobacco: Former Cigarettes 0.5 50 1 09/02/1968 - 07/03/2019 Smokeless Tobacco: Never Alcohol Use Standard Drinks/Week Comments No 0 (1 standard drink = 0.6 oz pure alcohol) history of alcohol use and abuse- quit in april of 2019 (would have a pint of liquor per day) [facility] Utilities Answer Date Recorded In the past 12 months has [employer] electric, gas, oil, or water company threatened to shut off services in your [...] place to sleep or slept in a senior care (including now)? No 08/11/2023 Housing Stability Vital Sign Answer Sina e Recorded In the last 12 months, was t here a time when you were not able to pay the mortgage or rent on time? No 05/04/2025 In the past 12 months, how m any times have you moved where you were living? 0 05/04/2025 At any time in the past 12 m [facility], were you homeless or living in a senior care (including now)? 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 Answer Date of Assessment Author Status No 05/04/2025 3:53 PM CDT Leigh Ann Fairchild RN Active * Do you have difficulty dressing or bathing? Answer Date of Assessment Author Status No 05/04/2025 3:53 PM CDT Leigh Ann Fairchild, RN Active * Because of a physical, mental, or emotional condition, do you have difficulty doing errands alone such as visiting a doctor's office or shopping? Answer Date of Assessment Author Status No 05/04/2025 3:53 PM LALITHAT Leigh Ann Fairchild RN Active documented as of this encounter Mental Status * Because of a physical, mental, or emotional condition, do you have serious difficulty concentrating, remembering, or making decisions? Answer Entry Date Author Status No 05/04/2025 3:53 PM LALITHAT Leigh Ann Fairchild RN Active documented in this encounter Progress Notes * Eloisa Young RN - 05/11/2025 8:01 AM CDT 0801: Nurse noted that therapy notes were in and did rec SB. Nurse did send to team for review. 1316: Nurse was going to [facility] back to team to see if accepted but looked at charted and noted Pt had bee accepted to [facility] and [facility] was approved. Nurse informed SFL to disregard referral it willbe closed. * Eloisa Young RN - 05/10/2025 2:35 PM CDT 1422: CM messaged and said Pt is med ready [id number]: [facility] received referral for services. The below was obtained for review: Insurance: [employer] [facility] Skilled need that qualifies for SWB: PT/OT DEANNA: Med ready Barriers: No sig barrirs Final d/c plans: Lives with Son and Son's girlfriend Referral Info: Pt came in on 05/04 with abdominal pain. Pt has a history of bowel obstruction statuspost sigmoid colectomy and end colostomy, recurrent partial [...] partial small bowel obstruction, a reducible hernia. Surgery was consulted and they recommended no surgery and NG tube with LIS. Pt did end up pulling it out on 05/06 and red rubber was placed in stoma with enema. However the red rubber fell out the following day. Nurse noted no therapy notes are in at this time. Nurse will continue to follow. documented in this encounter Plan of Treatment Not on file documented as of this encounter Goals Goal Patient Goal Type Associated Problems Recent Progress Patient-Stated? Author Safety Patient/family will have appropriate support at home upon discharge Lifestyle No Anjana Masters RN Safety Patient/family will have appropriate support at home upon discharge Lifestyle No Dina Casper rubber curer - family caregiver with be involved in care transitions and discharge planning Lifestyle No Lucero Camacho RN Safety Patient/family will have appropriate support at home upon discharge Lifestyle No Doug, Lucero V, RN documented as of this encounter Visit Diagnoses Not on filedocumented in this encounter Care Teams Vocational Ed Instructor Relationship Specialty [place] [address] [place] [address] PCP - General FAMILY PRACTICE 12/07/22 Uziel Ford MD INTERNAL MEDICINE 07/17/18 documented as of this encounter
--- OUTSIDE RECORDS SUMMARY | 2025-05-11 16:33 | XMS_ITS | Encounter Summary ---
Author Organization [facility] Address [address] [place] [address] Care Team Providers Care Automobile Service Advisor Name Role Phone Uziel Ford MD Unavailable [phone] Kamron Sandra DO Primary Care Provider [phone] Encounter Details Date Type Department Care Team (Late st Contact Info) Description 12/23/2022 Hospital Follow-up Call [facility] Cardiovascular Care Unit [address] [place] [address] Lurdes Jay, RN Social History [...] place to sleep or slept in a assisted (including now)? No 12/15/2022 Comments No Sex and Gender Information Value Date Recorded Sex Assigned at Female 08/31/2018 1:03 PM KILN STACKER Legal Sex Female 7:16 PM CDT Gender Identity Female 08/31/2018 1:03 PM KILN STACKER Sexual Orientation Not on file Occupation Industry [...] documented as of this encounter Care Teams Automobile Service Advisor Relationship Specialty [place] [address] [place] [address] PCP - General FAMILY PRACTICE 12/07/22 Uziel Ford MD INTERNAL MEDICINE 07/17/18 documented as of this encounter
--- OUTSIDE RECORDS SUMMARY | 2025-05-11 16:34 | XMS_ITS | Encounter Summary ---
Author Organization [facility] Address [address] [place] [address] Care Team Providers Care Unit Manager [employer]ience Stores Name Role Phone Wendy Maldonado MD Primary Care Provider [phone] Luli Ibrahim [facility] Primary Care Provider [phone] Neil Howard MD Unavailable Unavailable Uziel Ford MD Unavailable [phone] Eloisa Hu [facility] Primary Care Provider [facility] Juan Lennon MD Primary Care Provider [phone] Luli Ibrahim [facility] Primary Care Provider [phone] Jimy Jay MD Primary Care Provider [phone] Lázaro Estrada MD Primary Care Provider [phone] Juan Hu MD Primary Care Provider [phone] Kamron Sandra DO Primary Care Provider [phone] Encounter Details Date Type Department Care Team (Late st Contact Info) Description 11/01/2017 Abstract [facility] CONVERSION [address] [place] [address] , Generic Tamra, Social History Tobacco Use Types Packs/Day Years Used Date Smoking Tobacco: Smoker, Current Status Unknown Comments Unknown Sex and Gender Information Value Date Recorded Sex Assigned at Female 08/31/2018 1:03 PM REWEAVER Legal Sex Female 7:16 PM CDT Gender Identity Female 08/31/2018 1:03 PM REWEAVER Sexual Orientation Not on file documented as of this encounter Plan of Treatment Not on file documented as of this encounter Visit Diagnoses Not on filedocumented in this encounter Additional Health Concerns Infection Onset Date Last Indicated Resolved Time COVID-19 Rule Out 07/15/2020 07/15/2020 07/16/2020 11:28 AM REWEAVER COVID-19 Rule Out 04/15/2021 04/15/2021 04/15/2021 1:38 AM CDT COVID-19 Rule Out 12/07/2022 12/07/2022 12/07/2022 4:44 PM CDT COVID-19 Rule Out 12/16/2022 12/16/2022 12/16/2022 7:15 PM CDT COVID-19 Rule Out 03/25/2023 03/25/2023 03/25/2023 1:07 PM CDT COVID-19 Rule Out 10/27/2024 10/27/2024 10/27/2024 1:20 PM CDT Respiratory Rule Out 10/27/2024 10/27/2024 025 1:21 PM CDT documented as of this encounter Care Teams Unit Manager [employer]ience Stores Relationship Specialty [place] [address] [place] [address] PCP - General INTERNAL MEDICINE 10/30/17 07/16/18 Luli Ibrahim FNP- [address] [place] [address] PCP - General NURSE PRACTITIONER 07/17/18 03/10/19 Eloisa Hu CMA PCP - General 03/11/19 03/11/19 Juan Hu MD PCP - General FAMILY PRACTICE 03/12/19 05/01/19 Luli Ibrahim [facility]- [address] [place] [address] PCP - General NURSE PRACTITIONER 05/02/19 06/06/19 Jimy Jay MD [address] [facility] [place] [address] PCP - General FAMILY PRACTICE 06/07/19 05/29/20 Lázaro Estrada MD [address] [address] PCP - General SURGERY 05/30/20 03/29/21 Juan Hu MD PCP - General FAMILY PRACTICE 03/30/21 12/06/22 [place] [address] [place] [address] PCP - General FAMILY PRACTICE 12/07/22 Neil Howard MD [address] [place] [address] CARDIOVASCULAR DISEASE 07/17/18 7//2 0 Uziel Ford MD [address] [place] [address] INTERNAL MEDICINE 07/17/18 documented as of this encounter
--- OUTSIDE RECORDS SUMMARY | 2025-05-11 16:34 | XMS_ITS | Encounter Summary ---
Author Organization [facility] Address [address] [place] [address] Care Team Providers Care Tower Hoist Operator Name Role Phone Luli Ibrahim [facility] Primary Care Provider [phone] Neil Howard MD Unavailable Unavailable Uziel Ford MD Unavailable [phone] Eloisa Hu [facility] Primary Care Provider Juan Wilson MD Primary Care Provider [phone] Luli Ibrahim [facility] Primary Care Provider [phone] Jimy Jay MD Primary Care Provider [phone] Lázaro Estrada MD Primary Care Provider [phone] Juan Hu MD Primary Care Provider [phone] Kamron Sandra DO Primary Care Provider [phone] Encounter Details Date Type Department Care Team (Late st Contact Info) Description 01/23/2019 Abstract [facility] CONVERSION [address] [place] [address] , Generic Conversion, Social History Tobacco Use Types Packs/Day Years Used Date Smoking Tobacco: Every Day Smokeless Tobacco: Never Alcohol Use Standard Drinks/Week Comments No 0 (1 standard drink = 0.6 oz pur e alcohol) AUDIT-C Answer Date Recorded Frequency of Alcohol Consumption Never 07/30/2018 Average Number of Drinks Not on file 018 Frequency of Binge Drinking Not on file 07/18 Comments Unknown Sex and Gender Information Value Date Recorded Sex Assigned at Female 08/31/2018 1:03 PM AUTOMOBILE GLASS TECHNICIAN Legal Sex Female 7:16 PM CDT Gender Identity Female 08/31/2018 1:03 PM AUTOMOBILE GLASS TECHNICIAN Sexual Orientation Not on file Occupation Industry [...] Rule Out 07/15/2020 07/15/2020 07/16/2020 11:28 AM AUTOMOBILE GLASS TECHNICIAN COVID-19 Rule Out 04/15/2021 04/15/2021 04/15/2021 1:38 AM CDT COVID-19 Rule Out 12/07/2022 12/07/2022 12/07/2022 4:44 PM CDT COVID-19 Rule Out 12/16/2022 12/16/2022 12/16/2022 7:15 PM CDT COVID-19 Rule Out 03/25/2023 03/25/2023 03/25/2023 1:07 PM CDT COVID-19 Rule Out 10/27/2024 10/27/2024 10/27/2024 1:20 PM CDT Respiratory Rule Out 10/27/2024 10/27/2024 025 1:21 PM CDT documented as of this encounter Care Teams Tower Hoist Operator Relationship Specialty Start Date End Date Luli Ibrahim FNP- [address] [place] [address] PCP - General NURSE PRACTITIONER 07/17/18 03/10/19 Eloisa Hu CMA PCP - General 03/11/19 03/11/19 Juan Hu MD PCP - General FAMILY PRACTICE 03/12/19 05/01/19 Luli Ibrahim FNP- [address] [place] [address] PCP - General NURSE PRACTITIONER 05/02/19 06/06/19 Jimy Jay MD [address] [place] [id number] PCP - General FAMILY PRACTICE 06/07/19 05/29/20 Lázaro Estrada MD [address] [address] PCP - General SURGERY 05/30/20 03/29/21 Juan Hu MD PCP - General FAMILY PRACTICE 03/30/21 12/06/22 [place] [address] [place] [phone] PCP - General FAMILY PRACTICE 12/07/22 Neil Howard MD [address] [place] [address] CARDIOVASCULAR DISEASE 07/17/18 7//2 0 Uziel Ford MD [address] [place] [address] INTERNAL MEDICINE 07/17/18 documented as of this encounter
[2025-05-11 16:41] VITALS: BMI 23.1
[2025-05-11 17:24] VITALS: BP 167/83; PULSE 68; RESP 20; TEMP 36.8; O2SAT 100
[2025-05-11 18:01] VITALS: O2SAT 100
[2025-05-11 19:08] VITALS: PULSE 76; RESP 18; O2SAT 99
[2025-05-11] MEDS: ACETAMINOPHEN 325 MG TABLET 650 MG PO (19:29)
[2025-05-11 20:00] VITALS: PULSE 76; RESP 18; O2SAT 99
[2025-05-11] MEDS: BUPRENORPHINE HCL (*CRX) 2 MG SUBLINGUAL TABLET 12 MG SUBLINGUAL (21:41)
[2025-05-11] MEDS: HYDROcodone/acetaminophen (*CRX) 5-325 MG TABLET 1 TAB PO (21:42)
[2025-05-12] VITALS: BP 137/62; PULSE 76; RESP 18; TEMP 36.4; O2SAT 99
[2025-05-12] MEDS: HYDROcodone/acetaminophen (*CRX) 5-325 MG TABLET 1 TAB PO (03:26)
[2025-05-12 05:30] VITALS: O2SAT 99
[2025-05-12 05:32] LABS: Hematocrit 29.3 % (35.0-42.0); Hemoglobin 8.9 g/dL (11.7-13.8); Mean Corpuscular HGB Conc 30.4 g/dL (32-36); Mean Corpuscular Hemoglobin 29.6 pg (27.0-31.0); Mean Corpuscular Volume 97.3 fL (78.0-102.0); Platelet Count Result 214 K/mm3 (150-420); Red Blood Count 3.01 M/mm3 (4.20-5.40); White Blood Count 4.3 K/mm3 (4.8-10.8)
[2025-05-12 06:13] LABS: Alanine Aminotransferase 10 U/L (6-35); Albumin Level 3.0 g/dL (3.5-5.1); Alkaline Phosphatase 47 U/L (38-126); Anion Gap 3 mmol/L (4-12); Aspartate Amino Transferase 19 U/L (14-36); Bilirubin,Total 0.3 mg/dL (0.2-1.3); Blood Urea Nitrogen 8 mg/dL (7-17); Calcium 8.7 mg/dL (8.4-10.2); Carbon Dioxide 36 mmol/L (22-30); Chloride 101 mmol/L (98-107); Estimated CRCL calculation 74 ml/min; Estimated Glomerular Filt Rate > 60; Glucose 96 mg/dL (65-110); Magnesium 2.0 mg/dL (1.6-2.3); Osmolality Calculated 288 mOsm/kg (285-295); Potassium 4.1 mmol/L (3.4-5.0); Sodium 140 mmol/L (137-145); Total Protein 4.9 g/dL (6.3-8.2)
[2025-05-12] MEDS: LEVOTHYROXINE SODIUM 100 MCG TABLET PO (06:15)
[2025-05-12] MEDS: SUCRALFATE SUSP 100 MG/ML 10 ML UDC 1000 MG PO ×3 (06:15→17:11)
[2025-05-12] MEDS: LEVOTHYROXINE SODIUM 25 MCG TABLET PO (06:16)
[2025-05-12 07:45] VITALS: BP 156/96; PULSE 74; RESP 18; TEMP 36.6; O2SAT 98
[2025-05-12 08:00] VITALS: PULSE 74; RESP 18; O2SAT 98
[2025-05-12] MEDS: PANTOPRAZOLE 40 MG TABLET PO (09:04)
[2025-05-12] MEDS: ACETAMINOPHEN 325 MG TABLET 650 MG PO ×2 (09:04→17:28)
[2025-05-12] MEDS: PRAZOSIN HCL 1 MG CAPSULE 2 MG PO ×3 (09:05→17:28)
[2025-05-12] MEDS: MONTELUKAST SODIUM 10 MG TABLET PO (09:05)
[2025-05-12] MEDS: MULTIVITAMINS THERAPEUTIC TAB (*BKC) 1 TABLET PO (09:05)
[2025-05-12] MEDS: UMECLIDINIUM/VILANTEROL 62.5-25 MCG ELLIPTA 1 PUFF INHALATION (09:06)
--- NOTE | 2025-05-12 09:12 | P.HP_ITS ---
H&P: HPI History of Present Illness Date/Time: 05/12/25 09:12 Chief Complaint: Rehab Narrative: This 70-year-old female with history of colostomy, COPD, chronic respiratory failure with hypoxia on 3 L supplemental oxygen at home, hypertension, anxiety, history of alcohol abuse, arthritis [facility] to [facility] outside hospital with bowel obstruction. patient was treated with medical management at outside hospital after long hospitalization patient had PT/OT evaluation who recommended acute rehab due to moderate weakness. Patient was transferred and admitted to [facility] on evaluation patient with no complaints but was tearful and anxious. Patient denied any chest pain, shortness a breath from baseline, nausea, vomiting, abdominal pain. Patient has colostomy in place reports she is having flatulence and stool noted in colostomy stoma beefy red. labs on admission reviewed unremarkable and vital stable. Review of Systems 2 Review of Systems: All systems reviewed & are unremarkable except as noted in HPI and below PMFSH Past Medical History Medical History Restless leg syndrome History of ETOH abuse Hypothyroidism Hypertension Arthritis Anxiety Colostomy in place Diverticula of colon Presence of stent in coronary artery in patient with coronary artery disease COPD (chronic obstructive pulmonary disease) Chronic respiratory failure with hypoxia Surgical History Surgical History History of colectomy Social History Social History Years smoked: 45 Smoking status: Former smoker Alcohol intake: former Substance use: former Lack of Transportation: No Lack of Food: Never True Current Housing: I Have Housing Concerned About Future Housing: No Difficulty Paying Gas/Electric Bills: No Difficulty Paying for Meds: No Currently Unemployed: No Education: Decline to Answer Difficulty w/ Childcare or Family Care: No Spiritual care concerns: Yes (assembly) Meds Home Medications and Allergies Home Medications ?Medication ?Instructions ?Recorded ?Confirmed ?Type albuterol sulfate 90 mcg/actuation 2 puff inhalation Q 6H PRN 05/11/25 05/11/25 History aerosol inhaler shortness of breath or wheez ing alendronate 70 mg tablet 70 mg PO WEEKLY 05/11/25 History buprenorphine 8 mg-naloxone 2 mg 2.5 film sublingual D AILY 05/11/25 05/12/25 History sublingual film clonidine HCl 0.2 mg tablet 0.2 mg PO Q12H 05/11/25 History escitalopram oxalate 10 mg tablet 10 mg PO DAILY 05/1105/11/25 History hydrochlorothiazide 12.5 mg capsule 12.5 mg PO DAILY 0 05/11/25 05/11/25 History hydroxyzine HCl 25 mg tablet 25 mg PO Q8H PRN itching 05/11/25 05/11/25 History ipratropium 20 mcg-albuterol 100 1 puff inhalation QID 05/11/25 05/11/25 History mcg/actuation mist for inhalation (Combivent Respimat) lactulose 10 gram/15 mL oral 15 ml PO DAILY 05/11/25 0 05/11/25 History solution (Enulose) levothyroxine 125 mcg tablet 125 mcg PO QAM 05/11/25 0 05/11/25 History lisinopril 20 mg tablet 20 mg PO DAILY 05/11/2504/19 History magnesium hydroxide 400 mg/5 mL 30 ml PO DAILY PRN con stipation 05/11/25 05/11/25 History oral suspension montelukast 10 mg tablet 10 mg PO QAM 05/11/25 History multivitamin (Daily Multi-Vitamin 1 tablet PO DAILY 05/11/25 History tablet) ondansetron HCl 4 mg tablet 4 mg PO Q8H PRN nausea and vomiting 05/11/25 05/11/25 History pantoprazole 40 mg tablet,delayed 40 mg PO DAILY 05/1105/11/25 History release polyethylene glycol 3350 17 17 g PO DAILY 05/11/25 History gram/dose oral powder (ClearLax) prazosin 2 mg capsule 2 mg PO Q8H 05/11/25 5 History ropinirole 0.5 mg tablet 0.5 mg PO HS 05/11/25 History sucralfate 100 mg/mL oral 1 g PO TIDWMEAL 05/11/25 History suspension Allergies Allergy/AdvReac Type Severity Reaction Status Date / Time cefaclor Allergy Severe Rash Verified 05/11/25 18:00 gabapentin Allergy Severe Shakiness Verified 05/11/25 18:00 pregabalin Allergy Severe Shakiness Verified 05/11/25 18:02 propoxyphene (From Darvon) Allergy Severe Rash Verified 05/11/25 18:02 tramadol Allergy Severe Seizure Verified 05/11/25 18:02 PAPER TAPE AdvReac Intermediate Rash Uncoded 05/11/25 18:00 Vital Signs Vital Signs - 24 hr 05/11/25 16:30 05/11/25 17:24 05/11/25 18:01 Temperature 98.2 F Pulse Rate 68 Respiratory Rate 20 Blood Pressure 167/83 H Pulse Oximetry 100 100 100 Oxygen Delivery Nasal Cannula Nasal Cannula Oxygen Flow Rate 3 3 05/11/25 19:08 05/11/25 20:00 05/12/25 00:00 Temperature 97.6 F Pulse Rate 76 76 76 Respiratory Rate 18 18 18 Blood Pressure 137/62 Pulse Oximetry 99 99 99 Oxygen Delivery Nasal Cannula Nasal Cannula Nasal Cannula Oxygen Flow Rate 3 3 3 Exam 2 Const: General: comfortable and no acute distress Other: Frail chronically ill female tearful at time HENMT: Mouth: Yes moist mucous membranes Eyes: General: appearance normal, both eyes and all related structures P upils: Equal, round and reactive pupils present Neck: Neck: supple and no JVD Resp: Effort & Inspection: normal respiratory effort Auscultation: wheezes Cardio: Rate: regular rate Rhythm: regular rhythm GI: GI Palp: Yes Soft to palpation Auscultation: normal bowel sounds O ther: colostomy stoma beefy red Abdomen image: 1. : General: Yes bladder normal to palpation Skin: General skin exam: normal color Wounds: wounds noted Neuro: Speech: normal speech Motor exam (neuro): 5/5 motor strength present throughout Extrem: General: normal to inspection Psych: Mental Status: mental status grossly normal Affect: Sad affect present and Anxious affect present H&P: Results Labs Labs: Short CBC 05/12/25 Range/Units 05:17 WBC 4.3 L (4.8-10.8) K/mm3 Hgb 8.9 L (11.7-13.8) g/dL Hct 29.3 L (35.0-42.0) % Plt Count 214 (150-420) K/mm3 [facility] 05/12/25 05:17 Sodium 140 Potassium 4.1 Chloride 101 Carbon Dioxide 36 H BUN 8 Creatinine 0.52 L Glucose 96 Calcium 8.7 Liver Function 05/12/25 Range/Units 05:17 Total Bilirubin 0.3 (0.2-1.3) mg/dL AST 19 (14-36) U/L ALT 10 (6-35) U/L Alkaline Phosphatase 47 (38-126) U/L Albumin 3.0 L (3.5-5.1) g/dL Assessment and Plan Assessment and plan (1) Weakness: Code(s): R53.1 - Weakness Status: Acute Assessment and Plan: admitted after hospitalization for SBO to [facility] * PT/OT (2) Restless leg syndrome: Code(s): G25.81 - Restless legs syndrome Status: Acute Assessment and Plan: * resumed home ropinirole (3) Chronic respiratory failure with hypoxia: Code(s): J96.11 - Chronic respiratory failure with hypoxia Status: Acute Assessment and Plan: COPD with chronic respiratory failure with home supplemental oxygen * continue home inhalers * Nebulizers p.r.n. for wheezing * Supplemental oxygen as needed (4) COPD (chronic obstructive pulmonary disease): Code(s): J44.9 - Chronic obstructive pulmonary disease, unspecified Status: Acute Assessment and Plan: see above Problem 3 (5) Diverticula of colon: Code(s): K57.30 - Diverticulosis of large intestine without perforation or abscess without bleeding Status: Acute Assessment and Plan: Recent hospitalization for SBO with established colostomy * monitor BMs and flatulence * encourage oral hydration * Encourage activity (6) Colostomy in place: Code(s): Z93.3 - Colostomy status Status: Acute Assessment and Plan: * colostomy care daily or as needed (7) Anxiety: Code(s): F41.9 - Anxiety disorder, unspecified Status: Acute Assessment and Plan: patient with severe anxiety tearful at times but does follow outpatient for her anxiety medication was requesting Ativan which had not been filled since December * continue home Lexapro, prazosin, clonidine * Xanax p.r.n. b.i.d. for severe anxiety, patient is aware that she will not be provided a prescription at discharge (8) Arthritis: Code(s): M19.90 - Unspecified osteoarthritis, unspecified site Status: Acute Assessment and Plan: * Voltaren cream b.i.d. added * continue home alendronate (9) Hypertension: Code(s): I10 - Essential (primary) hypertension Status: Acute Assessment and Plan: * resume home clonidine, hydrochlorothiazide, and lisinopril * monitor blood pressure per unit protocol (10) Hypothyroidism: Code(s): E03.9 - Hypothyroidism, unspecified Status: Acute Assessment and Plan: * resume home levothyroxine (11) History of ETOH abuse: Code(s): F10.11 - Alcohol abuse, in remission Status: Acute Assessment and Plan: * resume home multivitamin patient is sober for the last 4 years Plan Code status: Full code per patient DVT prophylaxis: SCD's Stress ulcer prophylaxis: Protonix 40 daily from home PT/OT notes: REHAB Disposition: patient admitted to [facility] for PT / OT and further rehabilitation prior to returning home. Quality VTE Prophylaxis VTE prophylaxis: mechanical ordered Hospitalist MIPS Advance Care Plan I have confirmed that the patient's Advanced Care Plan is present, code status is documented, or surrogate decision maker is listed in patient medical record.: Yes Medication Reconciliation I have utilized all available resources to obtain, update and review the patients current medications (includes all prescriptions, OTC, herbals, cannabis, and nutritional supplements).: Yes The patient is not eligible for med reconciliation; the patient is in a emergent medical situation where delaying treatment would jeopardize the patients health.: No
[2025-05-12] MEDS: [UNRECOGNIZED DRUG - OTHER] SUBLINGUAL ×2 (09:20→21:08)
[2025-05-12] MEDS: NALOXONE SUBLINGUAL ×2 (09:20→21:08)
[2025-05-12] MEDS: BUPRENORPHINE SUBLINGUAL ×2 (09:20→21:08)
[2025-05-12] MEDS: ALPRAZolam (*CRX) 0.5 MG TABLET PO ×2 (10:04→19:29)
[2025-05-12] MEDS: DICLOFENAC SODIUM 1% 100 GM GEL (*BKC) 1 APPLIC TOPICAL ×2 (13:06→21:09)
[2025-05-12 16:35] VITALS: BP 129/75; PULSE 91; RESP 18; TEMP 37.2; O2SAT 98
[2025-05-12] MEDS: LACTULOSE 20 GM/30 ML UDC 10 GM PO (17:28)
[2025-05-12 20:00] VITALS: PULSE 91; RESP 16; O2SAT 98
[2025-05-12] MEDS: ESCITALOPRAM OXALATE 10 MG TABLET PO (21:09)
[2025-05-13] VITALS: BP 157/69; PULSE 91; RESP 16; TEMP 36.7; O2SAT 98
[2025-05-13] MEDS: ACETAMINOPHEN 325 MG TABLET 650 MG PO (05:03)
[2025-05-13 05:30] VITALS: O2SAT 98
[2025-05-13] MEDS: LEVOTHYROXINE SODIUM 25 MCG TABLET PO (06:32)
[2025-05-13] MEDS: SUCRALFATE SUSP 100 MG/ML 10 ML UDC 1000 MG PO ×3 (06:32→17:14)
[2025-05-13] MEDS: LEVOTHYROXINE SODIUM 100 MCG TABLET PO (06:32)
[2025-05-13 08:00] VITALS: BP 117/81; PULSE 97; RESP 18; TEMP 36.1; O2SAT 98
[2025-05-13] MEDS: MONTELUKAST SODIUM 10 MG TABLET PO (08:32)
[2025-05-13] MEDS: PRAZOSIN HCL 1 MG CAPSULE 2 MG PO ×3 (08:33→17:14)
[2025-05-13] MEDS: PANTOPRAZOLE 40 MG TABLET PO (08:33)
[2025-05-13] MEDS: MULTIVITAMINS THERAPEUTIC TAB (*BKC) 1 TABLET PO (08:33)
[2025-05-13] MEDS: UMECLIDINIUM/VILANTEROL 62.5-25 MCG ELLIPTA 1 PUFF INHALATION (08:34)
[2025-05-13] MEDS: NALOXONE SUBLINGUAL ×2 (08:42→20:48)
[2025-05-13] MEDS: BUPRENORPHINE SUBLINGUAL ×2 (08:42→20:48)
[2025-05-13] MEDS: [UNRECOGNIZED DRUG - OTHER] SUBLINGUAL ×2 (08:42→20:48)
[2025-05-13] MEDS: ALPRAZolam (*CRX) 0.5 MG TABLET PO ×2 (08:42→20:46)
[2025-05-13] MEDS: DICLOFENAC SODIUM 1% 100 GM GEL (*BKC) 1 APPLIC TOPICAL ×2 (12:43→20:46)
[2025-05-13 16:40] VITALS: BP 117/71; PULSE 85; RESP 18; TEMP 36.6; O2SAT 98
[2025-05-13] MEDS: ESCITALOPRAM OXALATE 10 MG TABLET PO (20:46)
[2025-05-13 23:48] VITALS: BP 133/76; PULSE 90; RESP 18; TEMP 37.3; O2SAT 96
[2025-05-14 05:30] VITALS: O2SAT 96
[2025-05-14] MEDS: LEVOTHYROXINE SODIUM 100 MCG TABLET PO (05:40)
[2025-05-14] MEDS: SUCRALFATE SUSP 100 MG/ML 10 ML UDC 1000 MG PO ×3 (05:40→16:25)
[2025-05-14] MEDS: LEVOTHYROXINE SODIUM 25 MCG TABLET PO (05:40)
[2025-05-14] MEDS: ALPRAZolam (*CRX) 0.5 MG TABLET PO ×2 (05:40→21:37)
[2025-05-14 08:00] VITALS: BP 130/73; PULSE 80; RESP 20; TEMP 37.5; O2SAT 100
[2025-05-14] MEDS: MULTIVITAMINS THERAPEUTIC TAB (*BKC) 1 TABLET PO (09:33)
[2025-05-14] MEDS: PANTOPRAZOLE 40 MG TABLET PO (09:34)
[2025-05-14] MEDS: MONTELUKAST SODIUM 10 MG TABLET PO (09:34)
[2025-05-14] MEDS: PRAZOSIN HCL 1 MG CAPSULE 2 MG PO ×3 (09:34→17:58)
[2025-05-14] MEDS: DICLOFENAC SODIUM 1% 100 GM GEL (*BKC) 1 APPLIC TOPICAL ×4 (09:35→21:37)
[2025-05-14] MEDS: UMECLIDINIUM/VILANTEROL 62.5-25 MCG ELLIPTA 1 PUFF INHALATION (09:35)
[2025-05-14] MEDS: NALOXONE SUBLINGUAL ×2 (09:37→21:36)
[2025-05-14] MEDS: [UNRECOGNIZED DRUG - OTHER] SUBLINGUAL ×2 (09:37→21:36)
[2025-05-14] MEDS: BUPRENORPHINE SUBLINGUAL ×2 (09:37→21:36)
[2025-05-14 16:00] VITALS: BP 128/85; PULSE 79; RESP 20; TEMP 36.6; O2SAT 99
[2025-05-14 20:00] VITALS: PULSE 78; RESP 18; O2SAT 98
[2025-05-14] MEDS: ESCITALOPRAM OXALATE 10 MG TABLET PO (21:36)
[2025-05-14] MEDS: ACETAMINOPHEN 325 MG TABLET 650 MG PO (21:36)
[2025-05-14] MEDS: MELATONIN 5 MG TABLET PO (21:36)
[2025-05-15] VITALS: BP 126/70; PULSE 78; RESP 18; TEMP 36.9; O2SAT 98
[2025-05-15 05:30] VITALS: O2SAT 98
[2025-05-15] MEDS: ACETAMINOPHEN 325 MG TABLET 650 MG PO ×3 (06:07→21:55)
[2025-05-15] MEDS: LEVOTHYROXINE SODIUM 100 MCG TABLET PO (06:08)
[2025-05-15] MEDS: LEVOTHYROXINE SODIUM 25 MCG TABLET PO (06:08)
[2025-05-15] MEDS: SUCRALFATE SUSP 100 MG/ML 10 ML UDC 1000 MG PO ×3 (06:08→16:30)
[2025-05-15] MEDS: ALPRAZolam (*CRX) 0.5 MG TABLET PO ×2 (07:42→21:55)
[2025-05-15 08:00] VITALS: BP 135/80; PULSE 72; RESP 16; TEMP 37.1; O2SAT 98
[2025-05-15] MEDS: DICLOFENAC SODIUM 1% 100 GM GEL (*BKC) 1 APPLIC TOPICAL ×3 (08:56→17:56)
[2025-05-15] MEDS: UMECLIDINIUM/VILANTEROL 62.5-25 MCG ELLIPTA 1 PUFF INHALATION (08:56)
[2025-05-15] MEDS: [UNRECOGNIZED DRUG - OTHER] SUBLINGUAL ×2 (08:57→22:00)
[2025-05-15] MEDS: NALOXONE SUBLINGUAL ×2 (08:57→22:00)
[2025-05-15] MEDS: BUPRENORPHINE SUBLINGUAL ×2 (08:57→22:00)
[2025-05-15] MEDS: MONTELUKAST SODIUM 10 MG TABLET PO (08:58)
[2025-05-15] MEDS: PANTOPRAZOLE 40 MG TABLET PO (08:58)
[2025-05-15] MEDS: MULTIVITAMINS THERAPEUTIC TAB (*BKC) 1 TABLET PO (08:58)
[2025-05-15] MEDS: PRAZOSIN HCL 1 MG CAPSULE 2 MG PO ×3 (08:58→17:55)
[2025-05-15 16:00] VITALS: BP 114/76; PULSE 76; RESP 18; TEMP 36.7; O2SAT 98
[2025-05-15 20:00] VITALS: PULSE 83; RESP 18; O2SAT 98
[2025-05-15] MEDS: MELATONIN 5 MG TABLET PO (21:55)
[2025-05-15] MEDS: ESCITALOPRAM OXALATE 10 MG TABLET PO (21:56)
[2025-05-16] VITALS: BP 128/76; PULSE 83; RESP 18; TEMP 36.6; O2SAT 98
[2025-05-16 05:30] VITALS: O2SAT 93
[2025-05-16] MEDS: LEVOTHYROXINE SODIUM 25 MCG TABLET PO (06:24)
[2025-05-16] MEDS: LEVOTHYROXINE SODIUM 100 MCG TABLET PO (06:24)
[2025-05-16] MEDS: SUCRALFATE SUSP 100 MG/ML 10 ML UDC 1000 MG PO ×3 (06:25→16:38)
[2025-05-16 08:00] VITALS: BP 100/66; PULSE 76; RESP 20; TEMP 37.4; O2SAT 98
[2025-05-16] MEDS: DICLOFENAC SODIUM 1% 100 GM GEL (*BKC) 1 APPLIC TOPICAL ×4 (08:50→20:16)
[2025-05-16] MEDS: MULTIVITAMINS THERAPEUTIC TAB (*BKC) 1 TABLET PO (08:51)
[2025-05-16] MEDS: MONTELUKAST SODIUM 10 MG TABLET PO (08:51)
[2025-05-16] MEDS: PANTOPRAZOLE 40 MG TABLET PO (08:51)
[2025-05-16] MEDS: ACETAMINOPHEN 325 MG TABLET 650 MG PO (08:51)
[2025-05-16] MEDS: PRAZOSIN HCL 1 MG CAPSULE 2 MG PO ×3 (08:51→17:58)
[2025-05-16] MEDS: NALOXONE SUBLINGUAL ×2 (08:52→20:16)
[2025-05-16] MEDS: [UNRECOGNIZED DRUG - OTHER] SUBLINGUAL ×2 (08:52→20:16)
[2025-05-16] MEDS: BUPRENORPHINE SUBLINGUAL ×2 (08:52→20:16)
[2025-05-16] MEDS: UMECLIDINIUM/VILANTEROL 62.5-25 MCG ELLIPTA 1 PUFF INHALATION (08:56)
[2025-05-16] MEDS: ALPRAZolam (*CRX) 0.5 MG TABLET PO ×2 (09:16→20:15)
[2025-05-16 16:00] VITALS: BP 100/64; PULSE 68; RESP 18; TEMP 36.8; O2SAT 98
[2025-05-16] MEDS: LACTULOSE 20 GM/30 ML UDC 10 GM PO (17:58)
[2025-05-16] MEDS: MELATONIN 5 MG TABLET PO (20:14)
[2025-05-16] MEDS: ESCITALOPRAM OXALATE 10 MG TABLET PO (20:15)
--- NOTE | 2025-05-16 22:20 | PC.NURSE ---
Patient alert and oriented. Pleasant and cooperative. Amb to/from bathroom with gait belt and walker. Gait steady. O2 on 3 lpm/nc. No resp distress observed.Patient able to care for her own ostomy. No c/o offered.
[2025-05-17] VITALS: BP 111/69; PULSE 72; RESP 20; TEMP 37; O2SAT 93
--- NOTE | 2025-05-17 00:20 | PC.NURSE ---
Pt asleep and no signs of discomfort noted. Side rails up x2 and call ron within reach.
--- NOTE | 2025-05-17 00:49 | PC.NURSE ---
Pt up to the bathroom with the walker and standby assist of one. Pt voided and returned to bed with the walker and standby assist of one.
--- NOTE | 2025-05-17 02:06 | PC.NURSE ---
Pt resting quietly in bed and doesnt voice any c/o discomfort.
[2025-05-17] MEDS: ACETAMINOPHEN 325 MG TABLET 650 MG PO (03:04)
--- NOTE | 2025-05-17 03:11 | PC.NURSE ---
Pt c/o right shoulder pain and requested pain medication. Pt was given tylenol 650 mg PO to relieve shoulder discomfort.
--- NOTE | 2025-05-17 04:20 | PC.NURSE ---
Pt requesting a snack and was given rajesh crackers and peanut butter.
[2025-05-17 05:30] VITALS: O2SAT 93
[2025-05-17] MEDS: LEVOTHYROXINE SODIUM 100 MCG TABLET PO (06:22)
[2025-05-17] MEDS: LEVOTHYROXINE SODIUM 25 MCG TABLET PO (06:23)
[2025-05-17] MEDS: SUCRALFATE SUSP 100 MG/ML 10 ML UDC 1000 MG PO ×2 (06:23→11:38)
[2025-05-17] MEDS: ALPRAZolam (*CRX) 0.5 MG TABLET PO ×2 (06:28→14:18)
--- NOTE | 2025-05-17 06:30 | PC.NURSE ---
Pt given synthroid 125 mcg, xanax o.5 mg and carafate 1000 mg PO as ordered.
[2025-05-17 08:00] VITALS: BP 114/73; PULSE 73; RESP 20; TEMP 37.2; O2SAT 94
[2025-05-17] MEDS: DICLOFENAC SODIUM 1% 100 GM GEL (*BKC) 1 APPLIC TOPICAL (09:21)
[2025-05-17] MEDS: MONTELUKAST SODIUM 10 MG TABLET PO (09:22)
[2025-05-17] MEDS: PRAZOSIN HCL 1 MG CAPSULE 2 MG PO ×2 (09:22→12:58)
[2025-05-17] MEDS: PANTOPRAZOLE 40 MG TABLET PO (09:22)
[2025-05-17] MEDS: [UNRECOGNIZED DRUG - OTHER] SUBLINGUAL (09:24)
[2025-05-17] MEDS: UMECLIDINIUM/VILANTEROL 62.5-25 MCG ELLIPTA 1 PUFF INHALATION (09:24)
[2025-05-17] MEDS: BUPRENORPHINE SUBLINGUAL (09:24)
[2025-05-17] MEDS: NALOXONE SUBLINGUAL (09:24)
[2025-05-17] MEDS: MULTIVITAMINS THERAPEUTIC TAB (*BKC) 1 TABLET PO (09:25)
--- NOTE | 2025-05-17 12:55 | P.DS_ITS ---
DS: Admitting Diagnosis Discharge Date 05/17/2025 Admitting Diagnosis Rehab DS: Discharge Diagnosis Discharge Diagnosis (1) Weakness: Code(s): R53.1 - Weakness Status: Acute (2) Restless leg syndrome: Code(s): G25.81 - Restless legs syndrome Status: Acute (3) Chronic respiratory failure with hypoxia: Code(s): J96.11 - Chronic respiratory failure with hypoxia Status: Acute (4) COPD (chronic obstructive pulmonary disease): Code(s): J44.9 - Chronic obstructive pulmonary disease, unspecified Status: Acute (5) Diverticula of colon: Code(s): K57.30 - Diverticulosis of large intestine without perforation or abscess without bleeding Status: Acute (6) Colostomy in place: Code(s): Z93.3 - Colostomy status Status: Acute (7) Anxiety: Code(s): F41.9 - Anxiety disorder, unspecified Status: Acute (8) Arthritis: Code(s): M19.90 - Unspecified osteoarthritis, unspecified site Status: Acute (9) Hypertension: Code(s): I10 - Essential (primary) hypertension Status: Acute (10) Hypothyroidism: Code(s): E03.9 - Hypothyroidism, unspecified Status: Acute Assessment and Plan: * resume home levothyroxine (11) History of ETOH abuse: Code(s): F10.11 - Alcohol abuse, in remission Status: Acute DS: Summary Hospital Course Reason for hospitalization: REHAB Hospital Course: Admission: Patient was a 70-year-old female with history of colostomy, COPD, chronic respiratory failure with hypoxia on 3 L supplemental oxygen at home, hypertension, anxiety, history of alcohol abuse, arthritis [facility] being [facility] to [facility] outside hospital with bowel obstruction. patient was treated with medical management at outside hospital after long hospitalization patient had PT/OT evaluation who recommended acute rehab due to moderate weakness. Patient was transferred and admitted to [facility] swing bed on evaluation patient with no complaints but was tearful and anxious. Patient denied any chest pain, shortness a breath from baseline, nausea, vomiting, abdominal pain. Patient has colostomy in place reports she is having flatulence and stool noted in colostomy stoma beefy red. labs on admission reviewed unremarkable and vital stable. Hospital Course: Patient admitted to the swing bed for physical and occupational therapy to increase her strength and endurance after a long hospitalization for SBO. Patient continue to work in progress with PT/OT as expected overall with improvement to strength and endurance. Patient did have reports during her stay nightmares at night waking her up which she is following with a therapist outpatient initiated melatonin which appear to help patient's symptoms in sleep for the night. Patient's vitals remained stable during her rehab remained on her chronic supplemental oxygen of 3 L nasal cannula. Patient had denied any shortness of breath, chest pain, nausea, vomiting, abdominal pain with continued bowel sounds and flatulence within colostomy bag no signs of infection noted, appearance was beefy red. Patient overall progressed to return home and perform her own ADLs she was discharged home with home health transported via son. Status at Discharge Functional status at discharge: uses cane/walker Overall status at discharge: patient is back to baseline Time Spent with Patient Time attestation: Total time spent providing and/or coordinating discharge services: Time spent: Greater than 30 minutes Exam Const: General: comfortable and no acute distress Other: Frail chronically ill female tearful at time HENMT: Mouth: Yes moist mucous membranes Eyes: General: appearance normal, both eyes and all related structures Pupils: Equal, round and reactive pupils present Neck: Neck: supple and no JVD Resp: Effort & Inspection: normal respiratory effort Auscultation: wheezes Cardio: Rate: regular rate Rhythm: regular rhythm GI: Auscultation: normal bowel sounds Other: colostomy stoma beefy red : General: Yes bladder normal to palpation Bimanual exam- vagina & uterus: bladder normal to palpation Skin: General skin exam: normal color and wounds noted Wounds: wounds noted Neuro: Cranial nerves: Yes Equal, round and reactive pupils present Speech: normal speech Motor exam (neuro): 5/5 motor strength present throughout Extrem: General: normal to inspection Psych: Mental Status: mental status grossly normal Affect: Sad affect present and Anxious affect present Discharge Plan Discharge Attending physician on discharge: Dipak Rodriguez Consulting providers: Inés Garcia Discharging Clinician: Inés Garcia Patient Disposition: Home with Home Health Service Activity: as tolerated Diet: as tolerated Discharge Instructions: 1). [facility] will follow you at discharge for mcc, PT/OT and they will call you to schedule a date and time. Their phone number is [phone]. 2). Colostomy Care * Daily dressing changes * skin barrier monitor for breakdown 3). Arthritis * Voltaren B.I.D to joints How can you care for yourself at home? ? Keep track of any new symptoms or changes in your symptoms. ? Rest until you feel better. ? Be safe with medicines. Take your medicines exactly as prescribed. Call your doctor if you think you are having a problem with your medicine. ? Do not drive after taking a prescription pain medicine. ? Ensure to follow-up with primary care physician as indicated and provide updated medication list provided to you at discharge. When should you call for help? Call 911 anytime you think you may need emergency care. For example, call if: ? You passed out (lost consciousness). Call your doctor now or seek immediate medical care if: ? You have new symptoms like fever, difficulty breathing, Chest pain, vomiting, or rash. ? You have new or different pain. ? You are confused and are having trouble thinking clearly. ? Your symptoms are getting worse. Watch closely for changes in your health, and be sure to contact your doctor if: ? You do not get better as expected. Patient Instructions: Antibiotic Form, Melatonin (By mouth), Fall Prevention for Older Adults (DC), Using Oxygen at Home (DC), Generalized Anxiety Disorder (GEN), Bowel Obstruction (DC), Arthritis (DC) Patient Language: Hungarian Stand Alone Forms: General Discharge Information Follow-up/Referrals: Boaz,Kamron [Other] - 2 weeks Discharge Medications: New melatonin 5 mg Tablet 5 mg PO HS Qty: 30 0RF diclofenac sodium [Voltaren Arthritis Pain] 1 % gel 2 g topical QID Qty: 50 0RF Rx Instructions: apply to single elbow, wrist or hand; for hand includes palm/fingers/back of hand Continued albuterol sulfate 90 mcg/actuation HFA aerosol inhaler 2 puff INHALATION Q6H PRN (Reason: shortness of breath or wheezing) alendronate 70 mg tablet 70 mg PO WEEKLY Patient Comments: Take every Friday buprenorphine-naloxone 8-2 mg film 1 film sublingual .Q12HR Rx Instructions: Place 1 films under tongue twice daily clonidine HCl 0.2 mg tablet 0.2 mg PO Q12H lactulose [Enulose] 10 gram/15 mL solution 15 ml PO DAILY escitalopram oxalate 10 mg tablet 10 mg PO DAILY hydroxyzine HCl 25 mg tablet 25 mg PO Q8H PRN (Reason: itching) Combivent Respimat 20-100 mcg/actuation mist 1 puff inhalation QID Rx Instructions: space evenly during waking hours levothyroxine 125 mcg tablet 125 mcg PO QAM lisinopril 20 mg tablet 20 mg PO DAILY hydrochlorothiazide 12.5 mg capsule 12.5 mg PO DAILY magnesium hydroxide 400 mg/5 mL suspension 30 ml PO DAILY PRN (Reason: constipation) montelukast 10 mg tablet 10 mg PO QAM multivitamin [Daily Multi-Vitamin] Tablet 1 tablet PO DAILY ondansetron HCl 4 mg tablet 4 mg PO Q8H PRN (Reason: nausea and vomiting) pantoprazole 40 mg tablet,delayed release (DR/EC) 40 mg PO DAILY prazosin 2 mg capsule 2 mg PO Q8H ropinirole 0.5 mg tablet 0.5 mg PO HS sucralfate 100 mg/mL suspension 1 g PO TIDWMEAL Rx Instructions: Before polyethylene glycol 3350 [ClearLax] 17 gram/dose powder 17 g PO DAILY Date of admission: 05/11/25 16:21 Primary Care Provider: PitoKamron Admitting Provider: Dipak Rodriguez Attending physician on admission: Dipak Rodriguez Condition: Improved Quality VTE Prophylaxis VTE prophylaxis: mechanical ordered -Patient's previous records reviewed on admission -discussed all findings and current treatment plan with patient/Family/POA -Consultations reviewed for recommendations -Patient's disposition for safe discharge discussed with nurse case management -radiology imaging, EKG and test results I have personally reviewed and interpreted unless otherwise specified Dictation performed by [employer] direct speech recognition software, therefore flask pusher variants and typographical errors may occur. Hospitalist MIPS Heart Failure (Exclusion) Patient has history of Heart Transplant or Left Ventricular Assistive Device?: No IF YES, STOP HERE Heart Failure (Qualifier) Patient has current or prior documentation of LVEF less than or equal to 40%, or mod/servere depressed LVSF?: No IF NO, STOP HERE
--- NOTE | 2025-05-17 14:30 | PC.NURSE ---
Discharge instruction given to son and patient, All . Suboxone (41films)sent home with patientPt leaves facility at 1420 via wheel chair, son by her side.
--- NOTE | 2025-05-17 14:34 | PC.NURSE ---
Discharge instruction given to son and patients. Meds discussed and side effect information refused by son. Suboxone films (41 films) sent home with patient informed of new instructions. Patient left building via WC with home O2/3L applied follow by son to personal vehicle. No pain or distress noted, no questions asked. Informed to call facility if question arise.
== END 2025-05-17 14:20 | disposition home health service (06) | DRG 948 ==
PROVIDERS: Nurse Practitioner Family; Admitting Provider Internal Medicine; Visit Provider Internal Medicine
DX: R53.1 Weakness (principal); J96.11 Chronic respiratory failure with hypoxia; K57.30 Diverticulosis of large intestine without perforation or abscess without bleeding; Z93.3 Colostomy status; Z87.19 Personal history of other diseases of the digestive system; E03.9 Hypothyroidism, unspecified; F10.11 Alcohol abuse, in remission; F41.9 Anxiety disorder, unspecified; G25.81 Restless legs syndrome; I10 Essential (primary) hypertension; J44.9 Chronic obstructive pulmonary disease, unspecified; M19.90 Unspecified osteoarthritis, unspecified site; Z99.81 Dependence on supplemental oxygen; Z95.5 Presence of coronary angioplasty implant and graft; Z90.49 Acquired absence of other specified parts of digestive tract; Z87.891 Personal history of nicotine dependence
CPT/HCPCS: 36415; 80053; 83735; 85027; 97110; 97161; 97165; 97530; 97535; A9270